=== PATIENT | male | born 1945 | race Caucasian/White ===

== ENCOUNTER 2018-12-17 15:18 | Emergency (ER) | payer MEDICARE ==
[2018-12-17 15:25] VITALS: BP 147/79; PULSE 62; RESP 18; TEMP 98.2
[2018-12-17] MEDS ORDERED: Acetaminophen-Codeine 300-30mg TAB PO STA (15:57)
[2018-12-17] MEDS ORDERED: DEXAMETHASONE 4 MG TAB PO STA (15:57)
[2018-12-17] MEDS ORDERED: KETOROLAC 60 MG/2 ML VIAL IM STA (15:57)
[2018-12-17] MEDS ORDERED: ACET/COD 300 MG/30 MG STARTER PACK 6 TAB BTL PO STA (15:57)
[2018-12-17] MEDS ORDERED: ACETAMINOPHEN TAB 500 MG TAB PO STA (15:58)
--- NOTE | 2018-12-17 17:04 | CT ---
EXAMINATION TYPE: CT lumbar spine wo con DATE OF EXAM: 12/17/2018 4:50 PM COMPARISON: None HISTORY: Right left pain/burning sensation CT DLP: 1464.1 mGycm Automated exposure control for dose reduction was used. Unenhanced CT of the lumbar spine was performed. Bone and soft tissue window settings are submitted as well as coronal and sagittal reconstructions. Lumbar vertebra have normal alignment. Disc spaces are fairly normal for age. There is hypertrophic s purring of the endplates. There is no compression fracture. There is no lumbar paraspinal mass. Poste rior elements are intact. There is no focal bone destruction. There is some mild lateral recess steno sis at L3-4 L4-5 due to facet arthropathy and ligamentum flavum thickening. The sacroiliac joints salomón ear intact. IMPRESSION: Hypertrophic degenerative changes. Lateral recess stenosis. No significant spinal stenosis.
--- NOTE | 2018-12-17 17:06 | CT ---
EXAMINATION TYPE: CT sacrum wo con DATE OF EXAM: 12/17/2018 COMPARISON: None HISTORY: Right left pain/burning sensation CT DLP: 1464.1 mGycm Automated exposure control for dose reduction was used. FINDINGS: Sacral segments have normal alignment. There is no evidence of a fracture. Posterior elements are int act. Presacral soft tissues appear normal. There is no pathologic fluid collection. Sacroiliac joints appear intact. Prostate is enlarged and measures 6 cm. IMPRESSION: ENLARGED PROSTATE. NORMAL SACRUM. NO FRACTURE. NO FOCAL BONE DESTRUCTION.
--- NOTE | 2018-12-17 17:21 | ED ---
Back Pain HPI - General Chief Complaint: Extremity Problem,Nontraumatic Stated Complaint: Rt leg pain Time Seen by Provider: 12/17/18 15:30 Source: patient, RN notes reviewed, old records reviewed Limitations: no limitations - History of Present Illness Initial Comments: This is a 73-year-old male the ER for evaluation. Patient coming in with severe back pain long recent travel history long car ride. Patient is has history of back pain but usually resolves on its own. No loss of bowel or bladder no neurological complaints. No trauma. No fevers. MD Complaint: back pain -: days(s) Similar Symptoms Previously: Yes Place: home Radiation: right leg Severity: moderate Severity scale (1-10): 7 Quality: stabbing, aching Consistency: constant Improves With: none Worsens With: none Associated Symptoms: denies other symptoms - Related Data Home Medications Medication Instructions Recorded Confirmed Albuterol Sulfate [Proair Hfa] 1 puff INHALATION RT-Q4H PRN 03/29/18 12/17/18 Aspirin [Adult Low Dose Aspirin EC] 81 mg PO DAILY 03/29/18 12/17/18 Atenolol [Tenormin] 50 mg PO DAILY 03/29/18 12/17/18 Fluticasone/Salmeterol [Advair 1 puff INHALATION RT-DAILY 03/29/18 12/17/18 250-50 Diskus] Lisinopril [Zestril] 2.5 mg PO HS 03/29/18 12/17/18 Tamsulosin HCl [Flomax] 0.4 mg PO BID 03/29/18 12/17/18 Multivitamins, Thera [Multivitamin 1 tab PO DAILY 12/17/18 12/17/18 (formulary)] Allergies Allergy/AdvReac Type Severity Reaction Status Date / Time Penicillins Allergy Unknown Verified 12/17/18 15:53 Childhood atorvastatin AdvReac Unknown Verified 12/17/18 15:53 Review of Systems ROS Statement: Those systems with pertinent positive or pertinent negative responses have been documented in the HPI. ROS Other: All systems not noted in ROS Statement are negative. Past Medical History Past Medical History: Asthma, COPD, Diabetes Mellitus, Hyperlipidemia History of Any Multi-Drug Resistant Organisms: None Reported Past Surgical History: Cholecystectomy, Tonsillectomy Past Anesthesia/Blood Transfusion Reactions: No Reported Reaction Past Psychological History: No Psychological Hx Reported Smoking Status: Former smoker Past Alcohol Use History: Occasional Past Drug Use History: None Reported General Exam Limitations: no limitations General appearance: alert, in no apparent distress Head exam: Present: atraumatic, normocephalic, normal inspection Eye exam: Present: normal appearance, PERRL, EOMI. Absent: scleral icterus, conjunctival injection, periorbital swelling ENT exam: Present: normal exam, mucous membranes moist Neck exam: Present: normal inspection. Absent: tenderness, meningismus, lymphadenopathy Respiratory exam: Present: normal lung sounds bilaterally. Absent: respiratory distress, wheezes, rales, rhonchi, stridor Cardiovascular Exam: Present: regular rate, normal rhythm, normal heart sounds. Absent: systolic murmur, diastolic murmur, rubs, gallop, clicks GI/Abdominal exam: Present: soft, normal bowel sounds. Absent: distended, tenderness, guarding, rebound, rigid Extremities exam: Present: normal inspection, full ROM, normal capillary refill. Absent: tenderness, pedal edema, joint swelling, calf tenderness Back exam: Present: normal inspection Neurological exam: Present: alert, oriented X3, CN II-XII intact Psychiatric exam: Present: normal affect, normal mood Skin exam: Present: warm, dry, intact, normal color. Absent: rash Course Vital Signs 12/17/18 12/17/18 15:21 17:51 Temperature 98.2 F 98.2 F Pulse Rate 62 62 Respiratory 18 18 Rate Blood Pressure 147/79 147/79 O2 Sat by Pulse 99 99 Oximetry Medical Decision Making - Medical Decision Making 73 male the ER for evaluation of back pain. Severe back pain with history of back pain is had recent travel history, patient's concern for placed back pain is and persistent usually does not last this long. Patient does have CT of lumbosacral spine which is negative. Pain is controlled and patient can be discharged - Radiology Data Radiology results: report reviewed (CT lumbosacral spine. No significant acute dz found), image reviewed Disposition Clinical Impression: Back pain, Sciatica Disposition: HOME SELF-CARE Condition: Good Instructions (If sedation given, give patient instructions): Sciatica (ED), Lumbar Radiculopathy (ED) Is patient prescribed a controlled substance at d/c from ED?: No Referrals: Kenji Painter DO [Primary Care Provider] - 1-2 days
--- NOTE | 2018-12-19 04:33 | CDI ---
Documentation Clarification OP Dear Chapo MANUEL, DO Please do addendum to ED report for missing HPI and Physical examination. Thank you, Rufus Schultz [employer] Starter If you have any questions, please contact Lead Software Developer at [phone] [facility]
== END 2018-12-17 17:51 | disposition home or self-care (01) ==
LOC: EC 15:18
DX: M54.31 Sciatica, right side (principal); J44.9 Chronic obstructive pulmonary disease, unspecified; Z87.891 Personal history of nicotine dependence; Z79.82 Long term (current) use of aspirin; Z79.51 Long term (current) use of inhaled steroids; Z79.899 Other long term (current) drug therapy; Z88.0 Allergy status to penicillin; Z88.8 Allergy status to other drugs, medicaments and biological substances
CPT/HCPCS: 99284; 96372; 72131; 72192; J8540; J1885

== ENCOUNTER → 2018-12-28 | Outpatient (CLI) | payer MEDICARE ==
--- NOTE | 2018-12-28 14:21 | MR ---
EXAMINATION TYPE: MR lumbar spine wo con DATE OF EXAM: 12/28/2018 COMPARISON: CT lumbar spine December 17, 2018 HISTORY: Acute low back pain per order. Right leg pain for 2 weeks or sciatica per patient. TECHNIQUE: Multiplanar, multisequence imaging of the lumbar spine is performed without IV contrast. FINDINGS: There is dextroconvex scoliotic curvature centered at L1-L2 level redemonstrated. Sagittal images of the lumbar spine show vertebral body heights to remain satisfactory. Multilevel disc desicc ation is present. There is moderate disc space narrowing L1-L2 level redemonstrated. There is mild-t o-moderate disc space narrowing L2-L3 level redemonstrated. The conus medullaris is normal in positio n and signal ending mid L1 level. The bone marrow signal intensity is overall heterogeneous. There i s moderate multilevel anterior spurring in the lower thoracic and upper lumbar spine. Axial images show the T12-L1 level to appear within normal limits. Axial images at the L1-L2 level shows moderate broad disc bulge effacing the anterior thecal sac and causing mild left-sided anterior inferior neural foraminal narrowing. Axial images at L2-L3 level show moderate broad disc bulge minimally effacing anterior thecal sac wit h mild facet degenerative changes bilaterally and causing mild left greater than right bilateral ante rior inferior neural foraminal narrowing. Axial images at L3-L4 level show mild facet degenerative changes bilaterally with ligamentum flavum h ypertrophy. There is moderate broad disc bulge with left paracentral disc extrusion extending superio rly sagittal image 8 and axial image 15 effacing lateral recess. There is mild bilateral anterior inf erior neural foraminal narrowing. Axial images at the L4-L5 level show [id number] facet degenerative changes bilaterally. There i s increased signal posteriorly consistent with with annular tear. Broad-based disc protrusion minimal ly effacing anterior thecal sac. Bilateral neural foramina are patent. Axial images at L5-S1 level shows moderate facet degenerative changes bilaterally. There is right par acentral/foraminal disc protrusion axial image 3 causing asymmetric severe right-sided neural foramin al narrowing and encroachment on right L5 nerve with loss of the surrounding fat plane seen on sagitt al images 12 and 13 and axial image 3. Left-sided neural foramina is patent. No suspicious incidental retroperitoneal findings are present. IMPRESSION: Slight scoliotic curvature upper lumbar spine with multilevel degenerative changes as det litzy above. Attention to the L5-S1 level where a right paracentral/foraminal disc herniation encroac hes on right L5 nerve likely accounting for patient's radiculopathy type symptoms.
== END | disposition home or self-care (01) ==
LOC: RADMRIMAIN 10:56
PROVIDERS: ATTEND Family Medicine
DX: M51.27 Other intervertebral disc displacement, lumbosacral region (principal); M47.817 Spondylosis without myelopathy or radiculopathy, lumbosacral region; M41.86 Other forms of scoliosis, lumbar region
CPT/HCPCS: 72148

== ENCOUNTER 2020-02-20 08:59 | Inpatient (IN) | payer MEDICARE ==
[2020-02-20] MEDS ORDERED: ACETAMINOPHEN TAB 500 MG TAB PO STA (09:26)
[2020-02-20] MEDS ORDERED: ACETAMINOPHEN TAB 500 MG TAB PO PRN (09:26)
[2020-02-20] MEDS ORDERED: IPRATROPIUM-ALBUTEROL 3 ML NEB INHALATION STA (09:27)
--- NOTE | 2020-02-20 09:30 | ED ---
General Adult HPI - General Chief complaint: Shortness of Breath Stated complaint: fever, chills Time Seen by Provider: 02/20/20 09:04 Source: patient, RN notes reviewed Mode of arrival: ambulatory Limitations: no limitations - History of Present Illness Initial comments: Patient is a pleasant 74-year-old male presenting to the emergency Department with complaints of fever and chills. Onset of symptoms was around 2 days ago. Patient does have dry cough. Patient does feel a little bit short of breath. Dyspnea and cough feel similar to previous COPD. No leg pain or leg swelling. - Related Data Home Medications Medication Instructions Recorded Confirmed Albuterol Sulfate [Proair Hfa] 2 puff INHALATION RT-Q4H PRN 03/29/18 02/20/20 Aspirin [Adult Low Dose Aspirin EC] 81 mg PO DAILY 03/29/18 02/20/20 Atenolol [Tenormin] 50 mg PO DAILY 03/29/18 02/20/20 Fluticasone/Salmeterol [Advair 1 puff INHALATION RT-DAILY 03/29/18 02/20/20 250-50 Diskus] Lisinopril [Zestril] 2.5 mg PO HS 03/29/18 02/20/20 Tamsulosin HCl [Flomax] 0.8 mg PO HS 03/29/18 02/20/20 Multivitamins, Thera [Multivitamin 1 tab PO DAILY 12/17/18 02/20/20 (formulary)] Rosuvastatin Calcium [Crestor] 5 mg PO HS 02/20/20 02/20/20 Allergies Allergy/AdvReac Type Severity Reaction Status Date / Time atorvastatin Allergy Unknown Verified 02/20/20 10:29 Penicillins Allergy Unknown Verified 02/20/20 10:29 Childhood Review of Systems ROS Statement: Those systems with pertinent positive or pertinent negative responses have been documented in the HPI. ROS Other: All systems not noted in ROS Statement are negative. Constitutional: Reports: fever, chills Eyes: Denies: eye pain ENT: Denies: ear pain Respiratory: Reports: cough, dyspnea Cardiovascular: Denies: chest pain Endocrine: Reports: fatigue Gastrointestinal: Denies: abdominal pain Genitourinary: Denies: dysuria Musculoskeletal: Denies: back pain Skin: Denies: rash Neurological: Denies: weakness Past Medical History Past Medical History: Asthma, COPD, Diabetes Mellitus, Hyperlipidemia History of Any Multi-Drug Resistant Organisms: None Reported Past Surgical History: Cholecystectomy, Tonsillectomy Past Anesthesia/Blood Transfusion Reactions: No Reported Reaction Past Psychological History: No Psychological Hx Reported Smoking Status: Former smoker Past Alcohol Use History: Occasional Past Drug Use History: None Reported General Exam Limitations: no limitations General appearance: alert, in no apparent distress Head exam: Present: normocephalic Eye exam: Present: normal appearance Neck exam: Present: normal inspection Respiratory exam: Present: decreased breath sounds Cardiovascular Exam: Present: regular rate, normal rhythm GI/Abdominal exam: Present: soft. Absent: tenderness Extremities exam: Present: normal inspection. Absent: pedal edema, calf tenderness Back exam: Present: normal inspection Neurological exam: Present: alert Psychiatric exam: Present: normal affect, normal mood Skin exam: Present: normal color Course Vital Signs 02/20/20 02/20/20 02/20/20 09:01 09:57 10:09 Temperature 101.2 F H Pulse Rate 105 H 97 97 Respiratory 20 Rate Blood Pressure 152/73 O2 Sat by Pulse 92 L Oximetry - Reevaluation(s) Reevaluation #1: 02/20/20 11:03 Patient does meet sepsis criteria diagnosed at 11 AM. Blood culture and lactic acid and IV antibiotics will be ordered. EKG Findings - EKG Comments: EKG Findings:: Normal sinus rhythm 98. MS 134. QRS 96. QT 344. QTC 439. Normal axis. Normal QRS. Inferior lateral T wave inversion. Medical Decision Making - Medical Decision Making Patient reevaluated and updated. Dr. Porter has been paged for admission, omari mitchell for Dr. Painter. - Lab Data Result diagrams: 02/20/20 09:26 02/20/20 09:26 Lab Results 02/20/20 02/20/20 02/20/20 Range/Units 09:26 09:26 09:26 WBC 12.9 H (3.8-10.6) k/uL RBC 4.99 (4.30-5.90) m/uL Hgb 15.4 (13.0-17.5) gm/dL Hct 45.6 (39.0-53.0) % MCV 91.3 (80.0-100.0) fL MCH 30.9 (25.0-35.0) pg MCHC 33.8 (31.0-37.0) g/dL RDW 12.7 (11.5-15.5) % Plt Count 347 (150-450) k/uL Neutrophils % 81 % Lymphocytes % 8 % Monocytes % 8 % Eosinophils % 1 % Basophils % 0 % Neutrophils # 10.5 H (1.3-7.7) k/uL Lymphocytes # 1.1 (1.0-4.8) k/uL Monocytes # 1.0 (0-1.0) k/uL Eosinophils # 0.2 (0-0.7) k/uL Basophils # 0.1 (0-0.2) k/uL PT 10.4 (9.0-12.0) sec INR 1.0 (<1.2) APTT 28.2 (22.0-30.0) sec D-Dimer 0.67 H (<0.60) mg/L FEU Sodium 135 L (137-145) mmol/L Potassium 4.0 (3.5-5.1) mmol/L Chloride 102 (98-107) mmol/L Carbon Dioxide 23 (22-30) mmol/L Anion Gap 10 mmol/L BUN 27 H (9-20) mg/dL Creatinine 1.03 (0.66-1.25) mg/dL Est GFR (CKD-EPI)AfAm 84 (>60 ml/min/1.73 sqM) Est GFR (CKD-EPI)NonAf 73 (>60 ml/min/1.73 sqM) Glucose 197 H (74-99) mg/dL Plasma Lactic Acid Daniele (0.7-2.0) mmol/L Calcium 9.3 (8.4-10.2) mg/dL Magnesium 1.7 (1.6-2.3) mg/dL Total Bilirubin 1.0 (0.2-1.3) mg/dL AST 20 (17-59) U/L ALT 18 (4-49) U/L Alkaline Phosphatase 67 (38-126) U/L Lactate Dehydrogenase 457 (313-618) U/L Creatine Kinase 70 (55-170) U/L C-Reactive Protein 199.6 H (<10.0) mg/L Total Protein 6.4 (6.3-8.2) g/dL Albumin 3.5 (3.5-5.0) g/dL 07/01/20 Range/Units 09:26 WBC (3.8-10.6) k/uL RBC (4.30-5.90) m/uL Hgb (13.0-17.5) gm/dL Hct (39.0-53.0) % MCV (80.0-100.0) fL MCH (25.0-35.0) pg MCHC (31.0-37.0) g/dL RDW (11.5-15.5) % Plt Count (150-450) k/uL Neutrophils % % Lymphocytes % % Monocytes % % Eosinophils % % Basophils % % Neutrophils # (1.3-7.7) k/uL Lymphocytes # (1.0-4.8) k/uL Monocytes # (0-1.0) k/uL Eosinophils # (0-0.7) k/uL Basophils # (0-0.2) k/uL PT (9.0-12.0) sec INR (<1.2) APTT (22.0-30.0) sec D-Dimer (<0.60) mg/L FEU Sodium (137-145) mmol/L Potassium (3.5-5.1) mmol/L Chloride (98-107) mmol/L Carbon Dioxide (22-30) mmol/L Anion Gap mmol/L BUN (9-20) mg/dL Creatinine (0.66-1.25) mg/dL Est GFR (CKD-EPI)AfAm (>60 ml/min/1.73 sqM) Est GFR (CKD-EPI)NonAf (>60 ml/min/1.73 sqM) Glucose (74-99) mg/dL Plasma Lactic Acid Daniele 1.9 (0.7-2.0) mmol/L Calcium (8.4-10.2) mg/dL Magnesium (1.6-2.3) mg/dL Total Bilirubin (0.2-1.3) mg/dL AST (17-59) U/L ALT (4-49) U/L Alkaline Phosphatase (38-126) U/L Lactate Dehydrogenase (313-618) U/L Creatine Kinase (55-170) U/L C-Reactive Protein (<10.0) mg/L Total Protein (6.3-8.2) g/dL Albumin (3.5-5.0) g/dL - Radiology Data Radiology results: image reviewed (X-ray does show left lower lobe infiltrate.) Critical Care Time Critical Care Time: Yes Total Critical Care Time: 31 Disposition Clinical Impression: Pneumonia, Sepsis Disposition: ADMITTED IP TO THIS HOSP Is patient prescribed a controlled substance at d/c from ED?: No Referrals: Kenji Painter DO [Primary Care Provider] - 1-2 days Decision Time: 11:04
--- NOTE | 2020-02-20 09:58 | XR ---
EXAMINATION TYPE: XR chest 1V portable DATE OF EXAM: 02/20/2020 HISTORY: Shortness of breath. COMPARISON: None. TECHNIQUE: Single view of the chest is submitted. FINDINGS: Demonstrated are scattered senescent parenchymal change. Patchy density left lower lobe may reflect pneumonia. Correlate clinically. The heart is stable. Hilar and mediastinal structures are within normal limits. Degenerative changes are seen of the dorsal spine. IMPRESSION: 1. Patchy density left lower lobe may reflect pneumonia. Correlate clinically.
[2020-02-20 10:09] LABS: Basophils # (A) 0.1 k/uL (0-0.2); Basophils % (A) 0 %; Eosinophils # (A) 0.2 k/uL (0-0.7); Eosinophils % (A) 1 %; HCT 45.6 % (39.0-53.0); HGB 15.4 gm/dL (13.0-17.5); Lymphocytes # (A) 1.1 k/uL (1.0-4.8); Lymphocytes % (A) 8 %; MCH 30.9 pg (25.0-35.0); MCHC 33.8 g/dL (31.0-37.0); MCV 91.3 fL (80.0-100.0); Mean Platelet Volume 8.2; Monocytes % (A) 8 %; Neutrophils # (A) 10.5 k/uL (1.3-7.7); Neutrophils % (A) 81 %; Platelet Count 347 k/uL (150-450); RBC 4.99 m/uL (4.30-5.90); RDW 12.7 % (11.5-15.5); WBC 12.9 k/uL (3.8-10.6)
[2020-02-20 10:12] LABS: Albumin 3.5 g/dL (3.5-5.0); Calcium 9.3 mg/dL (8.4-10.2); Magnesium 1.7 mg/dL (1.6-2.3); Total Protein 6.4 g/dL (6.3-8.2)
[2020-02-20 10:19] LABS: Partial Thromboplastin Time 28.2 sec (22.0-30.0); Prothrombin Time 10.4 sec (9.0-12.0)
[2020-02-20 10:24] LABS: D-Dimer 0.67 mg/L FEU (<0.60)
[2020-02-20 10:30] LABS: C Reactive Protein 199.6 mg/L (<10.0)
[2020-02-20] MEDS ORDERED: AZITHROMYCIN 500 MG in SODIUM CHLORIDE 0.9% 250 ML IVPB STA (11:05)
[2020-02-20] MEDS ORDERED: IPRATROPIUM-ALBUTEROL 3 ML NEB INHALATION PRN (11:05)
[2020-02-20] MEDS ORDERED: PNEUMONIA PROTOCOL UTILIZED 1 EACH MISC PO PRN (11:05)
[2020-02-20] MEDS: SODIUM CHLORIDE 0.9% 1,000 ML IV SCH ×2 (11:48→21:32)
[2020-02-20] MEDS ORDERED: PNEUMOCOCCAL VACC-PNEUMOVAX 23 25 MCG/0.5 ML VIAL IM ONE (12:16)
[2020-02-20] MEDS: IPRATROPIUM-ALBUTEROL 3 ML NEB INHALATION SCH ×3 (16:31→19:39)
[2020-02-20 18:44] LABS: Ferritin 503.6 ng/mL (22.0-322.0)
[2020-02-20] MEDS ORDERED: ENOXAPARIN 40 MG/0.4 ML SYRINGE SQ SCH (21:00)
[2020-02-20] MEDS: TAMSULOSIN 0.4 MG CAP.ER.24H PO SCH (21:24)
[2020-02-20] MEDS: LISINOPRIL 2.5 MG TAB PO SCH (21:24)
[2020-02-20] MEDS: Rosuvastatin Calcium [Crestor] 5 MG PO SCH (21:25)
--- NOTE | 2020-02-20 22:48 | P.HPIM ---
History of Present Illness H&P Date: 02/20/20 Chief Complaint: Fever History of presenting complaint: This is a pleasant 74-year-old patient of Dr. munroe. Chronic stable medical conditions include COPD, diabetes, GERD, osteoarthritis, hyperlipidemia, BPH, chronic low back pain. Patient to 3 days presents with fever or chills dry cough. Decreased appetite is tired rundown. Having body aches. Patient had a 101.2 in the ER. Patient was started on ceftriaxone and Zithromax for the same. Not bringing up any sputum. Rather tired and rundown. Review of systems: GEN.: Fever or chills EYES: None HEENT: Decreased hearing NECK: None RESPIRATORY: Dry cough CARDIOVASCULAR: None GASTROINTESTINAL: None GENITOURINARY: None MUSCULOSKELETAL: None LYMPHATICS: None HEMATOLOGICAL: None PSYCHIATRY: None NEUROLOGICAL: None Past medical history to include: COPD, GERD, hyperlipidemia, osteoarthritis, BPH, primary low back pain Social history: Patient smoked for 34 years stopped in 1999. Alcohol occasionally. . Retired Physical examination: VITAL SIGNS: 101.2, 105, 20, 152/73, 92% room air GENERAL: [BMI 29.5, laying in bed, tired appearing. EYES: Pupils equal. Conjunctiva normal. HEENT: External appearance of nose and ears normal, oral cavity grossly normal. NECK: JVD not raised; masses not palpable. HEART: First and second heart sounds are normal; no edema. LUNGS: Respiratory rate normal; decreased breath sounds. ABDOMEN: Soft, nontender, liver spleen not palpable, no masses palpable. PSYCH: [Alert and oriented x3; mood and affect tired l. NEUROLOGICAL: Cranial nerves grossly intact; no facial asymmetry, power and sensation grossly intact. LYMPHATICS: No lymph nodes palpable in the axilla and neck INVESTIGATIONS, reviewed in the clinical context: White count 12.9 hemoglobin 15.4 platelets 347 neutrophils 10.5. D-dimer 0.67 potassium 4 bun 27 creatinine 1.03 ferritin 503 CRP 199 pro calcitonin 1.61 Troponin I 0.20 EKG tracing personally reviewed by me-flipped T waves in lateral leads Chest x-ray film personally reviewed by me-showing infiltrate Assessment: -This is a patient presented with 3 days of fever or chills. Dry cough. No sputum production. Bodyaches. Pulse ox 92% on room air. Suspect gram-negative pneumonia. Need to consider COVID 19 -COPD in an ex-smoker -Diabetes mellitus type 2 -GERD -Hyperlipidemia -Primary osteoarthritis -BPH Plan: Patient started and IV ceftriaxone Zithromax and ear. Home medications resumed. IV fluids. COVID 19 PCR has been sent out. Care was discussed with the patient. We'll start the patient on Lovenox therapeutic dose and steroids. Consult infectious disease. Past Medical History Past Medical History: Asthma, COPD, Diabetes Mellitus, GERD/Reflux, Hyperlipi demia, Osteoarthritis (OA), Prostate Disorder Additional Past Medical History / Comment(s): BPH, chronic low back pain History of Any Multi-Drug Resistant Organisms: None Reported Past Surgical History: Cholecystectomy, Orthopedic Surgery, Tonsillectomy Additional Past Surgical History / Comment(s): R rotator cuff surgery, lumbar epidural injections, colonoscopy Past Anesthesia/Blood Transfusion Reactions: No Reported Reaction Smoking Status: Former smoker - Past Family History Father Family Medical History: Cancer Additional Family Medical History / Comment(s): Pt cannot recall type of cancer. Mother Family Medical History: Coronary Artery Disease (CAD) Medications and Allergies Home Medications Medication Instructions Recorded Confirmed Type Albuterol Sulfate [Proair Hfa] 2 puff INHALATION RT-Q4H PRN 03/29/18 02/20/20 History Aspirin [Adult Low Dose Aspirin EC] 81 mg PO DAILY 03/29/18 02/20/20 History Atenolol [Tenormin] 50 mg PO DAILY 03/29/18 02/20/20 History Fluticasone/Salmeterol [Advair 1 puff INHALATION RT-DAILY 03/29/18 02/20/20 History 250-50 Diskus] Lisinopril [Zestril] 2.5 mg PO HS 03/29/18 02/20/20 History Tamsulosin HCl [Flomax] 0.8 mg PO HS 03/29/18 02/20/20 History Multivitamins, Thera [Multivitamin 1 tab PO DAILY 12/17/18 02/20/20 History (formulary)] Rosuvastatin Calcium [Crestor] 5 mg PO HS 02/20/20 02/20/20 History Allergies Allergy/AdvReac Type Severity Reaction Status Date / Time atorvastatin Allergy Unknown Verified 02/20/20 10:29 Penicillins Allergy Unknown Verified 07/01/20 10:29 Childhood Physical Exam Vitals: Vital Signs Temp Pulse Pulse Resp BP BP BP 02/20/20 19:49 95 18 02/20/20 19:39 94 18 02/20/20 19:30 98.2 F 91 20 156/73 02/20/20 16:41 96 02/20/20 16:31 96 02/20/20 15:29 19 02/20/20 15:22 98.1 F 02/20/20 14:55 99.5 F 98 19 172/81 02/20/20 13:20 98.5 F 88 18 118/66 02/20/20 10:58 100.1 F H 88 18 104/69 02/20/20 10:09 97 02/20/20 09:57 97 02/20/20 09:01 101.2 F H 105 H 20 152/73 Pulse Ox 02/20/20 19:49 02/20/20 19:39 02/20/20 19:30 93 L 02/20/20 16:41 02/20/20 16:31 02/20/20 15:29 02/20/20 15:22 02/20/20 14:55 90 L 02/20/20 13:20 95 02/20/20 10:58 93 L 02/20/20 10:09 02/20/20 09:57 02/20/20 09:01 92 L Intake and Output 02/20/20 02/20/20 02/20/20 06:59 14:59 22:59 Other: # Voids 1 Weight 104.326 kg Results CBC & Chem 7: 02/20/20 09:26 02/20/20 09:26 Labs: Abnormal Lab Results - Last 24 Hours (Table) 02/20/20 02/20/20 02/20/20 Range/Units 09:26 09:26 09:26 WBC 12.9 H (3.8-10.6) k/uL Neutrophils # 10.5 H (1.3-7.7) k/uL D-Dimer 0.67 H (<0.60) mg/L FEU Sodium 135 L (137-145) mmol/L BUN 27 H (9-20) mg/dL Glucose 197 H (74-99) mg/dL Ferritin 503.6 H (22.0-322.0) ng/mL C-Reactive Protein 199.6 H (<10.0) mg/L Procalcitonin (0.02-0.09) ng/mL 02/20/20 Range/Units 09:26 WBC (3.8-10.6) k/uL Neutrophils # (1.3-7.7) k/uL D-Dimer (<0.60) mg/L FEU Sodium (137-145) mmol/L BUN (9-20) mg/dL Glucose (74-99) mg/dL Ferritin (22.0-322.0) ng/mL C-Reactive Protein (<10.0) mg/L Procalcitonin 1.61 H (0.02-0.09) ng/mL Thrombosis Risk Factor Assmnt - Choose All That Apply Any of the Below Risk Factors Present?: Yes Each Factor Represents 1 point: Abnormal pulmonary function (COPD), Obesity (BMI >25), Sepsis (< 1month), Swollen legs (current) Other Risk Factors: Yes Each Risk Factor Represents 2 Points: Age 61-74 years Other congenital or acquired thrombophilia - If yes, enter type in comment: No Thrombosis Risk Factor Assessment Total Risk Factor Score: 6 Thrombosis Risk Factor Assessment Level: High Risk
[2020-02-20] MEDS ORDERED: NALOXONE 0.4 MG/ML 1 ML VIAL IV PRN (22:49)
[2020-02-20] MEDS ORDERED: ONDANSETRON 4 MG/2 ML VIAL IVP PRN (22:49)
[2020-02-20] MEDS ORDERED: MAGNESIUM HYDROXIDE 2,400 MG/10 ML CUP PO PRN (22:49)
[2020-02-20] MEDS ORDERED: MELATONIN 3 MG TABLET PO PRN (22:49)
[2020-02-20] MEDS ORDERED: LACTULOSE 20 GM/30 ML CUP PO PRN (22:49)
[2020-02-20] MEDS ORDERED: CALCIUM CARBONATE 500 MG CHEWABLE PO PRN (22:49)
[2020-02-20] MEDS ORDERED: MAG HYDROX/AL HYDROX/SIMETH 30 ML CUP PO PRN (22:49)
[2020-02-20] MEDS ORDERED: ACETAMINOPHEN TAB 325 MG TAB PO PRN (22:49)
[2020-02-20] MEDS ORDERED: ALPRAZolam 0.25 MG TAB PO PRN (22:49)
[2020-02-20] MEDS: methylPREDNISolone SOD SUCCI 40 MG/ML 1 ML VIAL IV SCH (23:50)
[2020-02-21 07:06] LABS: Glucose,Whole Blood 194 mg/dL (75-99)
--- NOTE | 2020-02-21 07:16 | XR ---
EXAMINATION TYPE: XR chest 2V DATE OF EXAM: 02/21/2020 COMPARISON: 02/20/2020 HISTORY: 74-year-old male pneumonia TECHNIQUE: PA and lateral views FINDINGS: Heart normal size. Aorta and pulmonary vasculature within normal limits. Mild interstitial prominence especially at the left mid and lower lung with patchy opacity in the retrocardiac region. This densi ty may be slightly increased from prior. IMPRESSION: Continued left lower lobe infiltrate/pneumonia.
[2020-02-21 07:52] LABS: Basophils % (A) 0 %; Eosinophils # (A) 0.1 k/uL (0-0.7); Eosinophils % (A) 1 %; HCT 44.3 % (39.0-53.0); HGB 14.2 gm/dL (13.0-17.5); Lymphocytes # (A) 0.9 k/uL (1.0-4.8); Lymphocytes % (A) 9 %; MCH 29.7 pg (25.0-35.0); MCV 92.9 fL (80.0-100.0); Mean Platelet Volume 7.7; Monocytes # (A) 0.4 k/uL (0-1.0); Monocytes % (A) 4 %; Neutrophils # (A) 8.2 k/uL (1.3-7.7); Neutrophils % (A) 85 %; Platelet Count 375 k/uL (150-450); RBC 4.77 m/uL (4.30-5.90); RDW 12.8 % (11.5-15.5); WBC 9.6 k/uL (3.8-10.6)
[2020-02-21] MEDS: methylPREDNISolone SOD SUCCI 40 MG/ML 1 ML VIAL IV SCH ×2 (07:58→16:37)
[2020-02-21] MEDS: INSULIN ASPART (NovoLOG) 100 UNIT/ML VIAL SQ SCH ×4 (07:58→20:59)
[2020-02-21] MEDS: SODIUM CHLORIDE 0.9% 1,000 ML IV SCH ×2 (07:58→16:38)
[2020-02-21] MEDS: ATENOLOL 50 MG TAB PO SCH (07:59)
[2020-02-21] MEDS: MULTIVITAMINS, THERA 1 EACH TAB PO SCH (07:59)
[2020-02-21] MEDS: ENOXAPARIN 100 MG/ML SYRINGE SQ SCH ×2 (07:59→20:58)
[2020-02-21] MEDS: AZITHROMYCIN 500 MG TAB PO SCH (07:59)
[2020-02-21] MEDS: ASPIRIN 81 MG PO SCH (07:59)
[2020-02-21 08:11] LABS: Albumin 3.1 g/dL (3.5-5.0); Calcium 8.5 mg/dL (8.4-10.2); Potassium 3.8 mmol/L (3.5-5.1); Total Bilirubin 0.5 mg/dL (0.2-1.3); Total Protein 5.8 g/dL (6.3-8.2)
[2020-02-21] MEDS: IPRATROPIUM-ALBUTEROL 3 ML NEB INHALATION SCH ×4 (08:51→20:27)
[2020-02-21 11:26] LABS: Glucose,Whole Blood 220 mg/dL (75-99)
[2020-02-21] MEDS: SYMBICORT 80-4.5 MCG INHALER INHALATION SCH ×2 (12:24→20:27)
--- NOTE | 2020-02-21 14:47 | CDI ---
Documentation Clarification Form Date: 02/21/2020 02:26:04 PM From: Bailey Peña RN, CCDS Admit Date: 02/20/2020 11:05:00 AM Patient Name: Allan Cruz Visit Number: [id number] Discharge Date: ATTENTION: The Clinical Documentation Specialists (CDI) and [facility] Coding Staff appreciate your assistance in clarifying documentation. Please respond to the clarification below the line at the bottom and electronically sign. The CDI & [facility] Coding staff will review the response and follow-up if needed. Please note: Queries are made part of the Legal Health Record. If you have any questions, please contact the author of this message via ITS. Dr. Carter Porter The patient presented with fever and chills. ED assessment has indicated sepsis. Request your clinical opinion to clarify if sepsis is ruled in or out. History/Risk Factors: Asthma, COPD, Diabetes Mellitus, Former smoker Clinical Indicators: 74-year-old male who present to ED on 02/19 with complaints of fever and chills ongoing for 2 days. He has a dry cough and some shortness of breath, per ED assessment. 02/19 @09:01 Vital signs: 152/73 105 20 101.2 92 % RA 02/19 WBC 12.9 C-Reactive protein 199.6, LDH 457, Ferritin 503.6, Procalcitonin 1.61, 02/19 Coronavirus (PCR) Not Detected 02/19 Lactic acid: 1.9 02/19 CXR: Left lower lobe infiltrate 02/19 Blood cultures: Pending Treatment: 02/20 ID Consult: Pending Zithromax 500 iv sta, then 50 mg po daily rocephing 1 gm iv q day Solu-Medrol 40 iv q8 hrs .9 NS @ 50 mls/hr IV Bolus: Monitor CBC, O2 sat's, Procalcitonin daily In your professional opinion, please clarify if these findings signify one of the following conditions, whether the condition is POA, and cause, if known: Condition Sepsis ruled out Sepsis ruled in (specify infection source) Other, please specify Unable to determine Present on Admission Yes No Identify the (suspected) organism Link or clarify if there is associated (due to/with): SIRS Criteria (2 or more of the following may indicate SIRS): -Temperature < 96.8F (36C) or > 101.0F (38.3C) -Heart Rate > 90 bpm -Respiratory Rate > 20 breaths/min or PaCO2 < 32 mmHg -White Blood Cell Count > 12,000 or < 4,000 cells/mm3 or > 10% bands -Lactate >2.0 mmol/L (>4.0 is equivalent to septic shock) (Last Revision: November 2017) MTDD
[2020-02-21 16:43] LABS: Glucose,Whole Blood 249 mg/dL (75-99)
[2020-02-21 20:34] LABS: Glucose,Whole Blood 183 mg/dL (75-99)
[2020-02-21] MEDS: TAMSULOSIN 0.4 MG CAP.ER.24H PO SCH (20:58)
[2020-02-21] MEDS: LISINOPRIL 2.5 MG TAB PO SCH (20:59)
[2020-02-21] MEDS: Rosuvastatin Calcium [Crestor] 5 MG PO SCH (21:20)
--- NOTE | 2020-02-21 21:50 | P.PN ---
Progress Note - Text Progress Note Date: 02/21/20 Chief Complaint: Fever History of presenting complaint: This is a pleasant 74-year-old patient of Dr. munroe. Chronic stable medical conditions include COPD, diabetes, GERD, osteoarthritis, hyperlipidemia, BPH, chronic low back pain. Patient to 3 days presents with fever or chills dry cough. Decreased appetite is tired rundown. Having body aches. Patient had a fever 101.2 in the ER. Patient was started on ceftriaxone and Zithromax for the same. Not bringing up any sputum. Rather tired and rundown. Admitted with pneumonia. Started and IV ceftriaxone and Zithromax. Today-feeling better. Appetite improved. Breathing is improved. COVID ruled out. Did get up to the bathroom. at the bedside. No further fever Review of systems: Was done for constitutional, cardiovascular, GI, pulmonary. relevant finding as above Active Medications Acetaminophen (Tylenol Tab) 1,000 mg PO Q6HR PRN PRN Reason: Fever>101 Last Admin: 02/20/20 15:15 Dose: 1,000 mg Documented by: Acetaminophen (Tylenol Tab) 650 mg PO Q6HR PRN PRN Reason: Mild Pain or Fever > 100.5 Al Hydroxide/Mg Hydroxide (Maalox) 15 ml PO Q6HR PRN PRN Reason: Indigestion Albuterol/Ipratropium (Duoneb 0.5 Mg-3 Mg/3 Ml Soln) 3 ml INHALATION RT-QID [facility] Last Admin: 02/21/20 20:27 Dose: 3 ml Documented by: Albuterol/Ipratropium (Duoneb 0.5 Mg-3 Mg/3 Ml Soln) 3 ml INHALATION RT-Q4H PRN PRN Reason: shortness of breath Alprazolam (Xanax) 0.25 mg PO Q6HR PRN PRN Reason: Anxiety Aspirin (Aspirin) 81 mg PO DAILY [facility] Last Admin: 02/21/20 07:59 Dose: 81 mg Documented by: Atenolol (Tenormin) 50 mg PO DAILY [facility] Last Admin: 02/21/20 07:59 Dose: 50 mg Documented by: Azithromycin (Zithromax) 500 mg PO DAILY [facility] Last Admin: 02/21/20 07:59 Dose: 500 mg Documented by: Budesonide/Formoterol Fumarate (Symbicort 80-4.5 Mcg Inhaler) 2 puff INHALATION RT-BID [facility] Last Admin: 02/21/20 20:27 Dose: 2 puff Documented by: Calcium Carbonate/Glycine (Tums) 1,000 mg PO Q4HR PRN PRN Reason: Dyspepsia Enoxaparin Sodium (Lovenox) 100 mg SQ Q12HR [facility] Last Admin: 02/21/20 20:58 Dose: 100 mg Documented by: Ceftriaxone Sodium 1 gm/ (Sodium Chloride) 50 mls @ 100 mls/hr IVPB Q24HR [facility] Stop: 02/24/20 09:01 Last Admin: 02/21/20 07:57 Dose: 100 mls/hr Documented by: Sodium Chloride (Saline 0.9%) 1,000 mls @ 50 mls/hr IV .Q20H [facility] Last Admin: 02/21/20 16:38 Dose: 50 mls/hr Documented by: Insulin Aspart (Novolog) 0 unit SQ [facility]; Protocol Last Admin: 02/21/20 20:59 Dose: 4 unit Documented by: Lactulose (Cephulac) 20 gm PO DAILY PRN PRN Reason: Constipation Lisinopril (Zestril) 2.5 mg PO HS [facility] Last Admin: 02/21/20 20:59 Dose: 2.5 mg Documented by: Magnesium Hydroxide (Milk Of Magnesia) 2,400 mg PO DAILY PRN PRN Reason: Constipation Melatonin (Melatonin) 3 mg PO HS PRN PRN Reason: Insomnia Methylprednisolone Sodium Succinate (Solu-Medrol) 40 mg IV Q8HR [facility] Last Admin: 02/21/20 16:37 Dose: 40 mg Documented by: Miscellaneous Information (Pneumonia Protocol Utilized) 1 each PO ONCE PRN PRN Reason: Per Protocol Multivitamins (Theragran) 1 each PO DAILY [facility] Last Admin: 02/21/20 07:59 Dose: 1 each Documented by: Naloxone HCl (Narcan) 0.2 mg IV Q2M PRN PRN Reason: Opioid Reversal Rosuvastatin Calcium ([Crestor] 5 Mg) 5 mg PO HS [facility] Last Admin: 02/21/20 21:20 Dose: Not Given Documented by: Ondansetron HCl (Zofran) 4 mg IVP Q8HR PRN PRN Reason: Nausea And Vomiting Tamsulosin HCl (Flomax) 0.8 mg PO HS [facility] Last Admin: 02/21/20 20:58 Dose: 0.8 mg Documented by: Physical examination: VITAL SIGNS: 98.3, 75, 20, 159/78, 90% on 3 L GENERAL: Sitting up in the bed, looking better EYES: Pupils equal. Conjunctiva normal. HEENT: External appearance of nose and ears normal, oral cavity grossly normal. NECK: JVD not raised; masses not palpable. HEART: First and second heart sounds are normal; no edema. LUNGS: Respiratory rate normal; decreased breath sounds. ABDOMEN: Soft, nontender, liver spleen not palpable, no masses palpable. PSYCH: [Alert and oriented x3; mood and affect tired l. INVESTIGATIONS, reviewed in the clinical context: White count 9.6 hemoglobin 14.2 increased neutrophils potassium 3.8 creatinine 0.99 COVID 19 PCR-not detected Previous testing White count 12.9 hemoglobin 15.4 platelets 347 neutrophils 10.5. D-dimer 0.67 potassium 4 bun 27 creatinine 1.03 ferritin 503 CRP 199 pro calcitonin 1.61 Troponin I 0.20 EKG tracing personally reviewed by me-flipped T waves in lateral leads Chest x-ray film personally reviewed by me-showing infiltrate Assessment: -Possible Gram-negative pneumonia, causing sepsis, POA COVID 19 ruled out -COPD in an ex-smoker -Diabetes mellitus type 2 -GERD -Hyperlipidemia -Primary osteoarthritis -BPH Plan: Continue current antibiotics. Discussed with the patient and . Patient clinically doing better. Encouraged to ambulate.
[2020-02-22] MEDS: methylPREDNISolone SOD SUCCI 40 MG/ML 1 ML VIAL IV SCH ×2 (00:26→08:25)
[2020-02-22 07:18] LABS: Glucose,Whole Blood 235 mg/dL (75-99)
--- NOTE | 2020-02-22 07:57 | P.CONS ---
History of Present Illness - Reason for Consult Consult date: 02/21/20 Fever and pneumonia Requesting physician: Carter Porter - Chief Complaint Fever 2 days - History of Present Illness Patient is a 74-year-old male with a past medical history significant for COPD presenting to the hospital with chief complaints of fever rigors and chills 2 days, the patient denies having any headache or significant URI symptoms patient did very minimal cough which has been drying nature and is unable to break up any sputum patient denies having any pleuritic chest pain has some shortness of breath denies having any nausea no vomiting no abdominal pain and no diarrhea and no urinary symptoms but the symptoms the patient was evaluated by the ER physician on arrival to the ER the patient did have fever of 101F patient was tachycardic with heart rate of 105 and elevated white count of 12,000 patient did have a chest x-ray that was suggestive of left lower lobe pneumonia patient did have elevated CRP and procalcitonin level ,[place] PCR came back negative patient has been started on Rocephin, Zithromax and steroids infection he was consulted for further management of antibiotic therapy Review of Systems Positive point has been mentioned in the HPI rest of the systems are negative Past Medical History Past Medical History: Asthma, COPD, Diabetes Mellitus, GERD/Reflux, Hyperlipidemia, Osteoarthritis (OA), Prostate Disorder Additional Past Medical History / Comment(s): BPH, chronic low back pain History of Any Multi-Drug Resistant Organisms: None Reported Past Surgical History: Cholecystectomy, Orthopedic Surgery, Tonsillectomy Additional Past Surgical History / Comment(s): R rotator cuff surgery, lumbar epidural injections, colonoscopy Past Anesthesia/Blood Transfusion Reactions: No Reported Reaction Smoking Status: Former smoker - Past Family History Father Family Medical History: Cancer Additional Family Medical History / Comment(s): Pt cannot recall type of cancer. Mother Family Medical History: Coronary Artery Disease (CAD) Medications and Allergies Home Medications Medication Instructions Recorded Confirmed Type Albuterol Sulfate [Proair Hfa] 2 puff INHALATION RT-Q4H PRN 03/29/18 02/20/20 History Aspirin [Adult Low Dose Aspirin EC] 81 mg PO DAILY 03/29/18 02/20/20 History Atenolol [Tenormin] 50 mg PO DAILY 03/29/18 02/20/20 History Fluticasone/Salmeterol [Advair 1 puff INHALATION RT-DAILY 03/29/18 02/20/20 History 250-50 Diskus] Lisinopril [Zestril] 2.5 mg PO HS 03/29/18 02/20/20 History Tamsulosin HCl [Flomax] 0.8 mg PO HS 03/29/18 02/20/20 History Multivitamins, Thera [Multivitamin 1 tab PO DAILY 12/17/18 02/20/20 History (formulary)] Rosuvastatin Calcium [Crestor] 5 mg PO HS 02/20/20 02/20/20 History Allergies Allergy/AdvReac Type Severity Reaction Status Date / Time atorvastatin Allergy Unknown Verified 02/20/20 10:29 Penicillins Allergy Unknown Verified 02/20/20 10:29 Childhood Physical Exam Vitals: Vital Signs Temp Pulse Pulse Resp BP BP Pulse Ox 02/21/20 15:00 98.8 F 82 18 125/68 90 L 02/21/20 12:43 96 02/21/20 12:25 92 02/21/20 09:07 96 02/21/20 08:55 96 02/21/20 07:00 98.3 F 75 20 159/78 90 L 02/21/20 01:35 100 F H 99 20 131/71 96 02/20/20 23:30 20 02/20/20 20:00 91 18 02/20/20 19:49 95 18 02/20/20 19:39 94 18 02/20/20 19:30 98.2 F 91 20 156/73 93 L 02/20/20 16:41 96 02/20/20 16:31 96 Intake and Output 02/21/20 02/21/20 02/21/20 06:59 14:59 22:59 Other: Voiding Method Toilet Toilet # Voids 1 GENERAL DESCRIPTION: An elderly male lying in bed, no distress. No tachypnea or accessory muscle of respiration use. HEENT: Shows Pallor , no scleral icterus. Oral mucous membrane is dry. No pharyngeal erythema or thrush NECK: Trachea central, no thyromegaly. LUNGS: Unlabored breathing. Few coarse crackles at the left base. No wheeze . HEART: S1, S2, regular rate and rhythm. No loud murmur ABDOMEN: Soft, no tenderness , guarding or rigidity, no organomegaly EXTREMITIES: No edema of feet. SKIN: No rash, no masses palpable. NEUROLOGICAL: The patient is awake, alert, oriented x3, mood and affect normal. Results CBC & Chem 7: 02/21/20 07:33 02/21/20 07:33 Labs: Abnormal Lab Results - Last 24 Hours (Table) 02/20/20 02/20/20 02/21/20 Range/Units 09:26 09:26 07:05 Neutrophils # (1.3-7.7) k/uL Lymphocytes # (1.0-4.8) k/uL BUN (9-20) mg/dL Glucose (74-99) mg/dL POC Glucose (mg/dL) 194 H (75-99) mg/dL Ferritin 503.6 H (22.0-322.0) ng/mL Total Protein (6.3-8.2) g/dL Albumin (3.5-5.0) g/dL Procalcitonin 1.61 H (0.02-0.09) ng/mL 02/21/20 02/21/20 02/21/20 Range/Units 07:33 07:33 11:24 Neutrophils # 8.2 H (1.3-7.7) k/uL Lymphocytes # 0.9 L (1.0-4.8) k/uL BUN 28 H (9-20) mg/dL Glucose 193 H (74-99) mg/dL POC Glucose (mg/dL) 220 H (75-99) mg/dL Ferritin (22.0-322.0) ng/mL Total Protein 5.8 L (6.3-8.2) g/dL Albumin 3.1 L (3.5-5.0) g/dL Procalcitonin (0.02-0.09) ng/mL Microbiology - Last 24 Hours (Table) 02/20/20 09:26 Blood Culture - Preliminary Blood No Growth after 24 hours Assessment and Plan Assessment: 1- patient presented to hospital with sepsis in this patient who did have a fever tachycardia and elevated white count source is left lower lobe pneumonia likely community acquired and the patient has been ruled out for covid 19 infection 2-patient with penicillin ALLERGY that would limit the number of the biotic safe to use however the patient has tolerated Rocephin without any problem (1) Pneumonia Current Visit: Yes Status: Acute Code(s): J18.9 - PNEUMONIA, UNSPECIFIED O RGANISM SNOMED Code(s): 972964135 (2) Sepsis Current Visit: Yes Status: Acute Code(s): A41.9 - SEPSIS, UNSPECIFIED ORGANISM SNOMED Code(s): 03440152 (3) Penicillin allergy Current Visit: Yes Status: Acute Code(s): Z88.0 - ALLERGY STATUS TO PENICILLIN SNOMED Code(s): 05330919 Plan: 1- we will try to obtain sputum for Gram stain and culture 2-Rocephin 1 g daily and Zithromax to continue We will follow on clinical condition and cultures to further adjust medication if needed Thank you for this consultation will follow this patient with you Time with Patient: Greater than 30
[2020-02-22 08:14] VITALS: BP 145/74; RESP 16; TEMP 98.6
[2020-02-22] MEDS: IPRATROPIUM-ALBUTEROL 3 ML NEB INHALATION SCH ×2 (08:25→11:38)
[2020-02-22] MEDS: INSULIN ASPART (NovoLOG) 100 UNIT/ML VIAL SQ SCH ×2 (08:25→11:52)
[2020-02-22] MEDS: SYMBICORT 80-4.5 MCG INHALER INHALATION SCH (08:25)
[2020-02-22] MEDS: ENOXAPARIN 100 MG/ML SYRINGE SQ SCH (08:26)
[2020-02-22] MEDS: ASPIRIN 81 MG PO SCH (08:26)
[2020-02-22] MEDS: ATENOLOL 50 MG TAB PO SCH (08:26)
[2020-02-22] MEDS: MULTIVITAMINS, THERA 1 EACH TAB PO SCH (08:26)
[2020-02-22] MEDS: SODIUM CHLORIDE 0.9% 1,000 ML IV SCH (08:26)
[2020-02-22] MEDS: AZITHROMYCIN 500 MG TAB PO SCH (08:26)
[2020-02-22 11:41] VITALS: PULSE 88
[2020-02-22 11:55] LABS: Glucose,Whole Blood 198 mg/dL (75-99)
--- NOTE | 2020-02-22 23:29 | P.DS ---
Providers Date of admission: 02/20/20 11:05 Expected date of discharge: 02/22/20 Attending physician: Carter Porter Consults: 02/20/20 22:50 Consult Physician Routine Consulting Provider: Zane Polanco Consult Reason/Comments: Fever Do you want consulting provider notified?: Yes Primary care physician: Kenji [facility] Course: Chief Complaint: Fever History of presenting complaint: This is a pleasant 74-year-old patient of Dr. munroe. Chronic stable medical conditions include COPD, diabetes, GERD, osteoarthritis, hyperlipidemia, BPH, chronic low back pain. Patient to 3 days presents with fever or chills dry cough. Decreased appetite is tired rundown. Having body aches. Patient had a fever 101.2 in the ER. Patient was started on ceftriaxone and Zithromax for the same. Not bringing up any sputum. Rather tired and rundown. Admitted with pneumonia. Started and IV ceftriaxone and Zithromax. COVID ruled out. Today- greatly improved. No respiratory symptoms. Up and about. Tolerating diet. Care was discussed in length with the patient. Question answered. Review of systems: Was done for constitutional, cardiovascular, GI, pulmonary. relevant finding as above Physical examination: VITAL SIGNS: 98.6, 81, 16, and 45/74, 91% room air GENERAL: Sitting up, comfortable EYES: Pupils equal. Conjunctiva normal. HEENT: External appearance of nose and ears normal, oral cavity grossly normal. NECK: JVD not raised; masses not palpable. HEART: First and second heart sounds are normal; no edema. LUNGS: Respiratory rate normal; improved air entry ABDOMEN: Soft, nontender, liver spleen not palpable, no masses palpable. PSYCH: [Alert and oriented x3; mood and affect tired l. INVESTIGATIONS, reviewed in the clinical context: Pro calcitonin 1.34 Previous testing White count 12.9 hemoglobin 15.4 platelets 347 neutrophils 10.5. D-dimer 0.67 potassium 4 bun 27 creatinine 1.03 ferritin 503 CRP 199 pro calcitonin 1.61 Troponin I 0.20 EKG tracing personally reviewed by me-flipped T waves in lateral leads Chest x-ray film personally reviewed by me-showing infiltrate COVID 19 PCR-not detected Assessment: -Possible Gram-negative pneumonia, causing sepsis, POA COVID 19 ruled out -COPD in an ex-smoker -Diabetes mellitus type 2 -GERD -Hyperlipidemia -Primary osteoarthritis -BPH Disposition: Home Plan - Discharge Summary Discharge Rx Participant: No New Discharge Prescriptions: New Cefuroxime Axetil [Ceftin] 500 mg PO BID 3 Days #6 tab Continue Lisinopril [Zestril] 2.5 mg PO HS Tamsulosin HCl [Flomax] 0.8 mg PO HS Atenolol [Tenormin] 50 mg PO DAILY Aspirin [Adult Low Dose Aspirin EC] 81 mg PO DAILY Fluticasone/Salmeterol [Advair 250-50 Diskus] 1 puff INHALATION RT-DAILY Albuterol Sulfate [Proair Hfa] 2 puff INHALATION RT-Q4H PRN PRN Reason: Shortness Of Breath Multivitamins, Thera [Multivitamin (formulary)] 1 tab PO DAILY Rosuvastatin Calcium [Crestor] 5 mg PO HS Discharge Medication List Albuterol Sulfate [Proair Hfa] 2 puff INHALATION RT-Q4H PRN 03/29/18 [History] Aspirin [Adult Low Dose Aspirin EC] 81 mg PO DAILY 03/29/18 [History] Atenolol [Tenormin] 50 mg PO DAILY 03/29/18 [History] Fluticasone/Salmeterol [Advair 250-50 Diskus] 1 puff INHALATION RT-DAILY 03/29/18 [History] Lisinopril [Zestril] 2.5 mg PO HS 03/29/18 [History] Tamsulosin HCl [Flomax] 0.8 mg PO HS 03/29/18 [History] Multivitamins, Thera [Multivitamin (formulary)] 1 tab PO DAILY 12/17/18 [History] Rosuvastatin Calcium [Crestor] 5 mg PO HS 02/20/20 [History] Cefuroxime Axetil [Ceftin] 500 mg PO BID 3 Days #6 tab 02/22/20 [Rx] Follow up Appointment(s)/Referral(s): Kenji Munroe DO [Primary Care Provider] - 1-2 days (Office Closed at time of discharge please call TuesdayFebruary 24 to set up a follow up appointment) Patient Instructions/Handouts: COPD (Chronic Obstructive Pulmonary Disease) (DC), Pneumonia (DC)
== END 2020-02-22 12:15 | disposition home or self-care (01) | DRG 871 ==
LOC: EC 08:59 → 4SSUR 11:05
PROVIDERS: ADMIT Hospitalist; ATTEND Hospitalist
DX: A41.50 Gram-negative sepsis, unspecified (principal); J15.6 Pneumonia due to other Gram-negative bacteria; J44.0 Chronic obstructive pulmonary disease with (acute) lower respiratory infection; Z20.828 Contact with and (suspected) exposure to other viral communicable diseases; E11.9 Type 2 diabetes mellitus without complications; E78.5 Hyperlipidemia, unspecified; G89.29 Other chronic pain; K21.9 Gastro-esophageal reflux disease without esophagitis; M19.91 Primary osteoarthritis, unspecified site; N40.0 Benign prostatic hyperplasia without lower urinary tract symptoms; M54.5 Low back pain; Z79.82 Long term (current) use of aspirin; Z79.899 Other long term (current) drug therapy; Z87.891 Personal history of nicotine dependence; Z88.0 Allergy status to penicillin; Z88.8 Allergy status to other drugs, medicaments and biological substances; Z90.49 Acquired absence of other specified parts of digestive tract
CPT/HCPCS: 36415; 71045; 71046; 80053; 82550; 82728; 83605; 83615; 83735; 84145; 84484; 85025; 85379; 85610; 85730; 86140; 87040; 93005; 94640; 96365; 96367; 99291

== ENCOUNTER → 2020-02-25 | Outpatient (CLI) | payer MEDICARE ==
[2020-02-25 12:35] LABS: Basophils # (A) 0.1 k/uL (0-0.2); Basophils % (A) 1 %; Eosinophils # (A) 0.9 k/uL (0-0.7); Eosinophils % (A) 7 %; HGB 14.2 gm/dL (13.0-17.5); Lymphocytes # (A) 1.7 k/uL (1.0-4.8); Lymphocytes % (A) 13 %; MCH 29.5 pg (25.0-35.0); MCHC 32.2 g/dL (31.0-37.0); MCV 91.8 fL (80.0-100.0); Mean Platelet Volume 7.7; Monocytes # (A) 0.8 k/uL (0-1.0); Monocytes % (A) 6 %; Neutrophils # (A) 9.9 k/uL (1.3-7.7); Neutrophils % (A) 73 %; Platelet Count 501 k/uL (150-450); RBC 4.79 m/uL (4.30-5.90); RDW 12.9 % (11.5-15.5); WBC 13.5 k/uL (3.8-10.6)
[2020-02-25 12:47] LABS: African American GFR (CKD) >90 (>60 ml/min/1.73 sqM); Anion Gap 4 mmol/L; Blood Urea Nitrogen 17 mg/dL (9-20); Carbon Dioxide 31 mmol/L (22-30); Chloride 102 mmol/L (98-107); Glucose 120 mg/dL (74-99); Non-African American GFR(CKD) >90 (>60 ml/min/1.73 sqM); Potassium 4.3 mmol/L (3.5-5.1); Sodium 137 mmol/L (137-145)
--- NOTE | 2020-02-25 13:38 | CT ---
EXAMINATION TYPE: CT angio chest DATE OF EXAM: 02/25/2020 COMPARISON: Chest x-ray 02/21/2020 HISTORY: Shortness of breath and cough. CT DLP: 527.6 mGycm Automated exposure control for dose reduction was used. CONTRAST: CTA scan of the thorax is performed with IV Contrast, patient injected with 100 mL of Isovue 300, pul monary embolism protocol. MIP images are created and reviewed. 3D reconstructed images are created on an independent workstation and reviewed. FINDINGS: LUNGS: The lungs are remarkable for continued airspace disease in the left lower lobe. There is a min imal left pleural effusion. There is a left hilar mass measuring approximately 4.7 cm in greatest tra nsverse dimension, associated prominence of interstitium noted. Emphysematous changes are present wit hin the lungs. AORTA: No additional significant abnormality is seen. For super aortic branch vessels are present. MEDIASTINUM: There is satisfactory enhancement of the pulmonary artery and its branches, there is no CT evidence for pulmonary embolism. There are no greater than 1 cm hilar or mediastinal lymph nodes. Interval pericardial effusion is seen. OTHER: Patient is post cholecystectomy. No evident adrenal mass. IMPRESSION: LEFT HILAR MASS, CONSIDER PULMONARY CONSULT. THERE MAY BE POSTOBSTRUCTIVE CHANGES TO THE LEFT LOWER L OBE, CORRELATE TO EXCLUDE PNEUMONIA. EMPHYSEMA.
== END | disposition home or self-care (01) ==
LOC: RADCTMAIN 11:46
PROVIDERS: ATTEND Family Medicine
DX: R91.8 Other nonspecific abnormal finding of lung field (principal); J18.1 Lobar pneumonia, unspecified organism; Z11.59 Encounter for screening for other viral diseases
CPT/HCPCS: 80048; 85025; 71275; 36415; U0003; Q9967

== ENCOUNTER 2020-03-05 10:39 | Day surgery (SDC) | payer MEDICARE ==
[2020-03-03 11:12] VITALS: BMI 28.8
[~2020-03-05 10:39] MED LIST: ALBUTEROL NEB (CONC) 2.5 MG/0.5 ML INHALATION ONE; LACTATED RINGERS 1,000 ML IV SCH; LIDOCAINE 1% (10MG/ML) FOR IV START INTRADERMA PRN; LIDOCAINE 2% (PF) 20 MG/ML 5 ML VIAL INHALATION ONE; LIDOCAINE VISCOUS 300 MG/15 ML CUP MUCOUS MEM ONE; SODIUM CHLORIDE 0.9% 1,000 ML IV SCH
[2020-03-05 10:58] VITALS: TEMP 97.9
[2020-03-05] MEDS ORDERED: HYDROCORTISONE SUCCINATE 100 MG/2 ML VIAL IVP ONE (11:06)
[2020-03-05] MEDS ORDERED: KETAMINE 10 MG/ML 20 ML VIAL ONE (12:13)
[2020-03-05] MEDS ORDERED: GLYCOPYRROLATE 0.2 MG/ML 2 ML VIAL ONE (12:13)
[2020-03-05] MEDS ORDERED: MIDAZOLAM 2 MG/2 ML VIAL ONE (12:13)
[2020-03-05] MEDS ORDERED: fentaNYL (PF) 50 MCG/ML 2 ML AMP ONE (12:13)
[2020-03-05] MEDS ORDERED: PROPOFOL 10 MG/ML 20 ML VIAL IV ONE (12:13)
[2020-03-05] MEDS ORDERED: LIDOCAINE 2% INJ 20 MG/ML INTRATRACH ONE (12:26)
--- NOTE | 2020-03-05 19:33 | OP ---
OPERATIVE REPORT OPERATIVE REPORT: Bronchoscopy, endobronchial biopsy of the left lower lobe endobronchial tumor, brushings of endobronchial tumor from left lower lobe, and washings of endobronchial tumor involving the anteromedial segment of the left lower lobe. PREOPERATIVE DIAGNOSIS: Left lower lobe mass with postobstructive pneumonitis. POSTOPERATIVE DIAGNOSIS: Left lower lobe mass with postobstructive pneumonitis. ANESTHESIA USED: IV conscious sedation. PROCEDURE DESCRIPTION: The patient was prepared according to the bronchoscopy protocol. Oxygen was applied via nasal cannula. The patient was monitored via pulse oximetry. Cardiac rhythm was continuously monitored. Blood pressure was intermittently monitored. After adequate IV conscious sedation, lidocaine was instilled into the left naris. Then the bronchoscope was advanced through the left naris down to the area of the vocal cords, which were noted to be patent. Lidocaine was applied over the vocal cords. The bronchoscope was advanced further down. A thorough examination was done of the trachea, rick, right upper lobe, right middle lobe, right lower lobe, left upper lobe lingula and left lower lobe. There was no evidence of any endobronchial tumors except when we entered the left lower lobe. I could visualize an endobronchial tumor involving the anteromedial segment of the left lower lobe. It was completely occluding the segment and compressing on the other segments. Multiple endobronchial biopsies were done from the tumor, and brushings and washings were done. Procedure was well tolerated. Blood loss was minimal/negligible. The procedure was well tolerated. No evidence of any immediate complications. MMODL / IJN: [id number] /
[2020-03-06 09:05] VITALS: BP 136/78; PULSE 74; RESP 18
== END 2020-03-05 14:00 | disposition home or self-care (01) ==
LOC: ORWHC2ENDO 10:39
PROVIDERS: ATTEND Internal Medicine
DX: C34.32 Malignant neoplasm of lower lobe, left bronchus or lung (principal); J18.8 Other pneumonia, unspecified organism; J44.9 Chronic obstructive pulmonary disease, unspecified; I10 Essential (primary) hypertension; E11.9 Type 2 diabetes mellitus without complications; E78.5 Hyperlipidemia, unspecified; N40.0 Benign prostatic hyperplasia without lower urinary tract symptoms; Z88.8 Allergy status to other drugs, medicaments and biological substances; Z88.1 Allergy status to other antibiotic agents; Z79.899 Other long term (current) drug therapy; Z79.51 Long term (current) use of inhaled steroids; Z87.01 Personal history of pneumonia (recurrent); Z87.19 Personal history of other diseases of the digestive system; Z87.891 Personal history of nicotine dependence; Z98.890 Other specified postprocedural states; Z90.49 Acquired absence of other specified parts of digestive tract; Z90.89 Acquired absence of other organs; Z80.1 Family history of malignant neoplasm of trachea, bronchus and lung; Z82.49 Family history of ischemic heart disease and other diseases of the circulatory system
CPT/HCPCS: 31625; 31623; 88108; 88104; 88305; 88342; 88341; 87070; 87205; J2001; J2250; J1720; J3010; J2704; 31624

== ENCOUNTER → 2020-03-08 | Outpatient (CLI) | payer MEDICARE ==
--- NOTE | 2020-03-10 06:37 | PE ---
EXAMINATION TYPE: PET CT fusion skull to thigh DATE OF EXAM: 03/08/2020 COMPARISON: CTA chest February 25, 2020. HISTORY: Lung cancer recently diagnosed on biopsy March 05, 2020 left upper lobe TECHNIQUE: Following the intravenous administration of 13.79 mCi of F-18 FDG, whole body images are performed from the skull base to the midthigh. Images are reviewed on the computer in the coronal, a xial, and sagittal planes. Reconstructed rotating images are created on independent workstation and reviewed on the computer. A noncontrast CT is performed in conjunction with the PET scan. SCAN: Initial Scan FINDINGS: SKULL BASE AND NECK: No areas of suspicious abnormal hypermetabolic uptake. CHEST, MEDIASTINUM, AND HILAR REGION: Background moderate to advanced underlying emphysematous change is redemonstrated. Redemonstration of lobulated left infrahilar mass measuring 4.0 x 4.0 cm axial image 118 that is hype rmetabolic, max SUV 5.7. Areas of groundglass opacity consolidation extend from this mass to the kaushal pheral lung base, some hypermetabolic uptake is present. Max SUV 4.48 axial image 125. Some left-side d volume loss redemonstrated. Trace left pleural effusion fluid collection redemonstrated and is amet abolic. No areas of abnormal hypermetabolic uptake in the right lung. No suspicious thoracic hypermetabolic a denopathy. ABDOMEN AND PELVIS: No areas of abnormal hypermetabolic uptake. No suspicious adrenal masses. OSSEOUS STRUCTURES: No areas of suspicious hypermetabolic uptake. OTHER CT: Cholecystectomy clips. Enlarged prostate gland consistent with BPH. Scoliotic curvature in the spine. Multilevel spurring in the spine is seen. Facet arthropathy lower l umbar levels. Mild calcified plaque of the aorta extends into branch vessels. IMPRESSION: Confirmation of known left infrahilar mass or neoplasm with postobstructive atelectasis a nd volume loss. Additional areas of neoplasm in the periphery of the left lung base suspected with ar eas of hypermetabolic uptake noted. No suspicious thoracic adenopathy or metastatic malignancy.
== END | disposition home or self-care (01) ==
LOC: RADPETMAIN 07:18
PROVIDERS: ATTEND Internal Medicine
DX: J98.11 Atelectasis (principal); D49.1 Neoplasm of unspecified behavior of respiratory system
CPT/HCPCS: 78815; A9552

== ENCOUNTER → 2020-03-10 | Outpatient (CLI) | payer MEDICARE | END | disposition home or self-care (01) | CPT/HCPCS: 94060; 94726; 94729 ==

== ENCOUNTER → 2020-03-17 | Outpatient (CLI) | payer MEDICARE | END | disposition home or self-care (01) | LOC: LABPAT 09:59 | PROVIDERS: ATTEND Internal Medicine | DX: Z01.818 Encounter for other preprocedural examination (principal); C34.90 Malignant neoplasm of unspecified part of unspecified bronchus or lung; U07.1 COVID-19 | CPT/HCPCS: U0003; C9803 ==

== ENCOUNTER 2020-03-20 05:44 | Inpatient (IN) | payer MEDICARE ==
[~2020-03-20 05:44] MED LIST changes: -ALBUTEROL NEB (CONC) 2.5 MG/0.5 ML INHALATION ONE; +DEXAMETHASONE SOD PHOSPHATE 10 MG/ML 1 ML VIAL IV ONE; +HYDROmorphone 0.5 MG/0.5 ML SYRINGE IVP PRN; -LIDOCAINE 2% (PF) 20 MG/ML 5 ML VIAL INHALATION ONE; -LIDOCAINE VISCOUS 300 MG/15 ML CUP MUCOUS MEM ONE; +MIDAZOLAM 2 MG/2 ML VIAL IV PRN; +ONDANSETRON 4 MG/2 ML VIAL IVP ONE; -SODIUM CHLORIDE 0.9% 1,000 ML IV SCH; +fentaNYL (PF) 50 MCG/ML 2 ML AMP IVP PRN
[2020-03-20] MEDS ORDERED: ONDANSETRON 4 MG/2 ML VIAL ONE (06:41)
[2020-03-20] MEDS ORDERED: BUPIVACAINE (PF) 0.5% 30 ML VIAL SQ ONE ×4 (08:22→10:30)
[2020-03-20] MEDS ORDERED: LACTATED RINGERS 1,000 ML IV ONE (10:16)
--- NOTE | 2020-03-20 11:02 | P.OP ---
Date of Procedure: 03/20/20 Preoperative Diagnosis: Adenocarcinoma left lower lobe lung Postoperative Diagnosis: Same Procedure(s) Performed: Robotic-assisted thoracoscopic left lower lobectomy with mediastinal lymph node dissection Anesthesia: JOSHUA Surgeon: Robin Hernández Cardiac Technician #1: Demian Whiting Estimated Blood Loss (ml): 20 IV fluids (ml): 1,000 Urine output (ml): 150 Pathology: other (Left lower lobe for frozen section of the bronchial margin and permanent section; lymph node stations L6, level 7, L8, L9, L 10, L 11 all for permanent section, left pleural fluid for cytology) Indications for Procedure: 74-year-old male presents with obstructing tumor in the left lower lobe bronchus. Bronchoscopy demonstrated adenocarcinoma consistent with lung primary. PET scan showed uptake in the lower lobe of the lung but no uptake in the mediastinum or pleura and no evidence of distant metastasis. Pulmonary function testing was adequate for lung surgery and the lobectomy. Elective lobectomy was planned for early stage lung carcinoma. Operative Findings: Pleural space was free of adhesions. There was a small amount of serous fluid present. There was a diffuse inflammatory process involving the left lower lobe likely related to the obstructing pneumonia. There was marketed mediastinal and hilar adenopathy consistent with the inflammatory process. Was a central lower lobe tumor about 4 cm in diameter with associated obstructing pulmonary consolidation distally. Frozen section of the bronchial margin was negative. Description of Procedure: The patient was brought to the operating room, placed supine on the operating table, anesthetized and intubated with a double-lumen endotracheal tube. Tube was positioned with fiberoptic bronchoscopy and secured. Patient was turned in the right lateral decubitus position and the left chest sterilely prepped and draped. Patient was appropriately positioned for robotic lobectomy. Single lung ventilation was initiated. Initial incision was made in the eighth inte rspace in the anterior axillary line and an 8 mm robotic port was placed here. 12 mm ports were placed 10 cm anterior and posterior to this port. A second 8 mm port was placed posteriorly at the level of the superior segment of the left lower lobe. The robot was now docked. Working port was placed in the posterior axillary line at the level of the diaphragm. On exploring the chest the pleural effusion was noted. This was suctioned free and collected and sent for cytology. The inferior pulmonary ligament was taken down. Enlarged level IX and level VIII lymph nodes were noted and were resected. Dissection was carried up the inferior pulmonary ligament to the inferior pulmonary vein. We continued dissection posteriorly to the level of the bronchus. L 10 lymph nodes were resected encircling the left mainstem bronchus in the hilum. Dissection was carried into the mediastinum and the level VII lymph nodes were resected. Dissection was then carried superiorly in the mediastinum and the level nodes were resected. Dissection was carried onto the pulmonary artery and the superior segmental branch of the pulmonary artery leading to the superior segment of the left lower lobe was encircled. Level XI lymph nodes in this area were resected. Once we encircled the superior segmental branch of the pulmonary artery it was ligated and divided with a robotic stapler. We now continued our dissection along the mainstem bronchus and identified the bifurcation the mainstem bronchus to the upper and lower lobes. The lower lobe bronchus was dissected free of L 11 lymph nodes posteriorly. We now transitioned our dissection anteriorly. The pleura was further mobilized to this. Her pulmonary vein. We encircled the inferior pulmonary vein and ligated and divided it with a robotic stapler. Dissection was now carried onto the bronchus and the bifurcation of the mainstem bronchus to the upper and lower lobes was identified anteriorly. This allowed us to encircle the lower lobe bronchus at the level of its takeoff from the mainstem bronchus. Further L 11 lymph nodes were resected in this region. Once we had encircled the bronchus safely it was ligated and divided with a robotic green stapler. We now carried the dissection onto the inferior portion of the pulmonary artery. Further L 11 lymph nodes were resected. We identified the branches leading to the lingula and encircled the pulmonary artery just distal to this. The distal pulmonary artery was ligated and divided with a robotic vascular stapler. We now completed the fissure between the upper and lower lobes with multiple firings of the robotic green stapler. Lobectomy specimen was placed in an Endo Catch bag. The hilum was now noted to be free of lymph jacqueline tissue. Staple lines all appeared intact and hemostasis was good. The robot was undocked and the working port incision was enlarged. Lobectomy specimen was brought out from the chest through the enlarged working port incision in the Endo Catch bag. It was examined on the back table and sent for frozen section of the bronchial margin which returned negative. The chest was irrigated with warm water and no significant air leaks were noted. 28-Serbian chest tube was placed through the anteriormost incision and positioned posterior apically. The lung was inflated under robotic visualization. Incisions were closed with layers of Vicryl suture. Rib blocks were performed at the level of the incisions with half percent Marcaine. Skin glue and dry sterile dressings were applied to the incisions chest tube was secured with an 0 Ethibond suture and connected to a Pleur-evac. Patient was turned supine and extubated and transferred to recovery in stable condition.
[2020-03-20 11:16] LABS: Glucose,Whole Blood 179 mg/dL (75-99)
--- NOTE | 2020-03-20 11:35 | XR ---
EXAMINATION TYPE: XR chest 1V portable DATE OF EXAM: 03/20/2020 COMPARISON: Prior chest x-ray 02/21/2020 HISTORY: Status post lobectomy TECHNIQUE: Single frontal view of the chest is obtained. FINDINGS: Interval placement of left-sided chest tube, volume loss present in left hemithorax. There is a small left apical pneumothorax, some subsegmental atelectatic changes are present at the left l vadim base. No evident effusion. No other significant interval change. IMPRESSION: Post lobectomy changes on the left.
[2020-03-20 12:27] LABS: Glucose,Whole Blood 162 mg/dL (75-99)
[2020-03-20] MEDS ORDERED: ONDANSETRON 4 MG/2 ML VIAL IVP PRN (12:57)
[2020-03-20] MEDS ORDERED: DEXTROSE 5%-0.45% NACL 1,000 ML IV SCH (12:57)
[2020-03-20] MEDS ORDERED: ACETAMINOPHEN TAB 500 MG TAB PO PRN (12:57)
[2020-03-20] MEDS ORDERED: IPRATROPIUM-ALBUTEROL 3 ML NEB IH PRN (12:57)
[2020-03-20] MEDS: traMADol 50 MG TAB PO SCH ×2 (13:11→18:04)
[2020-03-20] MEDS: KETOROLAC 30 MG/ML 1 ML VIAL IVP SCH ×2 (13:12→18:09)
[2020-03-20] MEDS ORDERED: LACTATED RINGERS 1,000 ML IV SCH (13:15)
[2020-03-20] MEDS: HEPARIN SODIUM,PORCINE 5,000 UNIT/ML 1 ML VIAL SQ SCH (15:53)
[2020-03-20] MEDS: IPRATROPIUM-ALBUTEROL 3 ML NEB IH SCH ×3 (16:18→19:59)
[2020-03-20 16:27] LABS: Glucose,Whole Blood 144 mg/dL (75-99)
[2020-03-20] MEDS: INSULIN ASPART (NovoLOG) 100 UNIT/ML VIAL SQ SCH ×2 (17:47→21:30)
--- NOTE | 2020-03-20 18:06 | CONS ---
CONSULTATION PULMONARY/CRITICAL CARE CONSULTATION: DATE OF SERVICE: 03/20/2020 This is a 74-year-old gentleman who underwent a robotically assisted thoracoscopic left lower lobectomy with mediastinal lymph node dissection. The surgery was done by Dr. Hernández. Today is postoperative day number zero. The patient is currently resting comfortably in the ICU. He has a basic IV of saline at 20 mL/hour and 2 L nasal cannula. He does have a persistent leak from that left-sided chest tube. The patient was initially seen by Dr. Torres. The actual bronchoscopy was also done by Dr. Torres. He did a bronchoscopy and biopsy of the left lower lobe which came back positive for [id number] lung cancer, consistent with adenocarcinoma. The patient was initially seen in early February. Dr. Torres evaluated the patient and was impressed with the patient's CT scan which showed a lesion in the left lower lobe. A PET scan was ordered and a bronchoscopy was performed. Subsequent to that, the patient went for surgery today as mentioned above. The patient does have a history of pneumonia, COPD, asthma, type 2 diabetes mellitus, hyperlipidemia, essential hypertension and cholecystitis. FAMILY HISTORY: Positive for father with tumor of the lung and mother with heart failure. SOCIAL HISTORY: Positive for previous tobacco use. No illicit drug use. No significant alcohol use. SURGICAL HISTORY: Surgical history includes laparoscopy, sigmoidoscopy, colonoscopy, cholecystectomy and tonsillectomy. ALLERGIES: ALLERGIES include LIPITOR and PENICILLIN. MEDICATIONS: Medications included atenolol, finasteride, Flomax, lisinopril, ProAir and Crestor. Vaccinations are up to date. OCCUPATIONAL HISTORY: Noncontributory. Primary care physician was Dr. Painter. CT scan of the chest revealed a 4.7 cm lesion in the left hilum with some postobstructive pneumonitis. PAST MEDICAL HISTORY: Past medical history includes pneumonia, COPD, asthma, type 2 diabetes, hyperlipidemia, essential hypertension and cholecystitis. Family history as mentioned above. Surgical history includes laparoscopy, sigmoidoscopy, colonoscopy, cholecystectomy and tonsillectomy. Allergies as mentioned. REVIEW OF SYSTEMS: CONSTITUTIONAL: Negative. NEUROLOGIC: Negative. HEENT: Negative. CARDIOVASCULAR: Negative. PULMONARY: Mild shortness of breath. Chest pain at the surgical site. GI: Negative. : Negative. RHEUMATOLOGIC: Negative. IMMUNOLOGIC: Negative. ENDOCRINOLOGIC: Negative. DERMATOLOGIC: Negative. PHYSICAL EXAMINATION: VITAL SIGNS: Current vital signs are reviewed. Temperature is 97.7, heart rate 64, respiratory rate 16, blood pressure 131/61, 2-liter saturation 97%. GENERAL APPEARANCE: Appears in no acute distress HEENT: Examination is grossly unremarkable. NECK: Supple. Full range of motion. No adenopathy. Neck veins are flat. CARDIOVASCULAR: Examination reveals regular rhythm and rate. S1, S2 normal. Heart rate is about 65 beats per minute. LUNGS: Lungs reveal diminished breath sounds on the left side. Right chest sounds are relatively clear, although there are a few scattered rhonchi. More rhonchi on the left. Chest tube is noted on the left. ABDOMEN: Soft. Bowel sounds are not noted. EXTREMITIES: Intact. No cyanosis, clubbing or edema. SKIN: Without rash. NEUROLOGIC: Neurologic examination is brief but nonfocal. LABS: Reviewed. Nothing of note. Chest x-ray done postsurgically reveals post-lobectomy changes on the left. There is a left-sided chest tube. There is a small left apical pneumothorax. ASSESSMENT: 1. Postoperative day number zero, status post left lower lobectomy with lymph node dissection which was done robotically. 2. History of chronic obstructive pulmonary disease. 3. Postobstructive pneumonia. 4. History of type 2 diabetes mellitus. 5. Hyperlipidemia. 6. Essential hypertension. 7. Cholecystitis. PLAN: The patient's bronchoscopy and transbronchial biopsy done by Dr. Torres revealed evidence of [id number] lung cancer, consistent with adenocarcinoma. Results of the PET scan done on March 10 showed confirmation of the known left infrahilar mass with postobstructive atelectasis and volume loss. Additional areas of neoplasm in the periphery of the left lung suspected with areas of hypermetabolic uptake noted. There was no suspicious thoracic adenopathy or metastatic malignancy. Will watch the patient carefully in the ICU. He does have an air leak at the current time. No additional recommendations are made. Hemodynamically and respiratory-dawson, the patient is very stable. I did have a chance to speak to the patient, examine the patient and speak to the patient's . He also wanted to see where the chest tube was on the x-ray. We did show him that. No additional recommendations are made. Will follow. Prognosis guarded. MMODL / IJN: [id number] /
[2020-03-20] MEDS: SYMBICORT 80-4.5 MCG INHALER INHALATION SCH (19:59)
[2020-03-20 20:21] LABS: Glucose,Whole Blood 203 mg/dL (75-99)
[2020-03-20] MEDS: TAMSULOSIN 0.4 MG CAP.ER.24H PO SCH (20:38)
[2020-03-21 00:24] LABS: Glucose,Whole Blood 158 mg/dL (75-99)
[2020-03-21] MEDS: traMADol 50 MG TAB PO SCH ×5 (00:24→23:04)
[2020-03-21] MEDS: HEPARIN SODIUM,PORCINE 5,000 UNIT/ML 1 ML VIAL SQ SCH ×4 (00:24→23:13)
[2020-03-21] MEDS: KETOROLAC 30 MG/ML 1 ML VIAL IVP SCH ×5 (00:25→23:04)
[2020-03-21 06:23] LABS: Glucose,Whole Blood 117 mg/dL (75-99)
[2020-03-21] MEDS: INSULIN ASPART (NovoLOG) 100 UNIT/ML VIAL SQ SCH ×4 (06:23→20:24)
[2020-03-21 07:20] LABS: Basophils # (A) 0.1 k/uL (0-0.2); Basophils % (A) 1 %; Eosinophils # (A) 0.4 k/uL (0-0.7); Eosinophils % (A) 5 %; HCT 42.1 % (39.0-53.0); HGB 13.2 gm/dL (13.0-17.5); Lymphocytes # (A) 1.6 k/uL (1.0-4.8); Lymphocytes % (A) 18 %; MCH 28.9 pg (25.0-35.0); MCHC 31.5 g/dL (31.0-37.0); MCV 91.8 fL (80.0-100.0); Mean Platelet Volume 7.1; Monocytes # (A) 0.8 k/uL (0-1.0); Monocytes % (A) 9 %; Neutrophils # (A) 5.8 k/uL (1.3-7.7); Neutrophils % (A) 67 %; Platelet Count 313 k/uL (150-450); RBC 4.58 m/uL (4.30-5.90); RDW 13.1 % (11.5-15.5); WBC 8.8 k/uL (3.8-10.6)
[2020-03-21 07:37] LABS: Calcium 8.6 mg/dL (8.4-10.2); Potassium 4.2 mmol/L (3.5-5.1)
--- NOTE | 2020-03-21 07:38 | XR ---
EXAMINATION TYPE: XR chest 1V DATE OF EXAM: 03/21/2020 HISTORY: Status post lobectomy. COMPARISON: 03/20/2020 TECHNIQUE: Single view of the chest is submitted. FINDINGS: Left-sided chest tube remains in place. Less than 10% left apical pneumothorax is unchanged. Small am ount of subcutaneous air noted. There is no evidence for focal infiltrate. The heart is stable. Hilar and mediastinal structures are within normal limits. Degenerative changes are seen of the dorsal spine. IMPRESSION: 1. Left-sided chest tube remains in place. Less than 10% left apical pneumothorax is unchanged.
[2020-03-21] MEDS: IPRATROPIUM-ALBUTEROL 3 ML NEB IH SCH ×4 (07:46→19:24)
[2020-03-21] MEDS: SYMBICORT 80-4.5 MCG INHALER INHALATION SCH ×2 (07:46→19:25)
--- NOTE | 2020-03-21 09:24 | P.PN ---
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 Previous medical history of COPD, diet controlled type 2 diabetes, GERD, osteoarthritis, hyperlipidemia, BPH, choleysystitis with choleycystectomy, and chronic low back pain. POD #1 Robotic-assisted thoracoscopic left lower lobectomy with mediastinal lymph node dissection Patient seen and examined up on cardiac stepdown sitting up in chair following breakfast in no acute distress. He denies any pain, shortness of breath or difficulty breathing. Left chest tube present. Objective - Vital Signs Vital signs: Vital Signs Temp 98.2 F 03/21/20 08:00 Pulse 72 03/21/20 08:01 Resp 18 03/21/20 08:00 BP 117/68 03/21/20 08:00 Pulse Ox 92 L 03/21/20 08:00 Intake & Output 03/20/20 03/21/20 03/21/20 18:59 06:59 18:59 Intake Total 1650 650 Output Total 530 640 100 Balance 1120 10 -100 Weight 99.2 kg Intake: IV 1650 650 Lactated Ringers 1,000 ml 200 600 @ 50 mls/hr IV .Q20H [facility] Rx#:[id number] ceFAZolin 2 gm In Sodium 100 50 Chloride 0.9% 50 ml @ 100 mls/hr IVPB ONCE ONE Rx# :[id number] Output: Chest Tube Drainage 120 100 Chest Tube Left 120 100 Drainage 120 20 Left Chest 120 20 Urine 390 500 Estimated Blood Loss 20 Other: Voiding Method Indwelling Catheter Indwelling Catheter Indwelling Catheter - Constitutional General appearance: Present: cooperative, no acute distress - Respiratory Details: Lungs clear to auscultation on the right, course crackles on the left side. Patient is in no acute distress. Respirations equal and regular. Left sided chest tube in place with steady air leak attached to wall suction, 600 mL serosanguinous output since surgery. 1500 mL on incentive spirometry. - Cardiovascular Details: S1 and S2 auscultated. No clicks, murmurs, rubs. Normal sinus rhythm on the monitor rate 70. SCDs and ATIF hose intact. - Gastrointestinal Gastrointestinal Comment(s): Bowel sounds present, soft, non-distended. No tenderness, guarding. - Genitourinary Genitourinary Comment(s): Duenas catheter in place draining clear, yellow urine. 500 mL out in last 12 hours. - Integumentary Integumentary Comment(s): Dressing over chest tube site is clean, dry and intact. - Neurologic Neurologic: Present: CNII-XII intact - Musculoskeletal Musculoskeletal: Present: gait normal, strength equal bilaterally - Psychiatric Psychiatric: Present: A&O x's 3 - Labs CBC & Chem 7: 03/21/20 06:36 03/21/20 06:36 Labs: Abnormal Lab Results - Last 24 Hours (Table) 03/20/20 03/20/20 03/20/20 Range/Units 11:14 12:26 16:24 Sodium (137-145) mmol/L Glucose (74-99) mg/dL POC Glucose (mg/dL) 179 H 162 H 144 H (75-99) mg/dL 03/20/20 03/21/20 03/21/20 Range/Units 20:20 00:23 06:23 Sodium (137-145) mmol/L Glucose (74-99) mg/dL POC Glucose (mg/dL) 203 H 158 H 117 H (75-99) mg/dL 03/21/20 Range/Units 06:36 Sodium 135 L (137-145) mmol/L Glucose 115 H (74-99) mg/dL POC Glucose (mg/dL) (75-99) mg/dL - Imaging and Cardiology Chest x-ray: report reviewed, image reviewed Assessment and Plan Assessment: 1. 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 History of COPD, FEV1 of 1.9, 50% of predicted 3. History of diet controlled type 2 diabetes 4. History of GERD 5. History of hyperlipidemia 6. History of osteoarthritis 7. History of BPH 8. History of chronic low back pain. 9. History of smoking, quit 20 years ago but had a 30-pack/year history prior to that. Plan: 1. Continue chest tube to wall suction, will reassess changing it to water seal in next 12-24 hours if leak subsides. Will review daily CXR 2. Wean oxygen as tolerated. Continue use of incentive spirometry 10x hour while awake. 3. Bronchodilators per pulmonary management team. 4. Discontinue duenas catheter. Continue to monitor I&Os. 5. Discontinue IV fluids. 6. Continue sliding-scale insulin for blood glucose coverage. 7. Continue Tramadol and Toradol for pain management. 8. Continue ASA, Atenolol, Lisinopril and Crestor. 9. Continue Finasteride and Flomax. 10. Continue GI/DVT prophylaxis. 11. Further recommendations to follow based on patient's clinical course. Time with Patient: Greater than 30 <Peter Givens - Last Filed: 03/21/20 14:26> Objective - Vital Signs Vital signs: Vital Signs Temp 98.0 F 03/21/20 12:00 Pulse 81 03/21/20 12:00 Resp 18 03/21/20 12:00 BP 94/53 03/21/20 12:00 Pulse Ox 93 L 03/21/20 12:00 Intake & Output 03/20/20 03/21/20 03/21/20 18:59 06:59 18:59 Intake Total 1650 650 120 Output Total 530 640 100 Balance 1120 10 20 Weight 99.2 kg Intake: IV 1650 650 Lactated Ringers 1,000 ml 200 600 @ 50 mls/hr IV .Q20H [facility] Rx#:[id number] ceFAZolin 2 gm In Sodium 100 50 Chloride 0.9% 50 ml @ 100 mls/hr IVPB ONCE ONE Rx# :[id number] Oral 120 Output: Chest Tube Drainage 120 100 Chest Tube Left 120 100 Drainage 120 20 Left Chest 120 20 Urine 390 500 Estimated Blood Loss 20 Other: Voiding Method Indwelling Catheter Indwelling Catheter Indwelling Catheter - Labs CBC & Chem 7: 03/21/20 06:36 03/21/20 06:36 Labs: Abnormal Lab Results - Last 24 Hours (Table) 03/20/20 03/20/20 03/21/20 Range/Units 16:24 20:20 00:23 Sodium (137-145) mmol/L Glucose (74-99) mg/dL POC Glucose (mg/dL) 144 H 203 H 158 H (75-99) mg/dL 03/21/20 03/21/20 03/21/20 Range/Units 06:23 06:36 11:47 Sodium 135 L (137-145) mmol/L Glucose 115 H (74-99) mg/dL POC Glucose (mg/dL) 117 H 126 H (75-99) mg/dL
[2020-03-21] MEDS: TAMSULOSIN 0.4 MG CAP.ER.24H PO SCH ×2 (10:01→20:23)
[2020-03-21] MEDS: atenoloL 50 MG TAB PO SCH (10:02)
[2020-03-21] MEDS: FINASTERIDE 5 MG TAB PO SCH (10:02)
[2020-03-21] MEDS: ASPIRIN 81 MG PO SCH (10:02)
[2020-03-21 11:48] LABS: Glucose,Whole Blood 126 mg/dL (75-99)
--- NOTE | 2020-03-21 14:54 | PN ---
PROGRESS NOTE PULMONARY/CRITICAL CARE PROGRESS NOTE: DATE OF SERVICE: 03/21/2020 This is a very pleasant 74-year-old male who I met yesterday and did a consultation on. He is status post robotically assisted thoracoscopic left lower lobectomy with mediastinal lymph node dissection for non-small cell lung cancer. The cancer was actually diagnosed by my partner, Dr. Torres. Currently, he is doing well. He is on a couple L of O2. He still has an intermittent leak of his left-sided chest tube. Other than that, the patient is doing reasonably well. The patient is with his today. He denies particular complaints other than pain at the surgical site. MEDICAL HISTORY: Positive for pneumonia, COPD, asthma, diabetes, hyperlipidemia, hypertension, and cholecystitis. Current vital signs are reviewed, temperature 98, heart rate 81, respiratory rate 18, blood pressure 94/53 mean 66, 2 L saturation 93%. Appears in no acute distress. HEENT: Examination is grossly unremarkable. Mucous membranes are moist. No oral lesions. NECK: Supple. Full range of motion. No adenopathy or thyromegaly. Neck veins are flat. CARDIOVASCULAR: Examination reveals regular rhythm and rate. Heart rate mid 70s. S1, S2 normal. No S3, S4, or murmur. LUNGS: Reveal diminished breath sounds on the left side. There is no subcutaneous emphysema. Right lung is clear of adventitious lung sounds. A few scattered rhonchi on the left. Chest tube seems to be in good position. ABDOMEN: Soft, bowel sounds are heard. There is no masses or tenderness. EXTREMITIES: Intact. No cyanosis, clubbing, or edema. SKIN: Without rash. NEUROLOGIC: Examination is brief but nonfocal. LABS: Reviewed. CBC is normal. White count 8.8, hemoglobin 13.2, hematocrit 42.1, platelet count 313,000 sodium 135, potassium 4.2, chloride 100, CO2 is 29, anion gap is 6. BUN and creatinine were 19 and 1.01. A chest x-ray today shows a left-sided chest tube that remains in place and a very small left apical pneumothorax. ASSESSMENT: 1. Postoperative day #1, status post robotically assisted thoracoscopic left lower lobectomy for non-small cell lung cancer, consistent with adenocarcinoma. 2. History of chronic obstructive pulmonary disease. 3. Postobstructive pneumonia. 4. History of type 2 diabetes mellitus. 5. Hyperlipidemia. 6. Essential hypertension. 7. History of cholecystitis. PLAN: Currently, the patient seems to be doing relatively well. We will continue to follow. He still has an air leak from the left chest tube. Additional recommendations and suggestions are forthcoming. We recommend deep breathing, coughing, clearing of secretions as well as hourly use of incentive spirometer. No additional recommendations are made. Prognosis is guarded. Pathology is pending. MMODL / IJN: [id number] /
[2020-03-21 16:43] LABS: Glucose,Whole Blood 128 mg/dL (75-99)
[2020-03-21 19:54] LABS: Glucose,Whole Blood 180 mg/dL (75-99)
[2020-03-22 05:55] LABS: HCT 37.5 % (39.0-53.0); HGB 12.3 gm/dL (13.0-17.5); MCHC 32.9 g/dL (31.0-37.0); MCV 91.1 fL (80.0-100.0); Mean Platelet Volume 7.1; Platelet Count 296 k/uL (150-450); RBC 4.11 m/uL (4.30-5.90); RDW 13.1 % (11.5-15.5); WBC 9.7 k/uL (3.8-10.6)
[2020-03-22] MEDS: traMADol 50 MG TAB PO SCH (05:57)
[2020-03-22] MEDS: KETOROLAC 30 MG/ML 1 ML VIAL IVP SCH (05:58)
[2020-03-22 06:09] LABS: Calcium 8.4 mg/dL (8.4-10.2); Potassium 4.7 mmol/L (3.5-5.1)
[2020-03-22 06:38] LABS: Glucose,Whole Blood 138 mg/dL (75-99)
[2020-03-22] MEDS: INSULIN ASPART (NovoLOG) 100 UNIT/ML VIAL SQ SCH ×4 (06:41→21:25)
--- NOTE | 2020-03-22 07:01 | XR ---
EXAMINATION TYPE: XR chest 1V portable DATE OF EXAM: 03/22/2020 HISTORY: post lobectomy. REFERENCE: Study dated 03/21/2020. FINDINGS: A left pleural drain remains in place. There is a small, less than 10% pneumothorax on the left. There is bibasilar atelectasis. There is blunting of both CP angles. I could not exclude small effusi ons. The heart is minimally prominent. IMPRESSION: TINY, RESIDUAL LEFT APICAL PNEUMOTHORAX.
[2020-03-22] MEDS: SYMBICORT 80-4.5 MCG INHALER INHALATION SCH ×2 (08:03→20:49)
[2020-03-22] MEDS: IPRATROPIUM-ALBUTEROL 3 ML NEB IH SCH ×4 (08:03→20:49)
--- NOTE | 2020-03-22 08:28 | P.PN ---
Subjective Progress Note Date: 03/22/20 Principal diagnosis: Adenocarcinoma left lower lobe lung. Previous medical history of COPD, postobstructive pneumonia, diet controlled type 2 diabetes, GERD, osteoarthritis, hyperlipidemia, hypertension, BPH, choleysystitis S/P choleycystectomy, and chronic low back pain. POD #2 Robotic-assisted thoracoscopic left lower lobectomy with mediastinal lymph node dissection Postoperative persistent air leak, expected The patient is currently sitting up in the recliner on the cardiac stepdown unit in no acute distress. States pain is controlled on current medication regimen, denies shortness of breath. Left pleural chest tube remains to continuous wall suction with air leak present, less than yesterday. Patient did ambulate in the hallway 3 times yesterday off suction without any difficulty. Chest x-ray reviewed this morning, remains unchanged. Objective - Vital Signs Vital signs: Vital Signs Temp 98.8 F 03/22/20 04:00 Pulse 66 03/22/20 04:00 Resp 18 03/22/20 04:00 BP 118/70 03/22/20 04:00 Pulse Ox 97 03/22/20 04:00 Intake & Output 03/21/20 03/22/20 03/22/20 18:59 06:59 18:59 Intake Total 360 240 Output Total 300 200 Balance 60 40 Weight 99.9 kg Intake: Oral 360 240 Output: Chest Tube Drainage 300 200 Chest Tube Left 300 200 Other: Voiding Method Indwelling Catheter # Voids 3 1 - Constitutional General appearance: Present: cooperative, no acute distress - Respiratory Details: Lungs sounds diminished bilaterally. Respirations even and nonlabored. Currently on 2 L nasal cannula with oxygen saturation 97%. Able to achieve 1500 mL on his incentive spirometry. Left pleural chest tube present continuous wall suction, 150 mL serosanguineous drainage overnight, 450 mL the last 24 hours, air leak present. - Cardiovascular Details: S1, S2 present. Regular rate and rhythm, sinus rhythm on telemetry. Palpable peripheral pulses bilaterally. No edema present. No calf pain or tenderness noted. - Gastrointestinal Gastrointestinal Comment(s): Abdomen soft, nontender, nondistended. Active bowel sounds present 4 quadrants. Tolerating diet. - Genitourinary Genitourinary Comment(s): Shaikh discontinued yesterday morning, continues to void clear, yellow urine - Integumentary Integumentary Comment(s): Skin is warm and dry with evidence of good perfusion. - Neurologic Neurologic: Present: CNII-XII intact - Musculoskeletal Musculoskeletal: Present: gait normal, strength equal bilaterally - Psychiatric Psychiatric: Present: A&O x's 3, appropriate affect, intact judgment & insight - Allied health notes Allied health notes reviewed: nursing - Labs CBC & Chem 7: 03/22/20 05:25 03/22/20 05:25 Labs: Abnormal Lab Results - Last 24 Hours (Table) 03/21/20 03/21/20 03/21/20 Range/Units 11:47 16:42 19:49 RBC (4.30-5.90) m/uL Hgb (13.0-17.5) gm/dL Hct (39.0-53.0) % Sodium (137-145) mmol/L BUN (9-20) mg/dL Glucose (74-99) mg/dL POC Glucose (mg/dL) 126 H 128 H 180 H (75-99) mg/dL 03/22/20 03/22/20 03/22/20 Range/Units 05:25 05:25 06:36 RBC 4.11 L (4.30-5.90) m/uL Hgb 12.3 L (13.0-17.5) gm/dL Hct 37.5 L (39.0-53.0) % Sodium 133 L (137-145) mmol/L BUN 29 H (9-20) mg/dL Glucose 112 H (74-99) mg/dL POC Glucose (mg/dL) 138 H (75-99) mg/dL - Imaging and Cardiology Chest x-ray: report reviewed, image reviewed Assessment and Plan Assessment: 1. Adenocarcinoma left lower lobe of the lung, S/P robatic assisted left lower l obectomy with mediastinal lymph node dissection 2. Previous tobacco dependence 3. History of COPD, FEV1 of 1.9, 50% of predicted 4. History of postobstructive pneumonia 5. History of diet controlled type 2 diabetes 6. History of GERD 7. History of hyperlipidemia 8. History of hypertension 9. History of osteoarthritis 10. History of BPH 11. History of chronic low back pain. 12. Postoperative persistent air leak Plan: 1. Chest tube placed to waterseal, repeat chest x-ray at 11 AM. If stable will leave chest tube to waterseal 2. Wean oxygen as tolerated. Continue use of incentive spirometry 10x hour while awake. 3. Bronchodilators per pulmonary 4. Increase activity, ambulate in hallway 5. Pain management per current medication regimen 6. Continue home meds 7. GI/DVT prophylaxis 8. Will monitor daily labs and x-rays 9. More recommendations to follow Time with Patient: Greater than 30
[2020-03-22] MEDS: FINASTERIDE 5 MG TAB PO SCH (08:42)
[2020-03-22] MEDS: HEPARIN SODIUM,PORCINE 5,000 UNIT/ML 1 ML VIAL SQ SCH ×2 (08:42→17:56)
[2020-03-22] MEDS: TAMSULOSIN 0.4 MG CAP.ER.24H PO SCH ×2 (08:42→19:45)
[2020-03-22] MEDS: atenoloL 50 MG TAB PO SCH (08:42)
[2020-03-22] MEDS: ASPIRIN 81 MG PO SCH (08:42)
--- NOTE | 2020-03-22 10:26 | P.PN ---
Subjective Progress Note Date: 03/22/20 Principal diagnosis: Adenocarcinoma of the left lower lobe This is a very pleasant 74-year-old gentleman who follows with Dr. Painter as his primary care provider. He also follows with Dr. Torres in our office and was found to have adenocarcinoma of the left lower lobe. He was admitted on 03/20/2020 for an elective robotic-assisted thoracoscopic left lower lobectomy with mediastinal lymph node dissection. He is seen today in follow-up on the selective care unit. He is currently sitting up in a chair at the bedside. He is awake and alert in no acute distress. No worsening shortness of breath, cough or congestion. Left-sided chest tube remains in place. There is still a positive air leak. [facility] to [facility]. Today's chest x-ray reveals a tiny residual left apical pneumothorax. He is maintaining good O2 saturations in the 90s on 2 L/m per nasal cannula. He is working well with the incentive spirometer. He is afebrile. Hemodynamically stable. White count 9.7. Hemoglobin 12.3. Serum 133. Potassium 4.7. Creatinine 1.20. He is continued on DuoNeb inhalations, Symbicort. Heparin for DVT prophylaxis. Objective - Vital Signs Vital signs: Vital Signs Temp 98.2 F 03/22/20 08:00 Pulse 76 03/22/20 08:19 Resp 18 03/22/20 08:00 BP 112/59 03/22/20 08:00 Pulse Ox 93 L 03/22/20 08:00 Intake & Output 03/21/20 03/22/20 03/22/20 18:59 06:59 18:59 Intake Total 360 240 240 Output Total 300 200 Balance 60 40 240 Weight 99.9 kg Intake: Oral 360 240 240 Output: Chest Tube Drainage 300 200 Chest Tube Left 300 200 Other: Voiding Method Indwelling Catheter # Voids 3 1 - Exam GENERAL EXAM: Alert, very pleasant 74-year-old gentleman, up in a chair at the bedside, O2 saturation 90s on 2 L/m per nasal cannula, comfortable in no apparent distress. HEAD: Normocephalic. EYES: Normal reaction of pupils, equal size. NOSE: Clear with pink turbinates. THROAT: No erythema or exudates. NECK: No masses, no JVD. CHEST: No chest wall deformity. Left sided chest tube remains in place. Positive air leak. To waterseal. LUNGS: Equal air entry with diminished breath sounds at the left base. CVS: S1 and S2 normal with no audible murmur, regular rhythm. ABDOMEN: No hepatosplenomegaly, normal bowel sounds, no guarding or rigidity. SPINE: No scoliosis or deformity SKIN: No rashes CENTRAL NERVOUS SYSTEM: No focal deficits, tone is normal in all 4 extremities. EXTREMITIES: There is no peripheral edema. No clubbing, no cyanosis. Peripheral pulses are intact. - Labs CBC & Chem 7: 03/22/20 05:25 03/22/20 05:25 Labs: Abnormal Lab Results - Last 24 Hours (Table) 03/21/20 03/21/20 03/21/20 Range/Units 11:47 16:42 19:49 RBC (4.30-5.90) m/uL Hgb (13.0-17.5) gm/dL Hct (39.0-53.0) % Sodium (137-145) mmol/L BUN (9-20) mg/dL Glucose (74-99) mg/dL POC Glucose (mg/dL) 126 H 128 H 180 H (75-99) mg/dL 03/22/20 03/22/20 03/22/20 Range/Units 05:25 05:25 06:36 RBC 4.11 L (4.30-5.90) m/uL Hgb 12.3 L (13.0-17.5) gm/dL Hct 37.5 L (39.0-53.0) % Sodium 133 L (137-145) mmol/L BUN 29 H (9-20) mg/dL Glucose 112 H (74-99) mg/dL POC Glucose (mg/dL) 138 H (75-99) mg/dL Assessment and Plan Assessment: 1 Adenocarcinoma of the left lower lobe, status post robotic-assisted thoracoscopic left lower lobectomy with mediastinal lymph node biopsies. Pathology pending. Postoperative day #2. 2 History of chronic obstructive pulmonary disease, currently inactive and stable 3 Diabetes mellitus, type II 4 Hyperlipidemia 5 Recent hypertension. 6 History of cholecystitis. Plan: The patient was seen and evaluated by Dr. Vizcaino X-ray and labs reviewed Chest tube to water seal, still with a leak present Working well with the incentive spirometer Increase his activity as tolerated We'll continue to follow I, the cosigning physician, performed a history & physical examination of the patient. Lungs sounds diminished left lung base. Maintaining good O2 saturations in the 90s on 2 L/m per nasal cannula. I discussed the assessment and plan of care with my nurse practitioner, Meera Tracey. I attest to the above note as dictated by her.
[2020-03-22 11:33] LABS: Glucose,Whole Blood 151 mg/dL (75-99)
--- NOTE | 2020-03-22 11:33 | XR ---
EXAMINATION TYPE: XR chest 1V portable DATE OF EXAM: 03/22/2020 HISTORY: pneumothorax. REFERENCE: Previous study of earlier today the patient's left-sided pneumothorax has increased slight ly and now is approximately 20-25% by volume. Pleural drain remains in place on the left. The heart i s mildly prominent. There is residual left basilar atelectasis.. FINDINGS: Slight worsening in the patient's left apical pneumothorax. IMPRESSION:
[2020-03-22] MEDS: KETOROLAC 30 MG/ML 1 ML VIAL IVP PRN ×2 (14:14→19:45)
[2020-03-22 16:40] LABS: Glucose,Whole Blood 137 mg/dL (75-99)
[2020-03-22] MEDS: traMADol 50 MG TAB PO PRN (19:45)
[2020-03-22 21:14] LABS: Glucose,Whole Blood 112 mg/dL (75-99)
[2020-03-23] MEDS: HEPARIN SODIUM,PORCINE 5,000 UNIT/ML 1 ML VIAL SQ SCH ×4 (00:20→23:51)
[2020-03-23] MEDS: traMADol 50 MG TAB PO PRN ×2 (05:51→18:35)
[2020-03-23] MEDS: KETOROLAC 30 MG/ML 1 ML VIAL IVP PRN ×3 (05:51→18:35)
--- NOTE | 2020-03-23 06:02 | XR ---
EXAMINATION TYPE: XR chest 1V DATE OF EXAM: 03/23/2020 HISTORY: post lobectomy. REFERENCE: Previous study dated 03/22/2020. FINDINGS: Left pleural drain remains in place. No sizable pneumothorax is visualized. The heart is enlarged. There are diffuse increased markings throughout just. Pleural spaces appear cl ear. IMPRESSION: APPARENT RESOLUTION OF THE PATIENT'S LEFT PNEUMOTHORAX.
[2020-03-23 06:29] LABS: Glucose,Whole Blood 125 mg/dL (75-99)
[2020-03-23] MEDS ORDERED: SENNOSIDES 8.6 MG TAB PO PRN (06:43)
[2020-03-23] MEDS ORDERED: MAGNESIUM HYDROXIDE 2,400 MG/10 ML CUP PO PRN (06:43)
[2020-03-23] MEDS: INSULIN ASPART (NovoLOG) 100 UNIT/ML VIAL SQ SCH ×4 (06:50→21:10)
--- NOTE | 2020-03-23 07:49 | P.PN ---
Subjective Progress Note Date: 03/23/20 Principal diagnosis: Adenocarcinoma left lower lobe lung. Previous medical history of COPD, postobstructive pneumonia, diet controlled type 2 diabetes, GERD, osteoarthritis, hyperlipidemia, hypertension, BPH, choleysystitis S/P choleycystectomy, and chronic low back pain. POD #3 Robotic-assisted thoracoscopic left lower lobectomy with mediastinal lymph node dissection Postoperative persistent air leak, expected The patient is currently sitting up in the recliner on the cardiac stepdown unit in no acute distress. His only complaint of pain is from the chest tube, does state he thinks he feels clicking of his bone, denies shortness of breath. Left pleural chest tube remains to continuous wall suction with air leak present, less than yesterday. Did attempt to place chest tube to waterseal yesterday, repeat chest x-ray demonstrated increase pneumothorax, chest tube placed back to continuous wall suction, chest x-ray this morning demonstrates no pneumothorax, however air leak is still present. Patient has ambulated in the hallway off suction without any difficulty. Objective - Vital Signs Vital signs: Vital Signs Temp 97.7 F 03/23/20 03:17 Pulse 90 03/23/20 03:17 Resp 18 03/23/20 03:17 BP 120/67 03/23/20 03:17 Pulse Ox 97 03/23/20 03:17 Intake & Output 03/22/20 03/23/20 03/23/20 18:59 06:59 18:59 Intake Total 460 Output Total 550 100 Balance -90 -100 Weight 98.2 kg Intake: Oral 460 Output: Chest Tube Drainage 300 100 Chest Tube Left 300 100 Drainage 250 Left Chest 250 Other: Voiding Method Indwelling Catheter Indwelling Catheter # Voids 2 - Constitutional General appearance: Present: cooperative, no acute distress - Respiratory Details: Lungs sounds diminished bilaterally, coarse on the left side. Respirations even and nonlabored. Currently on 2 L nasal cannula with oxygen saturation 97%. Able to achieve 1000 mL on his incentive spirometry. Left pleural chest tube present continuous wall suction, 80 mL serosanguineous drainage overnight, 500 mL the last 24 hours, air leak present. - Cardiovascular Details: S1, S2 present. Regular rate and rhythm, sinus rhythm on telemetry. Palpable peripheral pulses bilaterally. No edema present. No calf pain or tenderness noted. - Gastrointestinal Gastrointestinal Comment(s): Abdomen soft, nontender, nondistended. Active bowel sounds present 4 quad rants. Tolerating diet. - Genitourinary Genitourinary Comment(s): Continues to void clear, yellow urine - Integumentary Integumentary Comment(s): Skin is warm and dry with evidence of good perfusion. - Neurologic Neurologic: Present: CNII-XII intact - Musculoskeletal Musculoskeletal: Present: gait normal, strength equal bilaterally - Psychiatric Psychiatric: Present: A&O x's 3, appropriate affect, intact judgment & insight - Allied health notes Allied health notes reviewed: nursing - Labs CBC & Chem 7: 03/23/20 08:01 03/23/20 08:01 Labs: Abnormal Lab Results - Last 24 Hours (Table) 03/22/20 03/22/20 03/22/20 Range/Units 11:29 16:33 21:14 POC Glucose (mg/dL) 151 H 137 H 112 H (75-99) mg/dL 03/23/20 Range/Units 06:26 POC Glucose (mg/dL) 125 H (75-99) mg/dL - Imaging and Cardiology Chest x-ray: report reviewed, image reviewed Assessment and Plan Assessment: 1. Adenocarcinoma left lower lobe of the lung, S/P robatic assisted left lower lobectomy with mediastinal lymph node dissection 2. Previous tobacco dependence 3. History of COPD, FEV1 of 1.9, 50% of predicted 4. History of postobstructive pneumonia 5. History of diet controlled type 2 diabetes 6. History of GERD 7. History of hyperlipidemia 8. History of hypertension 9. History of osteoarthritis 10. History of BPH 11. History of chronic low back pain. 12. Postoperative persistent air leak Plan: 1. Chest tube continues to wall suction. Will monitor for resolution of air leak 2. Wean oxygen as tolerated. Continue use of incentive spirometry 10x hour while awake. 3. Bronchodilators per pulmonary 4. Increase activity, ambulate in hallway 5. Pain management per current medication regimen 6. Continue home meds 7. GI/DVT prophylaxis 8. Will monitor daily labs and x-rays 9. More recommendations to follow Time with Patient: Greater than 30
[2020-03-23] MEDS: atenoloL 50 MG TAB PO SCH (07:54)
[2020-03-23] MEDS: FINASTERIDE 5 MG TAB PO SCH (07:54)
[2020-03-23] MEDS: TAMSULOSIN 0.4 MG CAP.ER.24H PO SCH ×2 (07:54→21:09)
[2020-03-23] MEDS: ASPIRIN 81 MG PO SCH (07:54)
[2020-03-23] MEDS: SYMBICORT 80-4.5 MCG INHALER INHALATION SCH ×2 (08:15→19:46)
[2020-03-23] MEDS: IPRATROPIUM-ALBUTEROL 3 ML NEB IH SCH ×4 (08:15→19:34)
[2020-03-23 08:42] LABS: HCT 39.8 % (39.0-53.0); HGB 12.8 gm/dL (13.0-17.5); MCH 29.2 pg (25.0-35.0); MCHC 32.2 g/dL (31.0-37.0); MCV 90.9 fL (80.0-100.0); Mean Platelet Volume 7.5; Platelet Count 374 k/uL (150-450); RBC 4.38 m/uL (4.30-5.90)
[2020-03-23 08:48] LABS: African American GFR (CKD) >90 (>60 ml/min/1.73 sqM); Anion Gap 6 mmol/L; Blood Urea Nitrogen 26 mg/dL (9-20); Calcium 8.8 mg/dL (8.4-10.2); Carbon Dioxide 26 mmol/L (22-30); Chloride 101 mmol/L (98-107); Glucose 138 mg/dL (74-99); Non-African American GFR(CKD) 78 (>60 ml/min/1.73 sqM); Potassium 4.6 mmol/L (3.5-5.1); Sodium 133 mmol/L (137-145)
[2020-03-23 11:41] LABS: Glucose,Whole Blood 172 mg/dL (75-99)
--- NOTE | 2020-03-23 12:37 | P.PN ---
Subjective Progress Note Date: 03/23/20 Principal diagnosis: Adenocarcinoma of the left lower lobe This is a very pleasant 74-year-old gentleman who follows with Dr. Painter as his primary care provider. He also follows with Dr. Torres in our office and was found to have adenocarcinoma of the left lower lobe. He was admitted on 03/20/2020 for an elective robotic-assisted thoracoscopic left lower lobectomy with mediastinal lymph node dissection. He is seen today in follow-up on the selective care unit. He is currently sitting up in a chair at the bedside. He is awake and alert in no acute distress. No worsening shortness of breath, cough or congestion. Left-sided chest tube remains in place. There is still a positive air leak. Currently to waterseal. Today's chest x-ray reveals a tiny residual left apical pneumothorax. He is maintaining good O2 saturations in the 90s on 2 L/m per nasal cannula. He is working well with the incentive spirometer. He is afebrile. Hemodynamically stable. White count 9.7. Hemoglobin 12.3. Serum 133. Potassium 4.7. Creatinine 1.20. He is continued on DuoNeb inhalations, Symbicort. Heparin for DVT prophylaxis. Patient is seen today 03/23/2020 in follow-up on the selective care unit. He is currently sitting up in a chair at the bedside. Awake and alert in no acute distress. No worsening shortness of breath, cough or congestion. No fever, chills or night sweats. Maintaining good O2 saturations in the 90s on room. Working well with the incentive spirometer. Left-sided chest tube remains in place. There is still a positive leak. To waterseal. Minimal serous output. Chest x-ray reveals resolution the patient's left-sided pneumothorax. White count 10.0. Hemoglobin 12.8. Sodium 133. Potassium 4.6. Creatinine 0.87. Objective - Vital Signs Vital signs: Vital Signs Temp 97.8 F 03/23/20 11:49 Pulse 85 03/23/20 11:49 Resp 18 03/23/20 11:49 BP 110/65 03/23/20 11:49 Pulse Ox 90 L 03/23/20 11:49 Intake & Output 03/22/20 03/23/20 03/23/20 18:59 06:59 18:59 Intake Total 460 120 Output Total 550 100 20 Balance -90 -100 100 Weight 98.2 kg Intake: Oral 460 120 Output: Chest Tube Drainage 300 100 20 Chest Tube Left 300 100 20 Drainage 250 Left Chest 250 Other: Voiding Method Indwelling Catheter Indwelling Catheter Toilet # Voids 2 - Exam GENERAL EXAM: Alert, very pleasant 74-year-old gentleman, up in a chair at the bedside, O2 saturation 90s on room air, comfortable in no apparent distress. HEAD: Normocephalic. EYES: Normal reaction of pupils, equal size. NOSE: Clear with pink turbinates. THROAT: No erythema or exudates. NECK: No masses, no JVD. CHEST: No chest wall deformity. Left sided chest tube remains in place. Positive air leak. To waterseal. LUNGS: Equal air entry with diminished breath sounds at the left base. CVS: S1 and S2 normal with no audible murmur, regular rhythm. ABDOMEN: No hepatosplenomegaly, normal bowel sounds, no guarding or rigidity. SPINE: No scoliosis or deformity SKIN: No rashes CENTRAL NERVOUS SYSTEM: No focal deficits, tone is normal in all 4 extremities. EXTREMITIES: There is no peripheral edema. No clubbing, no cyanosis. Peripheral pulses are intact. - Labs CBC & Chem 7: 03/23/20 08:01 03/23/20 08:01 Labs: Abnormal Lab Results - Last 24 Hours (Table) 03/22/20 03/22/20 03/23/20 Range/Units 16:33 21:14 06:26 Hgb (13.0-17.5) gm/dL Sodium (137-145) mmol/L BUN (9-20) mg/dL Glucose (74-99) mg/dL POC Glucose (mg/dL) 137 H 112 H 125 H (75-99) mg/dL 03/23/20 03/23/20 03/23/20 Range/Units 08:01 08:01 11:37 Hgb 12.8 L (13.0-17.5) gm/dL Sodium 133 L (137-145) mmol/L BUN 26 H (9-20) mg/dL Glucose 138 H (74-99) mg/dL POC Glucose (mg/dL) 172 H (75-99) mg/dL Assessment and Plan Assessment: 1 Adenocarcinoma of the left lower lobe, status post robotic-assisted thoracoscopic left lower lobectomy with mediastinal lymph node biopsies. Pathology pending. Postoperative day #3. 2 History of chronic obstructive pulmonary disease, currently inactive and stable 3 Diabetes mellitus, type II 4 Hyperlipidemia 5 Recent hypertension. 6 History of cholecystitis. Plan: The patient was seen and evaluated by Dr. Vizcaino X-ray and labs reviewed, no sizable pneumothorax Chest tube to water seal, still with a leak present Working well with the incentive spirometer Increase his activity as tolerated We'll continue to follow I, the cosigning physician, performed a history & physical examination of the patient. Lungs sounds diminished left lung base. Maintaining good O2 satura tions in the 90s on 2 L/m per nasal cannula. I discussed the assessment and plan of care with my nurse practitioner, Meera Tracey. I attest to the above note as dictated by her.
[2020-03-23 16:43] LABS: Glucose,Whole Blood 154 mg/dL (75-99)
[2020-03-23 20:36] LABS: Glucose,Whole Blood 151 mg/dL (75-99)
[2020-03-24 06:04] LABS: Glucose,Whole Blood 124 mg/dL (75-99)
[2020-03-24] MEDS: INSULIN ASPART (NovoLOG) 100 UNIT/ML VIAL SQ SCH ×4 (06:10→21:06)
--- NOTE | 2020-03-24 07:06 | XR ---
EXAMINATION TYPE: XR chest 2V DATE OF EXAM: 03/24/2020 COMPARISON: Chest x-ray from yesterday. HISTORY: Pneumothorax with chest tube. TECHNIQUE: Frontal and lateral views of the chest are obtained. FINDINGS: Recurrent moderate-sized left pneumothorax despite persistent left-sided chest tube. Pneum othorax estimated near 30%. Patient slightly more rotated to the right on current study. No definitiv e new mediastinal shift. Chronic parenchymal changes with left basilar opacity. Cardiac silhouette size stable and within norm al limits. Cholecystectomy clips redemonstrated. Overlying EKG leads. Spine is straightened on latera l view. IMPRESSION: Recurrent moderate-sized left-sided pneumothorax estimated at 30% current study despite persistent left-sided chest tube placement. A Yellow level critical message alert has been initiated for Cathy Machuca via the [employer] tical Results System on 03/24/2020 7:03 AM. This message alert has been sent to Cathy Machuca via the pre ferences provided by the clinician for the receipt of Radiology Critical Findings. Message ID [id number] .
[2020-03-24] MEDS: SYMBICORT 80-4.5 MCG INHALER INHALATION SCH ×2 (08:03→20:26)
[2020-03-24] MEDS: IPRATROPIUM-ALBUTEROL 3 ML NEB IH SCH ×4 (08:03→20:25)
--- NOTE | 2020-03-24 08:13 | P.PN ---
Subjective Progress Note Date: 03/24/20 Principal diagnosis: Adenocarcinoma left lower lobe lung. Previous medical history of COPD, postobstructive pneumonia, diet controlled type 2 diabetes, GERD, osteoarthritis, hyperlipidemia, hypertension, BPH, choleysystitis S/P choleycystectomy, and chronic low back pain. POD #4 Robotic-assisted thoracoscopic left lower lobectomy with mediastinal lymph node dissection Postoperative persistent air leak, expected The patient is currently sitting up in the recliner on the cardiac stepdown unit in no acute distress. His only complaint of pain is from the chest tube, does state he thinks he feels clicking of his bone, denies shortness of breath. Left pleural chest tube remains to continuous wall suction with air leak present. Did attempt to place chest tube to waterseal Tuesday, repeat chest x-ray demonstrated increase pneumothorax, chest tube placed back to continuous wall suction, chest x-ray yesterday morning demonstrates no pneumothorax, however air leak was still present. Sent patient for 2V CXR this morning, increased pneumothorax while off suction for CXR. Patient has had no respiratory distress and has been ambulating without difficulty Objective - Vital Signs Vital signs: Vital Signs Temp 97.7 F 03/24/20 04:00 Pulse 80 03/24/20 04:00 Resp 18 03/24/20 04:00 BP 127/61 03/24/20 04:00 Pulse Ox 93 L 03/24/20 04:00 Intake & Output 03/23/20 03/24/20 03/24/20 18:59 06:59 18:59 Intake Total 360 150 Output Total 20 150 40 Balance 340 0 -40 Weight 99.8 kg Intake: Oral 360 150 Output: Chest Tube Drainage 20 Chest Tube Left 20 Drainage 150 40 Left Chest 150 40 Other: Voiding Method Toilet Toilet # Voids 1 - Constitutional General appearance: Present: cooperative, no acute distress - Respiratory Details: Lungs sounds diminished bilaterally, coarse on the left side. Respirations even and nonlabored. Currently on 2 L nasal cannula with oxygen saturation 93%. Able to achieve 1250 mL on his incentive spirometry. Left pleural chest tube present continuous wall suction, 150 mL serosanguineous drainage overnight, 350 mL the last 24 hours, air leak present. - Cardiovascular Details: S1, S2 present. Regular rate and rhythm, sinus rhythm on telemetry. Palpable peripheral pulses bilaterally. No edema present. No calf pain or tenderness noted. - Gastrointestinal Gastrointestinal Comment(s): Abdomen soft, nontender, nondistended. Active bowel sounds present 4 quadrants. Tolerating diet. - Genitourinary Genitourinary Comment(s): Continues to void clear, yellow urine - Integumentary Integumentary Comment(s): Skin is warm and dry with evidence of good perfusion. - Neurologic Neurologic: Present: CNII-XII intact - Musculoskeletal Musculoskeletal: Present: gait normal, strength equal bilaterally - Psychiatric Psychiatric: Present: A&O x's 3, appropriate affect, intact judgment & insight - Allied health notes Allied health notes reviewed: nursing - Labs CBC & Chem 7: 03/23/20 08:01 03/23/20 08:01 Labs: Abnormal Lab Results - Last 24 Hours (Table) 03/23/20 03/23/20 03/23/20 Range/Units 08:01 08:01 11:37 Hgb 12.8 L (13.0-17.5) gm/dL Sodium 133 L (137-145) mmol/L BUN 26 H (9-20) mg/dL Glucose 138 H (74-99) mg/dL POC Glucose (mg/dL) 172 H (75-99) mg/dL 03/23/20 03/23/20 03/24/20 Range/Units 16:34 20:34 05:54 Hgb (13.0-17.5) gm/dL Sodium (137-145) mmol/L BUN (9-20) mg/dL Glucose (74-99) mg/dL POC Glucose (mg/dL) 154 H 151 H 124 H (75-99) mg/dL - Imaging and Cardiology Chest x-ray: report reviewed, image reviewed Assessment and Plan Assessment: 1. Adenocarcinoma left lower lobe of the lung, S/P robatic assisted left lower lobectomy with mediastinal lymph node dissection 2. Previous tobacco dependence 3. History of COPD, FEV1 of 1.9, 50% of predicted 4. History of postobstructive pneumonia 5. History of diet controlled type 2 diabetes 6. History of GERD 7. History of hyperlipidemia 8. History of hypertension 9. History of osteoarthritis 10. History of BPH 11. History of chronic low back pain. 12. Postoperative persistent air leak Plan: 1. Chest tube continues to wall suction. Will monitor for resolution of air leak. Chest tube atrium changed 2. Wean oxygen as tolerated. Continue use of incentive spirometry 10x hour while awake. 3. Bronchodilators per pulmonary 4. Increase activity, ambulate in hallway 5. Pain management per current medication regimen 6. Continue home meds 7. GI/DVT prophylaxis 8. Will monitor daily labs and x-rays 9. More recommendations to follow Time with Patient: Greater than 30
[2020-03-24] MEDS: traMADol 50 MG TAB PO PRN ×2 (08:34→18:29)
[2020-03-24] MEDS: ASPIRIN 81 MG PO SCH (08:34)
[2020-03-24] MEDS: TAMSULOSIN 0.4 MG CAP.ER.24H PO SCH ×2 (08:35→21:09)
[2020-03-24] MEDS: FINASTERIDE 5 MG TAB PO SCH (08:35)
[2020-03-24] MEDS: KETOROLAC 30 MG/ML 1 ML VIAL IVP PRN ×2 (08:35→18:28)
[2020-03-24] MEDS: HEPARIN SODIUM,PORCINE 5,000 UNIT/ML 1 ML VIAL SQ SCH ×3 (08:35→23:54)
[2020-03-24] MEDS: atenoloL 50 MG TAB PO SCH (08:35)
[2020-03-24 11:44] LABS: Glucose,Whole Blood 130 mg/dL (75-99)
--- NOTE | 2020-03-24 15:40 | P.PN ---
Subjective Progress Note Date: 03/24/20 72-year-old male patient being seen in follow-up today. The patient is postop day #4 following his robotic-assisted left lower lobe resection for large left lower lobe mass. The patient's underlying emphysema with bullous changes as noted on his preop CAT scan of the chest. Postop he developed a left-sided pneumothorax and persistent air leak. The patient has another 10-15% pneumothorax on today's chest x-ray was noted on the morning chest film. No respiratory distress. He is on room air oxygen. His surgical wound site is dry clean and intact. He is hemodynamic is stable. Is able to speak of. This is an is using his incentive spirometer aggressively. Pain is under good control for now. He has no specific complaints. Objective - Vital Signs Vital signs: Vital Signs Temp 98.4 F 03/24/20 12:00 Pulse 80 03/24/20 15:22 Resp 20 03/24/20 12:00 BP 108/62 03/24/20 12:00 Pulse Ox 97 03/24/20 12:00 Intake & Output 03/23/20 03/24/20 03/24/20 18:59 06:59 18:59 Intake Total 360 150 480 Output Total 20 150 408 Balance 340 0 72 Weight 99.8 kg Intake: Oral 360 150 480 Output: Chest Tube Drainage 20 68 Chest Tube Left 20 68 Drainage 150 40 Left Chest 150 40 Urine 300 Other: Voiding Method Toilet Toilet Toilet # Voids 1 2 # Bowel Movements 0 - Exam - Constitutional General appearance: Present: cooperative, no acute distress - Respiratory Details: Lungs sounds diminished bilaterally, coarse on the left side. Respirations even and nonlabored. Currently on 2 L nasal cannula with oxygen saturation 93%. Able to achieve 1250 mL on his incentive spirometry. Left pleural chest tube present continuous wall suction, 150 mL serosanguineous drainage overnight, 350 mL the last 24 hours, air leak present. - Cardiovascular Details: S1, S2 present. Regular rate and rhythm, sinus rhythm on telemetry. Palpable peripheral pulses bilaterally. No edema present. No calf pain or tenderness noted. - Gastrointestinal Gastrointestinal Comment(s): Abdomen soft, nontender, nondistended. Active bowel sounds present 4 quadrants . Tolerating diet. - Genitourinary Genitourinary Comment(s): Continues to void clear, yellow urine - Integumentary Integumentary Comment(s): Skin is warm and dry with evidence of good perfusion. - Neurologic Neurologic: Present: CNII-XII intact - Musculoskeletal Musculoskeletal: Present: gait normal, strength equal bilaterally - Psychiatric Psychiatric: Present: A&O x's 3, appropriate affect, intact judgment & insight - Labs CBC & Chem 7: 03/23/20 08:01 03/23/20 08:01 Labs: Abnormal Lab Results - Last 24 Hours (Table) 03/23/20 03/23/20 03/24/20 Range/Units 16:34 20:34 05:54 POC Glucose (mg/dL) 154 H 151 H 124 H (75-99) mg/dL 03/24/20 Range/Units 11:38 POC Glucose (mg/dL) 130 H (75-99) mg/dL Assessment and Plan Plan: 1 Adenocarcinoma of the left lower lobe, status post robotic-assisted thoracoscopic left lower lobectomy with mediastinal lymph node biopsies. Pathology pending. Postoperative day #4. Persistent air leak and left-sided pneumothorax is noted on today's chest x-ray 2 History of chronic obstructive pulmonary disease, currently inactive and stable 3 Diabetes mellitus, type II 4 Hyperlipidemia 5 Recent hypertension. 6 History of cholecystitis. Plan The persistent air leak and the pneumothorax and expected outcome of the surgery as the patient has significant bullous changes on his preop CAT scan of the chest. This should resolve spontaneously. Patient is as needed. I asked the patient to continue using incentive spirometer. We'll keep the chest tube to wall suction. Repeat chest x-ray in the morning. Pain control. We'll continue to follow.
[2020-03-24 17:05] LABS: Glucose,Whole Blood 136 mg/dL (75-99)
[2020-03-24 20:57] LABS: Glucose,Whole Blood 143 mg/dL (75-99)
[2020-03-25 06:12] LABS: Glucose,Whole Blood 125 mg/dL (75-99)
[2020-03-25 06:12] LABS: HCT 38.5 % (39.0-53.0); HGB 12.3 gm/dL (13.0-17.5); MCH 29.3 pg (25.0-35.0); MCV 91.6 fL (80.0-100.0); Mean Platelet Volume 7.3; Platelet Count 404 k/uL (150-450); WBC 9.3 k/uL (3.8-10.6)
[2020-03-25] MEDS: INSULIN ASPART (NovoLOG) 100 UNIT/ML VIAL SQ SCH ×4 (06:12→21:25)
[2020-03-25 06:26] LABS: African American GFR (CKD) >90 (>60 ml/min/1.73 sqM); Anion Gap 5 mmol/L; Blood Urea Nitrogen 28 mg/dL (9-20); Calcium 8.8 mg/dL (8.4-10.2); Carbon Dioxide 27 mmol/L (22-30); Chloride 103 mmol/L (98-107); Glucose 111 mg/dL (74-99); Non-African American GFR(CKD) 80 (>60 ml/min/1.73 sqM); Potassium 4.6 mmol/L (3.5-5.1); Sodium 135 mmol/L (137-145)
--- NOTE | 2020-03-25 07:59 | XR ---
EXAMINATION TYPE: XR chest 1V portable DATE OF EXAM: 03/25/2020 HISTORY: Status post lobectomy COMPARISON: March 24, 2020 TECHNIQUE: Single view of the chest is submitted. FINDINGS: Left-sided chest tube is in place. Left-sided pneumothorax persists although is improved with the dis tance of 1.9 cm versus 4.1 cm previously. Left lower lobe infiltrate noted. Right lung is clear. There is no evidence for focal infiltrate. The heart is stable. Hilar and mediastinal structures are within normal limits. Degenerative changes are seen of the dorsal spine. IMPRESSION: 1. Left-sided chest tube is in place. Left-sided pneumothorax persists although is improved with the distance of 1.9 cm versus 4.1 cm previously. Left lower lobe infiltrate noted.
--- NOTE | 2020-03-25 08:17 | P.PN ---
Subjective Progress Note Date: 03/25/20 Principal diagnosis: Adenocarcinoma left lower lobe lung. Previous medical history of COPD, postobstructive pneumonia, diet controlled type 2 diabetes, GERD, osteoarthritis, hyperlipidemia, hypertension, BPH, choleysystitis S/P choleycystectomy, and chronic low back pain. POD #5 Robotic-assisted thoracoscopic left lower lobectomy with mediastinal lymph node dissection Postoperative persistent air leak with pneumothorax, expected The patient is currently sitting up in the recliner on the cardiac stepdown unit in no acute distress. His only complaint of pain is from the chest tube site, denies shortness of breath. Left pleural chest tube remains to continuous wall suction with air leak present. Pneumothorax again present on CXR this AM, but less than yesterday. Suction was turned down to -10 cm wall suction yesterday. Objective - Vital Signs Vital signs: Vital Signs Temp 98.1 F 03/25/20 04:00 Pulse 73 03/25/20 04:00 Resp 20 03/25/20 04:00 BP 130/64 03/25/20 04:00 Pulse Ox 93 L 03/25/20 04:00 Intake & Output 03/24/20 03/25/20 03/25/20 18:59 06:59 18:59 Intake Total 720 240 Output Total 584 100 Balance 136 140 Weight 100.9 kg Intake: Oral 720 240 Output: Chest Tube Drainage 122 100 Chest Tube Left 122 100 Drainage 162 Left Chest 162 Urine 300 Other: Voiding Method Toilet # Voids 1 2 0 # Bowel Movements 0 - Constitutional General appearance: Present: cooperative, no acute distress - Respiratory Details: Lungs sounds diminished bilaterally, coarse on the left side. Respirations even and nonlabored. Currently on 2 L nasal cannula with oxygen saturation 93%. Able to achieve 1500 mL on his incentive spirometry. Left pleural chest tube present continuous wall suction, 60 mL serosanguineous drainage overnight, 350 mL the last 24 hours, air leak present. - Cardiovascular Details: S1, S2 present. Regular rate and rhythm, sinus rhythm on telemetry. Palpable peripheral pulses bilaterally. No edema present. No calf pain or tenderness noted. - Gastrointestinal Gastrointestinal Comment(s): Abdomen soft, nontender, nondistended. Active bowel sounds present 4 quadrants. Tolerating diet. - Genitourinary Genitourinary Comment(s): Continues to void clear, yellow urine - Integumentary Integumentary Comment(s): Skin is warm and dry with evidence of good perfusion. - Neurologic Neurologic: Present: CNII-XII intact - Musculoskeletal Musculoskeletal: Present: gait normal, strength equal bilaterally - Psychiatric Psychiatric: Present: A&O x's 3, appropriate affect, intact judgment & insight - Allied health notes Allied health notes reviewed: nursing - Labs CBC & Chem 7: 03/25/20 05:32 03/25/20 05:32 Labs: Abnormal Lab Results - Last 24 Hours (Table) 03/24/20 03/24/20 03/24/20 Range/Units 11:38 16:38 20:56 RBC (4.30-5.90) m/uL Hgb (13.0-17.5) gm/dL Hct (39.0-53.0) % Sodium (137-145) mmol/L BUN (9-20) mg/dL Glucose (74-99) mg/dL POC Glucose (mg/dL) 130 H 136 H 143 H (75-99) mg/dL 03/25/20 03/25/20 03/25/20 Range/Units 05:32 05:32 06:10 RBC 4.20 L (4.30-5.90) m/uL Hgb 12.3 L (13.0-17.5) gm/dL Hct 38.5 L (39.0-53.0) % Sodium 135 L (137-145) mmol/L BUN 28 H (9-20) mg/dL Glucose 111 H (74-99) mg/dL POC Glucose (mg/dL) 125 H (75-99) mg/dL - Imaging and Cardiology Chest x-ray: report reviewed, image reviewed Assessment and Plan Assessment: 1. Adenocarcinoma left lower lobe of the lung, S/P robatic assisted left lower lobectomy with mediastinal lymph node dissection 2. Previous tobacco dependence 3. History of COPD, FEV1 of 1.9, 50% of predicted 4. History of postobstructive pneumonia 5. History of diet controlled type 2 diabetes 6. History of GERD 7. History of hyperlipidemia 8. History of hypertension 9. History of osteoarthritis 10. History of BPH 11. History of chronic low back pain. 12. Postoperative persistent air leak with pneumothorax Plan: 1. Chest tube continues to wall suction. Will monitor for resolution of air le ak. 2. Wean oxygen as tolerated. Continue use of incentive spirometry 10x hour while awake. 3. Bronchodilators per pulmonary 4. Increase activity, ambulate in hallway 5. Pain management per current medication regimen 6. Continue home meds. Stool softner added 7. GI/DVT prophylaxis 8. Will monitor daily x-rays 9. More recommendations to follow Time with Patient: Greater than 30
[2020-03-25] MEDS: HEPARIN SODIUM,PORCINE 5,000 UNIT/ML 1 ML VIAL SQ SCH ×3 (08:20→23:59)
[2020-03-25] MEDS: KETOROLAC 30 MG/ML 1 ML VIAL IVP PRN (08:20)
[2020-03-25] MEDS: atenoloL 50 MG TAB PO SCH (08:21)
[2020-03-25] MEDS: TAMSULOSIN 0.4 MG CAP.ER.24H PO SCH ×2 (08:21→21:28)
[2020-03-25] MEDS: ASPIRIN 81 MG PO SCH (08:21)
[2020-03-25] MEDS: FINASTERIDE 5 MG TAB PO SCH (08:21)
[2020-03-25] MEDS: traMADol 50 MG TAB PO PRN ×2 (08:21→16:17)
[2020-03-25] MEDS: SENNOSIDES 8.6 MG TAB PO SCH (08:29)
[2020-03-25] MEDS: SYMBICORT 80-4.5 MCG INHALER INHALATION SCH ×2 (09:55→19:47)
[2020-03-25] MEDS: IPRATROPIUM-ALBUTEROL 3 ML NEB IH SCH ×4 (09:55→19:47)
[2020-03-25 11:30] LABS: Glucose,Whole Blood 125 mg/dL (75-99)
--- NOTE | 2020-03-25 14:07 | P.PN ---
Subjective Progress Note Date: 03/25/20 Principal diagnosis: Adenocarcinoma of the left lower lobe, status post robotic-assisted thoracoscopic left lower lobectomy 72-year-old male patient being seen in follow-up today. The patient is postop day #4 following his robotic-assisted left lower lobe resection for large left lower lobe mass. The patient's underlying emphysema with bullous changes as noted on his preop CAT scan of the chest. Postop he developed a left-sided pneumothorax and persistent air leak. The patient has another 10-15% pneumothorax on today's chest x-ray was noted on the morning chest film. No respiratory distress. He is on room air oxygen. His surgical wound site is dry clean and intact. He is hemodynamic is stable. Is able to speak of. This is an is using his incentive spirometer aggressively. Pain is under good control for now. He has no specific complaints. On 03/25/2020 patient seen in follow-up on selective care unit, he status post robotic-assisted left lower lobe resection for large left lower lobe mass, and today's postoperative day #5, he is on on 2 L of oxygen had pulse ox is 95%. Left-sided chest tube remains in place still with assistant accounting manager air leak. Today's c hest x-ray shows improving left sided pneumothorax. Pain is reasonably controlled. It is not been reviewed, white blood cell count of 9.3, hemoglobin is 12.3, electrolytes and renal profile is unremarkable. Objective - Vital Signs Vital signs: Vital Signs Temp 97.5 F L 03/25/20 12:00 Pulse 80 03/25/20 13:49 Resp 18 03/25/20 12:00 BP 110/56 03/25/20 12:00 Pulse Ox 95 03/25/20 12:00 Intake & Output 03/24/20 03/25/20 03/25/20 18:59 06:59 18:59 Intake Total 720 240 480 Output Total 584 100 61 Balance 136 140 419 Weight 100.9 kg Intake: Oral 720 240 480 Output: Chest Tube Drainage 122 100 61 Chest Tube Left 122 100 61 Drainage 162 Left Chest 162 Urine 300 Other: Voiding Method Toilet Toilet # Voids 1 2 0 # Bowel Movements 0 - Exam GENERAL EXAM: Alert, very pleasant, 74-year-old white male on 2 L of oxygen with pulse ox of 95%, and a left-sided chest tube in place with persistent air leak comfortable in no apparent distress. HEAD: Normocephalic/atraumatic. EYES: Normal reaction of pupils, equal size. Conjunctiva pink, sclera white. NOSE: Clear with pink turbinates. THROAT: No erythema or exudates. NECK: No masses, no JVD, no thyroid enlargement, no adenopathy. CHEST: No chest wall deformity. Symmetrical expansion. Left-sided chest tube in place, with persistent air leak evident LUNGS: no crackles, wheeze, rhonchi or dullness. Diminished breath sounds on the left side CVS: Regular rate and rhythm, normal S1 and S2, no gallops, no murmurs, no rubs ABDOMEN: Soft, nontender. No hepatosplenomegaly, normal bowel sounds, no guarding or rigidity. EXTREMITIES: No clubbing, no edema, no cyanosis, 2+ pulses and upper and lower extremities. MUSCULOSKELETAL: Muscle strength and tone normal. SPINE: No scoliosis or deformity SKIN: No rashes CENTRAL NERVOUS SYSTEM: Alert and oriented -3. No focal deficits, tone is normal in all 4 extremities. PSYCHIATRIC: Alert and oriented -3. Appropriate affect. Intact judgment and insight. - Labs CBC & Chem 7: 03/25/20 05:32 03/25/20 05:32 Labs: Abnormal Lab Results - Last 24 Hours (Table) 03/24/20 03/24/20 03/25/20 Range/Units 16:38 20:56 05:32 RBC 4.20 L (4.30-5.90) m/uL Hgb 12.3 L (13.0-17.5) gm/dL Hct 38.5 L (39.0-53.0) % Sodium (137-145) mmol/L BUN (9-20) mg/dL Glucose (74-99) mg/dL POC Glucose (mg/dL) 136 H 143 H (75-99) mg/dL 03/25/20 03/25/20 03/25/20 Range/Units 05:32 06:10 11:19 RBC (4.30-5.90) m/uL Hgb (13.0-17.5) gm/dL Hct (39.0-53.0) % Sodium 135 L (137-145) mmol/L BUN 28 H (9-20) mg/dL Glucose 111 H (74-99) mg/dL POC Glucose (mg/dL) 125 H 125 H (75-99) mg/dL Assessment and Plan Plan: Assessment: 1 Adenocarcinoma of the left lower lobe, status post robotic-assisted thorac oscopic left lower lobectomy with mediastinal lymph node biopsies. Pathology pending. Postoperative day #5. Persistent air leak and left-sided pneumothorax is noted on today's chest x-ray 2 History of chronic obstructive pulmonary disease, currently inactive and stable 3 Diabetes mellitus, type II 4 Hyperlipidemia 5 Recent hypertension. 6 History of cholecystitis. Plan: Today's chest x-ray has been reviewed showing improving left-sided pneumothorax, left chest tube remains in place with persistent air leak, is maintaining to wall suction, hemodynamically patient is stable, afebrile, no worsening dyspnea, surgical biopsy pathology results are still pending. Encourage deep breathing and coughing. We'll continue to follow along with CT surgery I performed a history & physical examination of the patient and discussed their management with my nurse practitioner, Rima Huber. I reviewed the nurse practitioner's note and agree with the documented findings and plan of care. L vadim sounds are positive for diminished breath sounds on the left side. The findings and the impression was discussed with the patient. I attest to the documentation by the nurse practitioner. Time with Patient: Less than 30
[2020-03-25 17:15] LABS: Glucose,Whole Blood 166 mg/dL (75-99)
[2020-03-25 20:37] LABS: Glucose,Whole Blood 126 mg/dL (75-99)
[2020-03-26 06:18] LABS: Glucose,Whole Blood 115 mg/dL (75-99)
[2020-03-26] MEDS: INSULIN ASPART (NovoLOG) 100 UNIT/ML VIAL SQ SCH ×4 (06:19→21:17)
--- NOTE | 2020-03-26 07:27 | XR ---
EXAMINATION TYPE: XR chest 1V portable DATE OF EXAM: 03/26/2020 COMPARISON: 03/25/2020 INDICATION: Pneumothorax TECHNIQUE: Single frontal view of the chest is obtained. FINDINGS: The heart size is normal. The pulmonary vasculature is normal. There is elevation left diaphragm. Mild left lower lobe infiltrate is present. A left-sided chest tub e is present with the tip directed towards the apex. There is a left apical pneumothorax which is ess entially stable from comparison. IMPRESSION: 1. Stable left apical pneumothorax. 2 left lower lobe infiltrate elevation left diaphragm.
[2020-03-26] MEDS: IPRATROPIUM-ALBUTEROL 3 ML NEB IH SCH ×4 (08:50→19:39)
[2020-03-26] MEDS: SYMBICORT 80-4.5 MCG INHALER INHALATION SCH ×2 (08:51→19:39)
[2020-03-26] MEDS: ASPIRIN 81 MG PO SCH (09:29)
[2020-03-26] MEDS: FINASTERIDE 5 MG TAB PO SCH (09:29)
[2020-03-26] MEDS: atenoloL 50 MG TAB PO SCH (09:29)
[2020-03-26] MEDS: TAMSULOSIN 0.4 MG CAP.ER.24H PO SCH ×2 (09:30→21:17)
[2020-03-26] MEDS: traMADol 50 MG TAB PO PRN ×2 (09:30→21:17)
[2020-03-26] MEDS: SENNOSIDES 8.6 MG TAB PO SCH ×2 (09:30→09:34)
[2020-03-26] MEDS: HEPARIN SODIUM,PORCINE 5,000 UNIT/ML 1 ML VIAL SQ SCH ×3 (09:30→23:33)
--- NOTE | 2020-03-26 11:07 | P.PN ---
Subjective Progress Note Date: 03/26/20 Principal diagnosis: Adenocarcinoma left lower lobe lung. Previous medical history of COPD, postobstructive pneumonia, diet controlled type 2 diabetes, GERD, osteoarthritis, hyperlipidemia, hypertension, BPH, choleysystitis S/P choleycystectomy, and chronic low back pain. POD #6 Robotic-assisted thoracoscopic left lower lobectomy with mediastinal lymph node dissection Postoperative persistent air leak with pneumothorax, expected The patient is currently sitting up in the recliner on the cardiac stepdown unit in no acute distress. His only complaint of pain is from the chest tube site, denies shortness of breath. Left pleural chest tube remains to continuous wall suction with air leak present. Pneumothorax again present on CXR this AM, same as yesterday. Suction remains at -10 cm wall suction. 95 ml serosanginous drainage last 8 hours, 265 for 24 hours. Pathology resulted L11 lymph node positive for metastatic pulmonary adenocarcinoma stage 2b N1. Lung, left lower lobectomy resulted for invasive moderately to poorly differentiated for pulmonary carcinoma; bronchial, vascular and hilar soft tissue margins negative for malignancy; at least three hilar lymph nodes negative for metastasis. Objective - Vital Signs Vital signs: Vital Signs Temp 98 F 03/26/20 04:00 Pulse 82 03/26/20 08:50 Resp 20 03/26/20 04:00 BP 124/63 03/26/20 04:00 Pulse Ox 93 L 03/26/20 04:00 Intake & Output 03/25/20 03/26/20 03/26/20 18:59 06:59 18:59 Intake Total 1200 240 Output Total 160 145 Balance 1040 95 Weight 99.6 kg Intake: Oral 1200 240 Output: Chest Tube Drainage 120 145 Chest Tube Left 120 145 Drainage 40 Left Chest 40 Other: Voiding Method Toilet # Voids 2 2 - Constitutional General appearance: Present: cooperative, no acute distress - EENT Eyes: Present: PERRLA ENT: Present: hearing grossly normal - Respiratory Details: Lungs sounds diminished bilaterally, coarse on the left side. Respirations even and nonlabored. Currently on 2 L nasal cannula with oxygen saturation 93%. Able to achieve 1500 mL on his incentive spirometry. Left pleural chest tube present continuous wall suction, 85 mL serosanguineous drainage overnight, 222 mL the last 24 hours, air leak present. - Cardiovascular Details: S1, S2 present. Regular rate and rhythm. 2/6 systolic murmur auscultated 3rd intercostal space, left sternal border. Palpable peripheral pulses bilaterally. No edema present. No calf pain or tenderness noted. - Gastrointestinal Gastrointestinal Comment(s): Abdomen soft, nontender, nondistended. Active bowel sounds present 4 quadrants. Tolerating diet. - Genitourinary Genitourinary Comment(s): Continues to void clear, yellow urine. - Integumentary Integumentary Comment(s): Skin is warm and dry with evidence of good perfusion - Neurologic Neurologic: Present: CNII-XII intact - Musculoskeletal Musculoskeletal: Present: gait normal, strength equal bilaterally - Psychiatric Psychiatric: Present: A&O x's 3, appropriate affect, intact judgment & insight - Allied health notes Allied health notes reviewed: nursing - Labs CBC & Chem 7: 03/25/20 05:32 03/25/20 05:32 Labs: Abnormal Lab Results - Last 24 Hours (Table) 03/25/20 03/25/20 03/25/20 Range/Units 11:19 17:13 20:36 POC Glucose (mg/dL) 125 H 166 H 126 H (75-99) mg/dL 03/26/20 Range/Units 06:17 POC Glucose (mg/dL) 115 H (75-99) mg/dL - Imaging and Cardiology Chest x-ray: report reviewed Assessment and Plan Assessment: 1. Adenocarcinoma left lower lobe of the lung stage 2b N1, S/P robatic assisted left lower lobectomy with mediastinal lymph node dissection 2. Previous tobacco dependence 3. History of COPD, FEV1 of 1.9, 50% of predicted 4. History of postobstructive pneumonia 5. History of diet controlled type 2 diabetes 6. History of GERD 7. History of hyperlipidemia 8. History of hypertension 9. History of osteoarthritis 10. History of BPH 11. History of chronic low back pain. 12. Postoperative persistent air leak with pneumothorax Plan: 1. Chest tube continues to wall suction. Will monitor for resolution of air leak. 2. Wean oxygen as tolerated. Continue use of incentive spirometry 10x hour while awake. 3. Bronchodilators per pulmonary. 4. Increase activity, ambulate in hallway. 5. Pain management per current medication regimen. 6. Continue home meds. Stool softener added. 7. GI/DVT prophylaxis. 8. Will monitor daily x-rays 9. Dr Hernández discussed results with patient. Patient will need chemotherapy 4-6 weeks from now after he has recovered from his surgery. Will be further discussed on an outpatient basis. 9. More recommendations to follow Time with Patient: Greater than 30
[2020-03-26 12:33] LABS: Glucose,Whole Blood 105 mg/dL (75-99)
--- NOTE | 2020-03-26 12:57 | P.PN ---
Subjective Progress Note Date: 03/26/20 Principal diagnosis: Adenocarcinoma of the left lower lobe This is a very pleasant 74-year-old gentleman who follows with Dr. Painter as his primary care provider. He also follows with Dr. Torres in our office and was found to have adenocarcinoma of the left lower lobe. He was admitted on 03/20/2020 for an elective robotic-assisted thoracoscopic left lower lobectomy with mediastinal lymph node dissection. He is seen today in follow-up on the selective care unit. He is currently sitting up in a chair at the bedside. He is awake and alert in no acute distress. No worsening shortness of breath, cough or congestion. Left-sided chest tube remains in place. There is still a positive air leak. Currently to waterseal. Today's chest x-ray reveals a tiny residual left apical pneumothorax. He is maintaining good O2 saturations in the 90s on 2 L/m per nasal cannula. He is working well with the incentive spirometer. He is afebrile. Hemodynamically stable. White count 9.7. Hemoglobin 12.3. Serum 133. Potassium 4.7. Creatinine 1.20. He is continued on DuoNeb inhalations, Symbicort. Heparin for DVT prophylaxis. The patient is seen today 03/26/2020 in follow-up on the selective care unit. This is postoperative day #6. He is currently sitting up in a chair at the bedside. Awake and alert in no acute distress. Left chest tube remains in place with a consistent air leak. Chest x-ray continues to show some left-sided pneumothorax. Stable. He is maintaining good O2 saturations in the 90s on room air. She's afebrile. Hemodynamically stable. He remains on DuoNeb inhalations and Symbicort. He is working well with the incentive spirometer. He's been up ambulating without any significant shortness of breath. Objective - Vital Signs Vital signs: Vital Signs Temp 97.8 F 03/26/20 09:20 Pulse 78 03/26/20 12:46 Resp 16 03/26/20 11:30 BP 115/65 03/26/20 11:30 Pulse Ox 92 L 03/26/20 11:30 Intake & Output 03/25/20 03/26/20 03/26/20 18:59 06:59 18:59 Intake Total 1200 240 240 Output Total 160 145 Balance 1040 95 240 Weight 99.6 kg Intake: Oral 1200 240 240 Output: Chest Tube Drainage 120 145 Chest Tube Left 120 145 Drainage 40 Left Chest 40 Other: Voiding Method Toilet Toilet # Voids 2 2 - Exam GENERAL EXAM: Alert, very pleasant 74-year-old gentleman, up in a chair at the bedside, O2 saturation 90s on room air, comfortable in no apparent distress. HEAD: Normocephalic. EYES: Normal reaction of pupils, equal size. NOSE: Clear with pink turbinates. THROAT: No erythema or exudates. NECK: No masses, no JVD. CHEST: No chest wall deformity. Left sided chest tube remains in place. Positive air leak. LUNGS: Equal air entry with diminished breath sounds at the left base. CVS: S1 and S2 normal with no audible murmur, regular rhythm. ABDOMEN: No hepatosplenomegaly, normal bowel sounds, no guarding or rigidity. SPINE: No scoliosis or deformity SKIN: No rashes CENTRAL NERVOUS SYSTEM: No focal deficits, tone is normal in all 4 extremities. EXTREMITIES: There is no peripheral edema. No clubbing, no cyanosis. Peripheral pulses are intact. - Labs CBC & Chem 7: 03/25/20 05:32 03/25/20 05:32 Labs: Abnormal Lab Results - Last 24 Hours (Table) 03/25/20 03/25/20 03/26/20 Range/Units 17:13 20:36 06:17 POC Glucose (mg/dL) 166 H 126 H 115 H (75-99) mg/dL 03/26/20 Range/Units 12:26 POC Glucose (mg/dL) 105 H (75-99) mg/dL Assessment and Plan Assessment: 1 Adenocarcinoma of the left lower lobe, status post robotic-assisted thoracoscopic left lower lobectomy with mediastinal lymph node biopsies. Pathology pending. Postoperative day #6. 2 History of chronic obstructive pulmonary disease, currently inactive and stable 3 Diabetes mellitus, type II 4 Hyperlipidemia 5 Recent hypertension. 6 History of cholecystitis. Plan: The patient was seen and evaluated by Dr. Randall X-ray reviewed, no sizable pneumothorax Chest tube still with a leak present Working well with the incentive spirometer Increase his activity as tolerated Repeat chest x-ray in a.m. We'll continue to follow I, the cosigning physician, performed a history & physical examination of the patient. Lungs sounds diminished left lung base. Maintaining good O2 saturations in the 90s on room air. I discussed the assessment and plan of care with my nurse practitioner, Meera Tracey. I attest to the above note as dictated by her.
[2020-03-26 14:36] VITALS: BMI 28.1
[2020-03-26 17:17] LABS: Glucose,Whole Blood 138 mg/dL (75-99)
[2020-03-26 20:14] LABS: Glucose,Whole Blood 138 mg/dL (75-99)
[2020-03-27 06:18] LABS: Glucose,Whole Blood 115 mg/dL (75-99)
[2020-03-27] MEDS: INSULIN ASPART (NovoLOG) 100 UNIT/ML VIAL SQ SCH ×4 (06:30→20:01)
--- NOTE | 2020-03-27 07:03 | XR ---
EXAMINATION TYPE: XR chest 1V portable DATE OF EXAM: 03/27/2020 CLINICAL HISTORY: Difficulty breathing progress study. History of left-sided partial pneumonectomy f or lung cancer. TECHNIQUE: Single AP portable upright view of the chest is obtained. COMPARISON: Chest x-ray from one day earlier and older studies. CTA chest February 25, 2020. FINDINGS: Stable small left apical pneumothorax estimated 10% despite left-sided chest tube. Left-sided volume loss from partial pneumonectomy changes with sutures left suprahilar level redemons trated. Background chronic emphysematous and parenchymal fibrotic changes with increasing left basila r opacity silhouetting left heart border. Right lung remains clear. Cardiac silhouette size remains w ithin normal limits. Osseous structures are intact. IMPRESSION: Stable small left pneumothorax despite chest tube placement. Background chronic emphysema tous and parenchymal fibrotic change along with left-sided partial pneumonectomy and volume loss with persistent worsening left basilar acute infiltrate and/or atelectasis noted.
--- NOTE | 2020-03-27 08:06 | P.PN ---
Subjective Progress Note Date: 03/27/20 Principal diagnosis: Adenocarcinoma left lower lobe lung. Previous medical history of COPD, postobstructive pneumonia, diet controlled type 2 diabetes, GERD, osteoarthritis, hyperlipidemia, hypertension, BPH, choleysystitis S/P choleycystectomy, and chronic low back pain. POD #7 Robotic-assisted thoracoscopic left lower lobectomy with mediastinal lymph node dissection Postoperative persistent air leak with pneumothorax, expected The patient is currently sitting up in the recliner on the cardiac stepdown unit in no acute distress eating breakfast. His only complaint of pain is from the chest tube site, denies shortness of breath. Left pleural chest tube remains to continuous wall suction with air leak present. Pneumothorax again present on CXR this AM, but less than yesterday. Patient has been ambulatory in the room. Objective - Vital Signs Vital signs: Vital Signs Temp 98.2 F 03/27/20 04:00 Pulse 74 03/27/20 04:00 Resp 16 03/27/20 04:00 BP 125/63 03/27/20 04:00 Pulse Ox 92 L 03/27/20 04:00 Intake & Output 03/26/20 03/27/20 03/27/20 18:59 06:59 18:59 Intake Total 240 Output Total 90 1405 150 Balance 150 -1405 -150 Weight 99.6 kg Intake: Oral 240 Output: Chest Tube Drainage 90 185 150 Chest Tube Left 90 185 150 Urine 1220 Other: Voiding Method Toilet Toilet # Voids 2 2 # Bowel Movements 0 - Constitutional General appearance: Present: cooperative, no acute distress - Respiratory Details: Lungs sounds diminished bilaterally, coarse on the left side. Respirations even and nonlabored. Currently on room air with oxygen saturation 92%. Able to achieve 1500 mL on his incentive spirometry. Left pleural chest tube present continuous wall suction, 185 mL serosanguineous drainage overnight, 250 mL the l ast 24 hours, air leak present. - Cardiovascular Details: S1, S2 present. Regular rate and rhythm, sinus rhythm on telemetry. Palpable peripheral pulses bilaterally. No edema present. No calf pain or tenderness noted. - Gastrointestinal Gastrointestinal Comment(s): Abdomen soft, nontender, nondistended. Active bowel sounds present 4 quadrants. Tolerating diet. - Genitourinary Genitourinary Comment(s): Continues to void clear, yellow urine - Integumentary Integumentary Comment(s): Skin is warm and dry with evidence of good perfusion. - Neurologic Neurologic: Present: CNII-XII intact - Musculoskeletal Musculoskeletal: Present: gait normal, strength equal bilaterally - Psychiatric Psychiatric: Present: A&O x's 3, appropriate affect, intact judgment & insight - Allied health notes Allied health notes reviewed: nursing - Labs CBC & Chem 7: 03/25/20 05:32 03/25/20 05:32 Labs: Abnormal Lab Results - Last 24 Hours (Table) 03/26/20 03/26/20 03/26/20 Range/Units 12:26 17:05 20:13 POC Glucose (mg/dL) 105 H 138 H 138 H (75-99) mg/dL 03/27/20 Range/Units 06:17 POC Glucose (mg/dL) 115 H (75-99) mg/dL - Imaging and Cardiology Chest x-ray: report reviewed, image reviewed Assessment and Plan Assessment: 1. 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 Previous tobacco dependence 3. History of COPD, FEV1 of 1.9, 50% of predicted 4. History of postobstructive pneumonia 5. History of diet controlled type 2 diabetes 6. History of GERD 7. History of hyperlipidemia 8. History of hypertension 9. History of osteoarthritis 10. History of BPH 11. History of chronic low back pain. 12. Postoperative persistent air leak with pneumothorax Plan: 1. Chest tube continues to wall suction. Will monitor for resolution of air leak. 2. Pathology report discussed with patient by Dr. Hernández. Patient will need chemo 4-6 weeks after recovery from surgery. 3. Continue use of incentive spirometry 10x hour while awake. 4. Bronchodilators per pulmonary 5. Increase activity, ambulate in room while on suction 6. Pain management per current medication regimen 7. Continue home meds. 8. GI/DVT prophylaxis 9. Will monitor daily x-rays 10. More recommendations to follow Time with Patient: Greater than 30
[2020-03-27] MEDS: IPRATROPIUM-ALBUTEROL 3 ML NEB IH SCH ×4 (08:35→20:46)
[2020-03-27] MEDS: SYMBICORT 80-4.5 MCG INHALER INHALATION SCH ×2 (08:35→20:46)
[2020-03-27] MEDS: FINASTERIDE 5 MG TAB PO SCH (09:30)
[2020-03-27] MEDS: atenoloL 50 MG TAB PO SCH (09:30)
[2020-03-27] MEDS: ASPIRIN 81 MG PO SCH (09:31)
[2020-03-27] MEDS: HEPARIN SODIUM,PORCINE 5,000 UNIT/ML 1 ML VIAL SQ SCH ×3 (09:31→23:29)
[2020-03-27] MEDS: TAMSULOSIN 0.4 MG CAP.ER.24H PO SCH ×2 (09:31→20:05)
[2020-03-27] MEDS: SENNOSIDES 8.6 MG TAB PO SCH (09:31)
[2020-03-27 11:39] LABS: Glucose,Whole Blood 114 mg/dL (75-99)
--- NOTE | 2020-03-27 12:01 | P.PN ---
Subjective Progress Note Date: 03/27/20 Principal diagnosis: Adenocarcinoma of the left lower lobe This is a very pleasant 74-year-old gentleman who follows with Dr. Painter as his primary care provider. He also follows with Dr. Torres in our office and was found to have adenocarcinoma of the left lower lobe. He was admitted on 03/20/2020 for an elective robotic-assisted thoracoscopic left lower lobectomy with mediastinal lymph node dissection. He is seen today in follow-up on the selective care unit. He is currently sitting up in a chair at the bedside. He is awake and alert in no acute distress. No worsening shortness of breath, cough or congestion. Left-sided chest tube remains in place. There is still a positive air leak. Currently to waterseal. Today's chest x-ray reveals a tiny residual left apical pneumothorax. He is maintaining good O2 saturations in the 90s on 2 L/m per nasal cannula. He is working well with the incentive spirometer. He is afebrile. Hemodynamically stable. White count 9.7. Hemoglobin 12.3. Serum 133. Potassium 4.7. Creatinine 1.20. He is continued on DuoNeb inhalations, Symbicort. Heparin for DVT prophylaxis. The patient is seen today 03/26/2020 in follow-up on the selective care unit. This is postoperative day #6. He is currently sitting up in a chair at the bedside. Awake and alert in no acute distress. Left chest tube remains in place with a consistent air leak. Chest x-ray continues to show some left-sided pneumothorax. Stable. He is maintaining good O2 saturations in the 90s on room air. She's afebrile. Hemodynamically stable. He remains on DuoNeb inhalations and Symbicort. He is working well with the incentive spirometer. He's been up ambulating without any significant shortness of breath. The patient is seen today 03/27/2020 in follow-up on the selective care unit. He is awake and alert in no acute distress. Currently sitting up in a chair at the bedside. Postoperative day #7. Left chest tube remains in place with the air leak still present. Chest x-ray shows small stable left pneumothorax. He continues to work well with the incentive spirometer. Up ambulating in room without any worsening shortness of breath. Objective - Vital Signs Vital signs: Vital Signs Temp 97.9 F 03/27/20 08:00 Pulse 73 03/27/20 11:58 Resp 19 03/27/20 08:00 BP 113/71 03/27/20 08:00 Pulse Ox 93 L 03/27/20 08:00 Intake & Output 03/26/20 03/27/20 03/27/20 18:59 06:59 18:59 Intake Total 240 240 Output Total 90 1405 150 Balance 150 -1405 90 Weight 99.6 kg Intake: Oral 240 240 Output: Chest Tube Drainage 90 185 150 Chest Tube Left 90 185 150 Urine 1220 Other: Voiding Method Toilet Toilet # Voids 2 2 # Bowel Movements 0 - Exam GENERAL EXAM: Alert, very pleasant 74-year-old gentleman, up in a chair at the bedside, O2 saturation 90s on room air, comfortable in no apparent distress. HEAD: Normocephalic. EYES: Normal reaction of pupils, equal size. NOSE: Clear with pink turbinates. THROAT: No erythema or exudates. NECK: No masses, no JVD. CHEST: No chest wall deformity. Left sided chest tube remains in place. Positive air leak. LUNGS: Equal air entry with diminished breath sounds at the left base. CVS: S1 and S2 normal with no audible murmur, regular rhythm. ABDOMEN: No hepatosplenomegaly, normal bowel sounds, no guarding or rigidity. SPINE: No scoliosis or deformity SKIN: No rashes CENTRAL NERVOUS SYSTEM: No focal deficits, tone is normal in all 4 extremities. EXTREMITIES: There is no peripheral edema. No clubbing, no cyanosis. Peripheral pulses are intact. - Labs CBC & Chem 7: 03/25/20 05:32 03/25/20 05:32 Labs: Abnormal Lab Results - Last 24 Hours (Table) 03/26/20 03/26/20 03/26/20 Range/Units 12:26 17:05 20:13 POC Glucose (mg/dL) 105 H 138 H 138 H (75-99) mg/dL 03/27/20 03/27/20 Range/Units 06:17 11:38 POC Glucose (mg/dL) 115 H 114 H (75-99) mg/dL Assessment and Plan Assessment: 1 Adenocarcinoma of the left lower lobe, status post robotic-assisted thoracoscopic left lower lobectomy with mediastinal lymph node biopsies. Pathology pending. Postoperative day #7. 2 History of chronic obstructive pulmonary disease, currently inactive and stable 3 Diabetes mellitus, type II 4 Hyperlipidemia 5 Recent hypertension. 6 History of cholecystitis. Plan: The patient was seen and evaluated by Dr. Randall X-ray reviewed, small stable pneumothorax Chest tube still with a leak present Working well with the incentive spirometer Increase his activity as tolerated Repeat chest x-ray in a.m. We'll continue to follow I, the cosigning physician, performed a history & physical examination of the patient. Lungs sounds diminished left lung base. Maintaining good O2 saturations in the 90s on room air. I discussed the assessment and plan of care with my nurse practitioner, Meera Tracey. I attest to the above note as dictated by her.
[2020-03-27] MEDS: traMADol 50 MG TAB PO PRN (20:07)
[2020-03-27 20:13] LABS: Glucose,Whole Blood 162 mg/dL (75-99)
[2020-03-28 05:58] LABS: HCT 38.4 % (39.0-53.0); HGB 12.3 gm/dL (13.0-17.5); MCH 29.2 pg (25.0-35.0); MCHC 31.9 g/dL (31.0-37.0); MCV 91.6 fL (80.0-100.0); Mean Platelet Volume 6.8; Platelet Count 542 k/uL (150-450); RDW 12.7 % (11.5-15.5)
[2020-03-28 06:11] LABS: African American GFR (CKD) >90 (>60 ml/min/1.73 sqM); Anion Gap 4 mmol/L; Blood Urea Nitrogen 20 mg/dL (9-20); Carbon Dioxide 27 mmol/L (22-30); Chloride 103 mmol/L (98-107); Glucose 108 mg/dL (74-99); Non-African American GFR(CKD) 87 (>60 ml/min/1.73 sqM); Potassium 4.2 mmol/L (3.5-5.1); Sodium 134 mmol/L (137-145)
[2020-03-28 06:15] LABS: Glucose,Whole Blood 104 mg/dL (75-99)
[2020-03-28] MEDS: INSULIN ASPART (NovoLOG) 100 UNIT/ML VIAL SQ SCH ×4 (06:42→21:08)
--- NOTE | 2020-03-28 07:10 | XR ---
EXAMINATION TYPE: XR chest 1V portable DATE OF EXAM: 03/28/2020 COMPARISON: 03/27/2020 HISTORY: Follow-up pneumothorax TECHNIQUE: Single frontal view of the chest is obtained. FINDINGS: Left-sided chest tube seen with interval reduction in size of the left pneumothorax now me asuring approximately 5%. Left-sided consolidation hemidiaphragm elevation with pleural thickening or effusions table. Heart size stable. No overt failure. IMPRESSION: 1. Interval reduction in the size of the pneumothorax now measuring approximately 5%.
[2020-03-28] MEDS: SENNOSIDES 8.6 MG TAB PO SCH ×2 (08:31→08:43)
[2020-03-28] MEDS: ASPIRIN 81 MG PO SCH (08:31)
[2020-03-28] MEDS: FINASTERIDE 5 MG TAB PO SCH (08:32)
[2020-03-28] MEDS: HEPARIN SODIUM,PORCINE 5,000 UNIT/ML 1 ML VIAL SQ SCH ×3 (08:32→22:32)
[2020-03-28] MEDS: atenoloL 50 MG TAB PO SCH (08:32)
[2020-03-28] MEDS: TAMSULOSIN 0.4 MG CAP.ER.24H PO SCH ×2 (08:32→19:45)
[2020-03-28] MEDS: IPRATROPIUM-ALBUTEROL 3 ML NEB IH SCH ×4 (08:44→20:14)
[2020-03-28] MEDS: SYMBICORT 80-4.5 MCG INHALER INHALATION SCH ×2 (08:44→20:14)
--- NOTE | 2020-03-28 10:51 | P.PN ---
Subjective Progress Note Date: 03/28/20 Principal diagnosis: Adenocarcinoma left lower lobe lung. Previous medical history of COPD, postobstructive pneumonia, diet controlled type 2 diabetes, GERD, osteoarthritis, hyperlipidemia, hypertension, BPH, choleysystitis S/P choleycystectomy, and chronic low back pain. POD #8 Robotic-assisted thoracoscopic left lower lobectomy with mediastinal lymph node dissection Postoperative persistent air leak with pneumothorax, expected The patient is currently sitting up in the recliner on the cardiac stepdown unit in no acute distress. He denies any pain. Left pleural chest tube is attached to wall suction with no air leak present. Pneumothorax on CXR this AM is improved f rom yesterday. Patient is ambulatory in the room and has a good appetite. Objective - Vital Signs Vital signs: Vital Signs Temp 98.4 F 03/27/20 20:00 Pulse 72 03/28/20 04:00 Resp 18 03/28/20 04:00 BP 122/63 03/28/20 04:00 Pulse Ox 90 L 03/28/20 04:00 Intake & Output 03/27/20 03/28/20 03/28/20 18:59 06:59 18:59 Intake Total 480 Output Total 225 240 100 Balance 255 -240 -100 Weight 99 kg Intake: Oral 480 Output: Chest Tube Drainage 225 100 Chest Tube Left 225 100 Urine 240 Other: Voiding Method Toilet # Voids 1 - Constitutional General appearance: Present: cooperative, no acute distress - Neck Neck: Present: normal ROM. Absent: lymphadenopathy - Respiratory Details: Lungs sounds diminished bilaterally, coarse on the left side. Respirations even and nonlabored. Currently on room air with oxygen saturation 90-92%. Able to achieve 1250 mL on his incentive spirometry. Left pleural chest tube present continuous wall suction, 150 mL the last 24 hours, no air leak present. - Cardiovascular Details: S1, S2 present. Regular rate and rhythm, sinus rhythm on telemetry. Palpable peripheral pulses bilaterally. No edema present. No calf pain or tenderness noted. - Gastrointestinal Gastrointestinal Comment(s): Abdomen soft, nontender, nondistended. Active bowel sounds present 4 quadrants. Tolerating diet. - Genitourinary Genitourinary Comment(s): Continues to void clear, yellow urine - Integumentary Integumentary Comment(s): Skin is warm and dry with evidence of good perfusion. - Neurologic Neurologic: Present: CNII-XII intact - Musculoskeletal Musculoskeletal: Present: gait normal, strength equal bilaterally - Psychiatric Psychiatric: Present: A&O x's 3 - Allied health notes Allied health notes reviewed: nursing - Labs CBC & Chem 7: 03/28/20 05:40 03/28/20 05:40 Labs: Abnormal Lab Results - Last 24 Hours (Table) 03/27/20 03/27/20 03/28/20 Range/Units 11:38 20:12 05:40 RBC 4.20 L (4.30-5.90) m/uL Hgb 12.3 L (13.0-17.5) gm/dL Hct 38.4 L (39.0-53.0) % Plt Count 542 H (150-450) k/uL Sodium (137-145) mmol/L Glucose (74-99) mg/dL POC Glucose (mg/dL) 114 H 162 H (75-99) mg/dL 03/28/20 03/28/20 Range/Units 05:40 06:13 RBC (4.30-5.90) m/uL Hgb (13.0-17.5) gm/dL Hct (39.0-53.0) % Plt Count (150-450) k/uL Sodium 134 L (137-145) mmol/L Glucose 108 H (74-99) mg/dL POC Glucose (mg/dL) 104 H (75-99) mg/dL - Imaging and Cardiology Chest x-ray: report reviewed, image reviewed Assessment and Plan Assessment: 1. 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 Previous tobacco dependence 3. History of COPD, FEV1 of 1.9, 50% of predicted 4. History of postobstructive pneumonia 5. History of diet controlled type 2 diabetes 6. History of GERD 7. History of hyperlipidemia 8. History of hypertension 9. History of osteoarthritis 10. History of BPH 11. History of chronic low back pain. 12. Postoperative persistent air leak with pneumothorax Plan: 1. Chest tube changed to water seal. Monitor for air leak. If no air leak tomorrow morning and there is no worsening pneumothorax on CXR, we will discontinue the chest tube. 2. Pathology report discussed with patient by Dr. Hernández. Patient will need chemo 4-6 weeks after recovery from surgery. 3. Continue use of incentive spirometry 10x hour while awake. 4. Bronchodilators per pulmonary 5. Increase activity, ambulate in room while on suction 6. Pain management per current medication regimen 7. Continue home meds. 8. GI/DVT prophylaxis 9. Will monitor daily x-rays 10. More recommendations to follow Time with Patient: Greater than 30
[2020-03-28 11:51] LABS: Glucose,Whole Blood 158 mg/dL (75-99)
--- NOTE | 2020-03-28 13:12 | P.PN ---
Subjective Progress Note Date: 03/28/20 Principal diagnosis: Adenocarcinoma of the left lower lobe, status post robotic-assisted thoracoscopic left lower lobectomy 72-year-old male patient being seen in follow-up today. The patient is postop day #4 following his robotic-assisted left lower lobe resection for large left lower lobe mass. The patient's underlying emphysema with bullous changes as noted on his preop CAT scan of the chest. Postop he developed a left-sided pneumothorax and persistent air leak. The patient has another 10-15% pneumothorax on today's chest x-ray was noted on the morning chest film. No respiratory distress. He is on room air oxygen. His surgical wound site is dry clean and intact. He is hemodynamic is stable. Is able to speak of. This is an is using his incentive spirometer aggressively. Pain is under good control for now. He has no specific complaints. On 03/25/2020 patient seen in follow-up on selective care unit, he status post robotic-assisted left lower lobe resection for large left lower lobe mass, and today's postoperative day #5, he is on on 2 L of oxygen had pulse ox is 95%. 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 Today's c hest x-ray shows improving left sided pneumothorax. Pain is reasonably controlled. It is not been reviewed, white blood cell count of 9.3, hemoglobin is 12.3, electrolytes and renal profile is unremarkable. On 03/28/2020 patient seen in follow-up on selective care unit, less chest tube is in place, and today's chest x-ray shows improving left-sided pneumothorax, and better expansion of the left lung, patient is on room air, with a pulse ox of 95%, his left chest tube has been placed to waterseal by cardiothoracic surgery, no acute events overnight, hemodynamically stable, pain is well contr olled, patient is working on incentive spirometer. His surgical biopsy came back positive for adenocarcinoma of the left lower lobe invasive, moderately to poorly differentiated, with L 11 lymph nodes positive for metastatic pulmonary adenocarcinoma. No worsening dyspnea, no compressive chest pain, today's labs have been reviewed, with blood cell count is 9.0, hemoglobin is 12.3, sodium is 134, the rest of the left lites were within normal limits, renal profile was within normal limits Objective - Vital Signs Vital signs: Vital Signs Temp 97.8 F 03/28/20 08:00 Pulse 80 03/28/20 12:26 Resp 16 03/28/20 11:49 BP 135/72 03/28/20 11:49 Pulse Ox 95 03/28/20 11:49 Intake & Output 03/27/20 03/28/20 03/28/20 18:59 06:59 18:59 Intake Total 480 240 Output Total 225 240 100 Balance 255 -240 140 Weight 99 kg Intake: Oral 480 240 Output: Chest Tube Drainage 225 100 Chest Tube Left 225 100 Urine 240 Other: Voiding Method Toilet # Voids 1 - Exam GENERAL EXAM: Alert, very pleasant, 74-year-old white male on room air with pulse ox of 95%, and a left-sided chest tube in place to waterseal and no evidence of leak comfortable in no apparent distress. HEAD: Normocephalic/atraumatic. EYES: Normal reaction of pupils, equal size. Conjunctiva pink, sclera white. NOSE: Clear with pink turbinates. THROAT: No erythema or exudates. NECK: No masses, no JVD, no thyroid enlargement, no adenopathy. CHEST: No chest wall deformity. Symmetrical expansion. Left-sided chest tube in place, to waterseal without a leak LUNGS: no crackles, wheeze, rhonchi or dullness. Diminished breath sounds on the left side CVS: Regular rate and rhythm, normal S1 and S2, no gallops, no murmurs, no rubs ABDOMEN: Soft, nontender. No hepatosplenomegaly, normal bowel sounds, no guarding or rigidity. EXTREMITIES: No clubbing, no edema, no cyanosis, 2+ pulses and upper and lower extremities. MUSCULOSKELETAL: Muscle strength and tone normal. SPINE: No scoliosis or deformity SKIN: No rashes CENTRAL NERVOUS SYSTEM: Alert and oriented -3. No focal deficits, tone is normal in all 4 extremities. PSYCHIATRIC: Alert and oriented -3. Appropriate affect. Intact judgment and insight. - Labs CBC & Chem 7: 03/28/20 05:40 03/28/20 05:40 Labs: Abnormal Lab Results - Last 24 Hours (Table) 03/27/20 03/28/20 03/28/20 Range/Units 20:12 05:40 05:40 RBC 4.20 L (4.30-5.90) m/uL Hgb 12.3 L (13.0-17.5) gm/dL Hct 38.4 L (39.0-53.0) % Plt Count 542 H (150-450) k/uL Sodium 134 L (137-145) mmol/L Glucose 108 H (74-99) mg/dL POC Glucose (mg/dL) 162 H (75-99) mg/dL 03/28/20 03/28/20 Range/Units 06:13 11:50 RBC (4.30-5.90) m/uL Hgb (13.0-17.5) gm/dL Hct (39.0-53.0) % Plt Count (150-450) k/uL Sodium (137-145) mmol/L Glucose (74-99) mg/dL POC Glucose (mg/dL) 104 H 158 H (75-99) mg/dL Assessment and Plan Plan: Assessment: 1 Pulmonary adenocarcinoma of the left lower lobe invasive, moderately to poorly differentiated, with L 11 lymph nodes positive for metastatic pulmonary adenocarcinoma, status post robotic-assisted thoracoscopic left lower lobectomy with mediastinal lymph node biopsies. Postoperative day #6. There is interval reduction in the size of the left-sided pneumothorax now measuring at 5% on today's chest x-ray on 03/28/2020, and left sided chest tube has been placed to waterseal by CT surgery 2 History of chronic obstructive pulmonary disease, currently inactive and stable 3 Diabetes mellitus, type II 4 Hyperlipidemia 5 Recent hypertension. 6 History of cholecystitis. Plan: Today's chest x-ray has been reviewed showing improving left-sided pneumothorax now measuring at 5%, chest tube has been placed to waterseal, there is no evidence of air leak, repeat chest x-ray in the morning, we'll continue to closely follow with CT surgery, hemodynamically stable, no worsening dyspnea, pain is reasonably controlled, continue encouraging deep breathing and coughing. I performed a history & physical examination of the patient and discussed their management with my nurse practitioner, Rima Huber. I reviewed the nurse practitioner's note and agree with the documented findings and plan of care. Lung sounds are positive for diminished breath sounds on the left side. The fi ndings and the impression was discussed with the patient. I attest to the documentation by the nurse practitioner. Time with Patient: Less than 30
[2020-03-28 16:08] VITALS: RESP 18
[2020-03-28 17:39] LABS: Glucose,Whole Blood 127 mg/dL (75-99)
[2020-03-28] MEDS: traMADol 50 MG TAB PO PRN (19:45)
[2020-03-28 20:27] LABS: Glucose,Whole Blood 160 mg/dL (75-99)
[2020-03-29] MEDS: traMADol 50 MG TAB PO PRN (05:22)
[2020-03-29] MEDS: INSULIN ASPART (NovoLOG) 100 UNIT/ML VIAL SQ SCH ×2 (06:17→12:22)
[2020-03-29 06:19] LABS: Glucose,Whole Blood 125 mg/dL (75-99)
--- NOTE | 2020-03-29 07:47 | XR ---
EXAMINATION TYPE: XR chest 1V portable DATE OF EXAM: 03/29/2020 COMPARISON: 03/28/2020 HISTORY: Post cholectomy lung cancer TECHNIQUE: Single frontal view of the chest is obtained. FINDINGS: Left-sided chest tube seen with approximate 5-10% pneumothorax. Elevated left hemidiaphrag m with basilar consolidation stable. Underlying COPD. Heart size stable. IMPRESSION: 1. Approximately 5-10% left apical pneumothorax similar in appearance to the prior exam. 2. Stable elevation left hemidiaphragm, COPD and left basilar infiltrate.
[2020-03-29] MEDS: SYMBICORT 80-4.5 MCG INHALER INHALATION SCH (07:50)
[2020-03-29] MEDS: IPRATROPIUM-ALBUTEROL 3 ML NEB IH SCH ×2 (07:50→11:22)
[2020-03-29] MEDS: HEPARIN SODIUM,PORCINE 5,000 UNIT/ML 1 ML VIAL SQ SCH (08:49)
[2020-03-29] MEDS: atenoloL 50 MG TAB PO SCH (08:50)
[2020-03-29] MEDS: ASPIRIN 81 MG PO SCH (08:50)
[2020-03-29] MEDS: FINASTERIDE 5 MG TAB PO SCH (08:50)
[2020-03-29] MEDS: SENNOSIDES 8.6 MG TAB PO SCH (08:51)
[2020-03-29] MEDS: TAMSULOSIN 0.4 MG CAP.ER.24H PO SCH (08:51)
--- NOTE | 2020-03-29 10:35 | P.PN ---
Subjective Progress Note Date: 03/29/20 Principal diagnosis: Adenocarcinoma left lower lobe lung. Previous medical history of COPD, postobstructive pneumonia, diet controlled type 2 diabetes, GERD, osteoarthritis, hyperlipidemia, hypertension, BPH, choleysystitis S/P choleycystectomy, and chronic low back pain. POD #9 Robotic-assisted thoracoscopic left lower lobectomy with mediastinal lymph node dissection Postoperative persistent air leak with pneumothorax, expected The patient is currently sitting up in the recliner on the cardiac stepdown unit in no acute distress. He denies any pain. Left pleural chest tube to waterseal greater than 24 hours with no air leak present. Small residual pneumothorax on CXR this AM unchanged from yesterday per radiology read. Patient has been ambulatory in the hallway without difficulty. Objective - Vital Signs Vital signs: Vital Signs Temp 98.0 F 03/29/20 04:00 Pulse 80 03/29/20 08:03 Resp 18 03/29/20 04:00 BP 125/69 03/29/20 04:00 Pulse Ox 92 L 03/29/20 04:00 Intake & Output 03/28/20 03/29/20 03/29/20 18:59 06:59 18:59 Intake Total 720 300 Output Total 100 40 Balance 620 260 Weight 100.3 kg Intake: Oral 720 300 Output: Chest Tube Drainage 100 30 Chest Tube Left 100 30 Drainage 10 Left Chest 10 Other: Voiding Method Toilet # Voids 3 - Constitutional General appearance: Present: cooperative, no acute distress - Respiratory Details: Lungs sounds diminished bilaterally. Respirations even and nonlabored. Currently on room air with oxygen saturation 92%. Able to achieve 1250 mL on his incentive spirometry. Left pleural chest tube present to waterseal, 130 mL the last 24 hours, no air leak present. - Cardiovascular Details: S1, S2 present. Regular rate and rhythm, sinus rhythm on telemetry. Palpable peripheral pulses bilaterally. No edema present. No calf pain or tenderness noted. - Gastrointestinal Gastrointestinal Comment(s): Abdomen soft, nontender, nondistended. Active bowel sounds present 4 quadra nts. Tolerating diet. - Genitourinary Genitourinary Comment(s): Continues to void clear, yellow urine - Integumentary Integumentary Comment(s): Skin is warm and dry with evidence of good perfusion. Surgical incisions are well approximated without redness or drainage - Neurologic Neurologic: Present: CNII-XII intact - Musculoskeletal Musculoskeletal: Present: gait normal, strength equal bilaterally - Psychiatric Psychiatric: Present: A&O x's 3, appropriate affect, intact judgment & insight - Allied health notes Allied health notes reviewed: nursing - Labs CBC & Chem 7: 03/28/20 05:40 03/28/20 05:40 Labs: Abnormal Lab Results - Last 24 Hours (Table) 03/28/20 03/28/20 03/28/20 Range/Units 11:50 17:03 20:25 POC Glucose (mg/dL) 158 H 127 H 160 H (75-99) mg/dL 03/29/20 Range/Units 06:17 POC Glucose (mg/dL) 125 H (75-99) mg/dL - Imaging and Cardiology Chest x-ray: report reviewed, image reviewed Assessment and Plan Assessment: 1. 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 Previous tobacco dependence 3. History of COPD, FEV1 of 1.9, 50% of predicted 4. History of postobstructive pneumonia 5. History of diet controlled type 2 diabetes 6. History of GERD 7. History of hyperlipidemia 8. History of hypertension 9. History of osteoarthritis 10. History of BPH 11. History of chronic low back pain. 12. Postoperative persistent air leak with pneumothorax Plan: 1. Chest tube discontinued. Will repeat chest x-ray at noon. If stable will discharge to home. Follow-up appointments already made and discharge instructions placed on the discharge plan. 2. Pathology report discussed with patient by Dr. Hernández. Patient will need chemo 4-6 weeks after recovery from surgery. 3. Continue use of incentive spirometry 10x hour while awake. 4. Bronchodilators per pulmonary 5. Increase activity, ambulate as tolerated 6. Pain management per current medication regimen 7. Continue home meds. 8. GI/DVT prophylaxis 9. More recommendations to follow Time with Patient: Greater than 30
--- NOTE | 2020-03-29 12:03 | XR ---
EXAMINATION TYPE: XR chest 2V DATE OF EXAM: 03/29/2020 COMPARISON: 820 TECHNIQUE: PA and lateral views submitted. HISTORY: Chest tube removal FINDINGS: Chest tube is been removed and there is persistent consolidation at the left lung base with small eff usion and elevated hemidiaphragm. Stable 510% left apical pneumothorax. Right lung clear. Heart size normal. Underlying COPD suspected. IMPRESSION: 1. Stable approximate 5-10% left pneumothorax. 2. Left hemidiaphragm paresis with basilar infiltrate.
--- NOTE | 2020-03-29 13:14 | P.PN ---
Subjective Progress Note Date: 03/29/20 Principal diagnosis: Adenocarcinoma of the left lower lobe This is a very pleasant 74-year-old gentleman who follows with Dr. Painter as his primary care provider. He also follows with Dr. Torres in our office and was found to have adenocarcinoma of the left lower lobe. He was admitted on 03/20/2020 for an elective robotic-assisted thoracoscopic left lower lobectomy with mediastinal lymph node dissection. He is seen today in follow-up on the selective care unit. He is currently sitting up in a chair at the bedside. He is awake and alert in no acute distress. No worsening shortness of breath, cough or congestion. Left-sided chest tube remains in place. There is still a positive air leak. [facility] Today's chest x-ray reveals a tiny residual left apical pneumothorax. He is maintaining good O2 saturations in the 90s on 2 L/m per nasal cannula. He is working well with the incentive spirometer. He is afebrile. Hemodynamically stable. White count 9.7. Hemoglobin 12.3. Serum 133. Potassium 4.7. Creatinine 1.20. He is continued on DuoNeb inhalations, Symbicort. Heparin for DVT prophylaxis. The patient is seen today 03/26/2020 in follow-up on the selective care unit. This is postoperative day #6. He is currently sitting up in a chair at the bedside. Awake and alert in no acute distress. Left chest tube remains in place with a consistent air leak. Chest x-ray continues to show some left-sided pneumothorax. Stable. He is maintaining good O2 saturations in the 90s on room air. She's afebrile. Hemodynamically stable. He remains on DuoNeb inhalations and Symbicort. He is working well with the incentive spirometer. He's been up ambulating without any significant shortness of breath. The patient is seen today 03/27/2020 in follow-up on the selective care unit. He is awake and alert in no acute distress. Currently sitting up in a chair at the bedside. Postoperative day #7. Left chest tube remains in place with the air leak still present. Chest x-ray shows small stable left pneumothorax. He continues to work well with the incentive spirometer. Up ambulating in room without any worsening shortness of breath. The patient is seen today 03/29/2020 in follow-up on the selective care unit. No shortness of breath cough or congestion. He is maintaining good O2 saturation in the 90s on room air. Morning chest x-ray revealed stable 5-10% left apical pneumothorax. Chest tube was discontinued in follow-up chest x-ray continues to reveal a stable 5-10% left pneumothorax. He is anxious to go home. Objective - Vital Signs Vital signs: Vital Signs Temp 98.0 F 03/29/20 04:00 Pulse 80 03/29/20 08:03 Resp 18 03/29/20 04:00 BP 125/69 03/29/20 04:00 Pulse Ox 92 L 03/29/20 04:00 Intake & Output 03/28/20 03/29/20 03/29/20 18:59 06:59 18:59 Intake Total 720 300 Output Total 100 40 Balance 620 260 Weight 100.3 kg Intake: Oral 720 300 Output: Chest Tube Drainage 100 30 Chest Tube Left 100 30 Drainage 10 Left Chest 10 Other: Voiding Method Toilet # Voids 3 3 - Exam GENERAL EXAM: Alert, very pleasant 74-year-old gentleman, up in a chair at the bedside, O2 saturation 90s on room air, comfortable in no apparent distress. HEAD: Normocephalic. EYES: Normal reaction of pupils, equal size. NOSE: Clear with pink turbinates. THROAT: No erythema or exudates. NECK: No masses, no JVD. CHEST: No chest wall deformity. Left sided chest tube removed. LUNGS: Equal air entry with diminished breath sounds at the left base. CVS: S1 and S2 normal with no audible murmur, regular rhythm. ABDOMEN: No hepatosplenomegaly, normal bowel sounds, no guarding or rigidity. SPINE: No scoliosis or deformity SKIN: No rashes CENTRAL NERVOUS SYSTEM: No focal deficits, tone is normal in all 4 extremities. EXTREMITIES: There is no peripheral edema. No clubbing, no cyanosis. Peripheral pulses are intact. - Labs CBC & Chem 7: 03/28/20 05:40 03/28/20 05:40 Labs: Abnormal Lab Results - Last 24 Hours (Table) 03/28/20 03/28/20 03/29/20 Range/Units 17:03 20:25 06:17 POC Glucose (mg/dL) 127 H 160 H 125 H (75-99) mg/dL Assessment and Plan Assessment: 1 Adenocarcinoma of the left lower lobe, status post robotic-assisted thoracoscopic left lower lobectomy with mediastinal lymph node biopsies. Pa thology positive for metastatic pulmonary adenocarcinoma 2 History of chronic obstructive pulmonary disease, currently inactive and stable 3 Diabetes mellitus, type II 4 Hyperlipidemia 5 Recent hypertension. 6 History of cholecystitis. Plan: The patient was seen and evaluated by Dr. Randall Chest x-ray removed. Follow-up chest x-ray reveals a stable 5-10% left apical pneumothorax Home once cleared by cardiothoracic Follow-up in the office in 1-2 weeks' time I, the cosigning physician, performed a history & physical examination of the patient. Lungs sounds diminished left lung base. Maintaining good O2 saturations in the 90s on room air. I discussed the assessment and plan of care with my nurse practitioner, Meera Tracey. I attest to the above note as dictated by her.
[2020-03-29 17:09] VITALS: BP 139/72; PULSE 91; TEMP 97.7
== END 2020-03-29 12:54 | disposition home or self-care (01) | DRG 163 ==
LOC: 2ORMAIN 05:44 → 2SICU 11:55 → 3SCARD 03-21 00:39
PROVIDERS: ADMIT Thoracic Surgery (Cardiothoracic Vascular Surgery); ATTEND Thoracic Surgery (Cardiothoracic Vascular Surgery)
PROC: 07B74ZZ Excision of Thorax Lymphatic, Percutaneous Endoscopic Approach (ICD-10-PCS; principal; 2020-03-20 07:30)
PROC: 8E0W4CZ Robotic Assisted Procedure of Trunk Region, Percutaneous Endoscopic Approach (ICD-10-PCS; principal; 2020-03-20 07:30)
PROC: 0BTJ4ZZ Resection of Left Lower Lung Lobe, Percutaneous Endoscopic Approach (ICD-10-PCS; principal; 2020-03-20 07:30)
DX: C34.32 Malignant neoplasm of lower lobe, left bronchus or lung (principal); J18.9 Pneumonia, unspecified organism; J93.82 Other air leak; J93.83 Other pneumothorax; C77.1 Secondary and unspecified malignant neoplasm of intrathoracic lymph nodes; E11.9 Type 2 diabetes mellitus without complications; J43.9 Emphysema, unspecified; I10 Essential (primary) hypertension; E78.5 Hyperlipidemia, unspecified; M19.90 Unspecified osteoarthritis, unspecified site; N40.0 Benign prostatic hyperplasia without lower urinary tract symptoms; G89.29 Other chronic pain; M54.5 Low back pain; K21.9 Gastro-esophageal reflux disease without esophagitis; Z79.82 Long term (current) use of aspirin; Z79.899 Other long term (current) drug therapy; Z87.01 Personal history of pneumonia (recurrent); Z87.19 Personal history of other diseases of the digestive system; Z90.49 Acquired absence of other specified parts of digestive tract; Z98.890 Other specified postprocedural states; Z87.891 Personal history of nicotine dependence; Z88.0 Allergy status to penicillin; Z88.8 Allergy status to other drugs, medicaments and biological substances; Z82.49 Family history of ischemic heart disease and other diseases of the circulatory system
CPT/HCPCS: 71045; 71046; 80048; 85025; 85027; 86850; 86900; 86901; 88108; 88305; 88309; 88331; 88341; 88342; 94640; 94760

== ENCOUNTER → 2020-07-04 | Outpatient (CLI) | payer MEDICARE ==
--- NOTE | 2020-07-04 12:06 | CT ---
EXAMINATION TYPE: CT chest w con DATE OF EXAM: 07/04/2020 COMPARISON: CT chest 02/25/2020, PET/CT 03/08/2020, chest x-ray dated 04/11/2020 HISTORY: Lung cancer CT DLP: 638.1 mGycm Automated exposure control for dose reduction was used. CONTRAST: CT scan of the chest is performed with IV Contrast, patient injected with 100 mL of Isovue 300. FINDINGS: LUNGS: The fluid at the left lung base may be chronic, postop changes are noted. Emphysematous change s are present within the lungs. Small amount of fluid attenuation present deep to the upper ribs ante riorly may be post operative. Nodular density measuring 7 mm the right upper lobe is thought to be al max the fissure and not likely to be clinically significant, was noted on prior exam. The tracheobron chial tree is patent. MEDIASTINUM: There are no greater than 1 cm hilar or mediastinal lymph nodes. No pericardial effusi on is seen. AORTA: No additional significant abnormality is seen. OTHER: Patient is post cholecystectomy. No evident adrenal mass. Scattered calcifications present wi thin the head of the pancreas.. IMPRESSION: Postop changes. Emphysema. Metastatic disease not thought to be present, possible small pleural effusion or chronic pleural reaction left chest
== END | disposition home or self-care (01) ==
LOC: RADCTMAIN 08:29
PROVIDERS: ATTEND Internal Medicine Hematology & Oncology
DX: J43.9 Emphysema, unspecified (principal); C34.32 Malignant neoplasm of lower lobe, left bronchus or lung; Z98.890 Other specified postprocedural states; Z88.0 Allergy status to penicillin
CPT/HCPCS: 82565; 84520; 71260; 36415; Q9967

== ENCOUNTER 2021-01-13 06:58 | Day surgery (SDC) | payer MEDICARE ==
[2021-01-09 10:44] VITALS: BMI 28.8
[2021-01-13] MEDS ORDERED: LACTATED RINGERS 1,000 ML IV SCH (07:28)
[2021-01-13 07:42] VITALS: TEMP 97.8
[2021-01-13] MEDS ORDERED: methylPREDNISolone ACETATE 40 MG/ML 1 ML VIAL ONE (07:59)
[2021-01-13] MEDS ORDERED: MIDAZOLAM 2 MG/2 ML VIAL ONE (07:59)
[2021-01-13] MEDS ORDERED: fentaNYL (PF) 50 MCG/ML 2 ML AMP ONE (07:59)
[2021-01-13] MEDS ORDERED: ROPIVACAINE 5MG/ML 20ML VIAL ONE (07:59)
[2021-01-13] MEDS ORDERED: IV FLUID CONTINUATION 1,000 ML IV ONE (08:16)
--- NOTE | 2021-01-13 08:16 | P.PCN ---
Date of Procedure: 01/13/21 Procedure(s) Performed: Procedure= Left sacroiliac joints steroid injection under fluoroscopy guidance (fluoroscopy image stored on file in the radiology Department ) Preoperative diagnosis= 1-sacroiliitis 2-lumbar spinal stenosis 3-lumbar radiculopathy Postoperative diagnosis=Same as preop Diagnosis . Complication = none Condition= stable Anesthesia= moderate sedation with intravenous Versed 2 mg , and fentanyl 100 micrograms . Indication for the procedure= patient complaining of low back pain , examination was positive for severe tenderness over the sacroiliac joints bilaterally and patient diagnosed with sacroiliitis, for this reason he/ she was good candidate for sacroiliac joint steroid injection. Description of the procedure= procedure risk and benefits discussed with the patient, including but not limited, risk of infection and bleeding, and ALLERGIC reaction to the medication and not complete pain relief and patient agreed with the preceding patient taken to the operating room, placed in prone position or standard monitors applied to the patient then after induction of anesthesia back prepped with chlorhexidine 3 times , Then the left sacroiliac joint steroid injection done under strict sterile technique local infiltration of the skin and subcu interstitial at the location of the left sacroiliac joint then a 22-gauge Quincke Needle advanced slowly under fluoroscopy time placed in the left sacroiliac joint, needle placement confirmed with AP and oblique and lateral view then after appropriate needle placement confirmed and after negative aspiration 0.5% Ropivacaine 4 mL and 40 mg of Depo-Medrol injected in the left sacroiliac joint after negative aspirati on patient tolerated the procedure well that any complications and she will follow up in clinic 3 weeks
[2021-01-13 08:20] VITALS: RESP 18
--- NOTE | 2021-01-13 08:25 | FL ---
EXAMINATION TYPE: FL guided pain mgmt statistic DATE OF EXAM: 01/13/2021 CLINICAL HISTORY: Sacroiliac joint pain. TECHNIQUE: Fluoroscopy. COMPARISON: None. FINDINGS: Fluoroscopic guidance was provided during pain relief procedure performed by Dr. Fallon . A total of 3 seconds of fluoroscopic time was utilized during the procedure and 1 spot images are acquired. Single image acquired shows needle localization at the inferior sacroiliac joint level. IMPRESSION: As Above.
[2021-01-13 08:35] VITALS: BP 150/67; PULSE 78
== END 2021-01-13 08:49 | disposition home or self-care (01) ==
LOC: ORPAIN 06:58
PROVIDERS: ATTEND Specialist
DX: M48.061 Spinal stenosis, lumbar region without neurogenic claudication (principal); M46.1 Sacroiliitis, not elsewhere classified; M54.16 Radiculopathy, lumbar region
CPT/HCPCS: J2250; J1030; J3010; J2795; G0260; 27096

== ENCOUNTER 2021-01-27 07:47 | Day surgery (SDC) | payer MEDICARE ==
[2021-01-23 14:48] VITALS: BMI 28.8
[~2021-01-27 07:47] MED LIST changes: -DEXAMETHASONE SOD PHOSPHATE 10 MG/ML 1 ML VIAL IV ONE; -HYDROmorphone 0.5 MG/0.5 ML SYRINGE IVP PRN; -LIDOCAINE 1% (10MG/ML) FOR IV START INTRADERMA PRN; -MIDAZOLAM 2 MG/2 ML VIAL IV PRN; -ONDANSETRON 4 MG/2 ML VIAL IVP ONE; -fentaNYL (PF) 50 MCG/ML 2 ML AMP IVP PRN
[2021-01-27] MEDS ORDERED: LACTATED RINGERS 1,000 ML IV ONE (08:15)
[2021-01-27] MEDS ORDERED: LIDOCAINE 1% (10MG/ML) FOR IV START INTRADERMA ONE (08:15)
[2021-01-27 08:16] VITALS: RESP 16; TEMP 97.3
[2021-01-27] MEDS ORDERED: methylPREDNISolone ACETATE 40 MG/ML 1 ML VIAL ONE (08:38)
[2021-01-27] MEDS ORDERED: IOPAMIDOL M200 10 ML VIAL ONE (08:38)
[2021-01-27] MEDS ORDERED: MIDAZOLAM 2 MG/2 ML VIAL ONE (08:38)
[2021-01-27] MEDS ORDERED: fentaNYL (PF) 50 MCG/ML 2 ML AMP ONE (08:38)
[2021-01-27] MEDS ORDERED: IV FLUID CONTINUATION 600 ML IV ONE (09:02)
--- NOTE | 2021-01-27 09:16 | FL ---
Fluoroscopy INDICATION: Pain FINDINGS: Fluoroscopy time: 5 seconds. Images obtained: 1. IMPRESSIONS: 1. Documentation of fluoroscopy.
--- NOTE | 2021-01-27 09:42 | P.PCN ---
Date of Procedure: 01/27/21 Procedure(s) Performed: PREOPERATIVE DIAGNOSIS: 1-Lumbar radiculopathy . 2-lumbar degenerative disc disease. 3-lumbar foraminal stenosis POSTOPERATIVE DIAGNOSIS: Same as preoperative diagnoses. PROCEDURE 1. Transforaminal epidural steroid injection under fluoroscopic guidance at left L2-3 level. (Fluoroscopy images stored on file in the radiology Department ) 2. Lumbar epidurogram . ANESTHESIA: Local with 1% lidocaine 3 ml , moderate sedation with intravenous Versed 2 mg and fentanyle 50 micrograms. EBL: Minimal PROCEDURE INDICATION: The patient with low back pain and radiculopathy symptoms unresponsive to conservative treatment. PROCEDURE DESCRIPTION / TECHNIQUE: The patient was seen and identified in the preoperative area. Risks, benefits, complications, and alternatives were discussed with the patient. The patient agreed to proceed with the procedure and signed the consent. IV was started, and vital signs were stable. Patient was taken to the OR and time out was completed. The patient was placed in the prone position on procedure table and a pillow was placed under the abdomen to reduce lumbar lordosis. The lumbosacral area was prepped and draped in the usual sterile fashion. Critical pause was taken. Vital signs were closely monitored during the procedure. Conscious sedation was used during the procedure to decrease patient s anxiety. Using oblique fluoroscopy, the chin of the ``Juan dog at left L2-3 level was identified, and the skin and deeper tissues just below was localized with 1% lidocaine. Subsequently, a 22-gauge 3.5-inch spinal needle was advanced under a tunneled view fluoroscopic guidance just underneath the chin of the ``Juan dog at the left L2-3 Under lateral fluoroscopy, the needle was then advanced to the posterior border of the interforaminal space. After negative aspiration of CSF and blood and with no paresthesias, 1 mL Isovue 200 contrast dye was injected excellent epidurogram and outlining of the nerve root Subsequently, 3 mL of block solution containing 40 mg Depo-Medrol and 2 mL of 0.9% normal saline PF was injected. Needle was removed . At the end of the procedure, skin was cleansed, and bandages were applied. COMPLICATIONS:none DISPOSITION / PLANS: The patient was placed in a supine position and transferred to the recovery area in a stable condition for observation. There was no evidence of lower extremity motor or sensory deficit after the procedure. Patient was discharged from the recovery room after meeting discharge criteria. Home discharge instructions were given to the patient by the staff. The patient was reexamined prior to discharge.
[2021-01-27 09:44] VITALS: BP 123/79; PULSE 61
== END 2021-01-27 09:40 | disposition home or self-care (01) ==
LOC: ORPAIN 07:47
PROVIDERS: ATTEND Specialist
DX: M51.16 Intervertebral disc disorders with radiculopathy, lumbar region (principal); M48.061 Spinal stenosis, lumbar region without neurogenic claudication; Z88.0 Allergy status to penicillin
CPT/HCPCS: 64483; J2250; J1030; J3010; Q9966; 99152

== ENCOUNTER → 2021-01-29 | Outpatient (CLI) | payer MEDICARE ==
[2021-01-29 11:34] LABS: HCT 44.9 % (39.0-53.0); HGB 14.6 gm/dL (13.0-17.5); MCHC 32.5 g/dL (31.0-37.0); MCV 92.2 fL (80.0-100.0); Mean Platelet Volume 7.5; Platelet Count 336 k/uL (150-450); RBC 4.87 m/uL (4.30-5.90); RDW 13.3 % (11.5-15.5); WBC 9.8 k/uL (3.8-10.6)
[2021-01-29 11:50] LABS: Appearance,Urine Clear (Clear); Bilirubin,Urine Negative (Negative); Blood,Urine Small (Negative); Color,Urine Yellow; Glucose,Urine (UA) Negative (Negative); Hyaline Casts,Urine 8 /lpf (0-2); Ketones,Urine Negative (Negative); Leukocyte Esterase,Urine Negative (Negative); Mucus,Urine Rare /hpf; Nitrite,Urine Negative (Negative); PH, Urine 5.5 (5.0-8.0); Protein,Urine 1+ (Negative); RBC,Urine 2 /hpf (0-5); Specific Gravity,Urine 1.018 (1.001-1.035); Urobilinogen,Urine <2.0 mg/dL (<2.0); WBC,Urine 2 /hpf (0-5)
--- NOTE | 2021-01-29 13:34 | CT ---
EXAMINATION TYPE: CT chest w con DATE OF EXAM: 01/29/2021 COMPARISON: CT chest July 04, 2020 and older studies. HISTORY: Lung Cancer status post left-sided partial pneumonectomy. CT DLP: 684 mGycm. Automated Exposure Control for Dose Reduction was Utilized. TECHNIQUE: CT scan of the thorax is performed following with IV Contrast, patient injected with 80 m L of Isovue 300. FINDINGS: LUNGS: Background moderate underlying emphysematous changes greatest in upper lungs is redemonstrated . Postsurgical change left hilar level with posterior inferior extension is redemonstrated. Persisten t tiny amount of pleural thickening and/or fluid with mild left basilar linear scarring and left-side d volume loss. Nearly completely resolved pleural fluid in the left lung base. Mild parenchymal scarr ing anterior right lung base. Slightly less prominent 5 x 3 mm nodule anterior right mid lung axial i mage 29. Stable additional smaller nodules largest subpleural region anterolateral right midlung catracho uring 6 mm coronal image 29. No new or enlarging nodule. MEDIASTINUM: There are no new greater than 1 cm hilar or mediastinal lymph nodes. No cardiomegaly o r pericardial effusion is seen. 4 vessel origin from aortic arch which is normal variant. OTHER: Cholecystectomy clips redemonstrated. Slight scoliotic curvature in the lumbar spine is partia lly imaged. IMPRESSION: No new suspicious mass or adenopathy to suggest active neoplastic recurrence. Moderate em physematous change with posttreatment change left lung redemonstrated.
[2021-01-29 18:42] LABS: Prostate Specific Antigen 1.9 ng/mL (0.0-6.5)
[2021-01-29 18:55] LABS: Hemoglobin A1C 6.8 % (4.0-6.0)
[2021-01-30 01:42] LABS: Urine Creatinine 123.6 mg/dL
== END | disposition home or self-care (01) ==
LOC: RADCTMAIN 09:49
PROVIDERS: ATTEND Internal Medicine Hematology & Oncology
DX: J43.9 Emphysema, unspecified (principal); Z85.118 Personal history of other malignant neoplasm of bronchus and lung
CPT/HCPCS: 84153; 82465; 83718; 82565; 84478; 84520; 85027; 81001; 82043; 82570; 83036; 71260; 36415; Q9967

== ENCOUNTER 2021-03-17 12:28 | Day surgery (SDC) | payer MEDICARE ==
[2021-03-13 15:12] VITALS: BMI 28.2
[2021-03-17 13:03] LABS: Glucose,Whole Blood 123 mg/dL (75-99)
[2021-03-17 13:04] VITALS: RESP 16; TEMP 97.9
[2021-03-17] MEDS ORDERED: TRIAMCINOLONE ACETONIDE 40 MG/ML 1 ML VIAL ONE (13:06)
[2021-03-17] MEDS ORDERED: ROPIVACAINE 5MG/ML 20ML VIAL ONE (13:06)
--- NOTE | 2021-03-17 13:16 | P.PCN ---
Date of Procedure: 03/17/21 Surgeon: Haleigh Whitley Pathology: none sent Condition: stable Disposition: PACU Description of Procedure: Preoperative diagnoses= sacroiliac joint dysfunction and sacroiliitis on the ri ght side Postoperative diagnoses= same as preoperative diagnosis. Procedure=Right sacroiliac joint steroid injection under fluoroscopic guidance. Anesthesia= local anesthesia only with lidocaine 1% Estimated blood loss=minimal. Procedure indication= the patient had a history of severe chronic low back pain, diagnosed with sacroiliitis and lumbar sacral facet arthropathy unresponsive to conservative treatment. Procedure description= the patient was seen and identified in the preoperative holding area, risks and benefits and alternative of the procedure and possible c omplications discussed with the patient, patient signed the consent. an IV was started, and vital signs were monitored and were stable throughout the procedure, patient was placed in the prone position or table and the lumbosacral area was prepped and draped with a sterile fashion, vital signs were closely monitored during the procedure.The sacroiliac joint was identified on the AP view of fluoroscopy then the C-arm was tilted to the contralateral oblique position to superimpose the anterior and posterior joint lines on each other and to have a unified joint line with the target point at the inferior one third of this line. I used 22-gauge 3-1/2 inch Quincke spinal needle for this procedure and after getting into the sacroiliac joint I injected 40 mg of Kenalog +2 MLS of Ropivacaine 0.5%. Patient tolerated the procedure well without any complication, The patient returned to supine position after the back was cleaned and a Band- Aid applied, the patient transported to recovery room in stable condition and he was monitored for 30 minutes before she was discharged home in stable condition . patient will follow up with the pain clinic in a few weeks. A copy of the needle placement was saved to the C-arm machine.
[2021-03-17 13:43] VITALS: BP 125/71; PULSE 59
--- NOTE | 2021-03-17 13:51 | FL ---
EXAMINATION TYPE: FL guided pain mgmt statistic DATE OF EXAM: 03/17/2021 HISTORY: RT SI JT INJ RT SI JOINT INJECTION. [address] CORTES.
== END 2021-03-17 13:51 | disposition home or self-care (01) ==
LOC: ORPAIN 12:28
PROVIDERS: ATTEND Anesthesiology
DX: G89.29 Other chronic pain (principal); M46.1 Sacroiliitis, not elsewhere classified; M53.3 Sacrococcygeal disorders, not elsewhere classified; Z88.0 Allergy status to penicillin; Z88.8 Allergy status to other drugs, medicaments and biological substances
CPT/HCPCS: J3301; J2795; G0260; 27096

== ENCOUNTER 2021-05-21 15:33 | Emergency (ER) | payer MEDICARE ==
[2021-05-21 15:48] VITALS: RESP 18; TEMP 97.7
--- NOTE | 2021-05-21 15:59 | ED ---
General Adult HPI - General Chief complaint: Allergic Reaction Stated complaint: Allergic Reaction Time Seen by Provider: 05/21/21 15:38 Source: patient, EMS, RN notes reviewed Mode of arrival: EMS Limitations: no limitations - History of Present Illness Initial comments: Patient is a pleasant 75-year-old male presenting to the emergency department for ALLERGIC reaction. Patient was outside walking to the mailbox when he started feeling itchy. Patient noticed a rash all over. Patient denies any dyspnea. Patient denies any swelling of the throat or tongue or lips. Patient did go to urgent care and received EpiPen as well as Benadryl. Patient also received a shot of steroids. Patient states symptoms are near resolved at this time and has no complaints. No history of similar symptoms previously. - Related Data Home Medications Medication Instructions Recorded Confirmed Albuterol Sulfate [Proair Hfa] 2 puff INHALATION RT-Q4H PRN 03/29/18 03/13/21 Fluticasone/Salmeterol [Advair 1 puff INHALATION RT-DAILY 03/29/18 03/13/21 250-50 Diskus] Tamsulosin HCl [Flomax] 0.4 mg PO BID 03/29/18 03/17/21 atenoloL [Tenormin] 50 mg PO QAM 03/29/18 03/13/21 lisinopriL [Zestril] 2.5 mg PO DAILY 03/29/18 03/13/21 Rosuvastatin Calcium [Crestor] 5 mg PO MOWEFR 02/20/20 03/13/21 Finasteride [Proscar] 5 mg PO QAM 03/03/20 03/13/21 Acetaminophen Tab [Tylenol] 500 mg PO Q6HR PRN 01/09/21 03/13/21 Ibuprofen [Motrin] 200 mg PO Q8HR PRN 01/09/21 03/13/21 Previous Rx's Medication Instructions Recorded predniSONE [Deltasone] 20 mg PO BID #10 tab 05/21/21 Allergies Allergy/AdvReac Type Severity Reaction Status Date / Time Penicillins Allergy Unknown Verified 03/17/21 12:57 Childhood atorvastatin AdvReac leg cramps Verified 03/17/21 12:57 Review of Systems ROS Statement: Those systems with pertinent positive or pertinent negative responses have been documented in the HPI. ROS Other: All systems not noted in ROS Statement are negative. Constitutional: Denies: fever Eyes: Denies: eye pain ENT: Denies: ear pain Respiratory: Denies: cough, dyspnea Cardiovascular: Denies: chest pain Endocrine: Denies: fatigue Gastrointestinal: Denies: abdominal pain Genitourinary: Denies: dysuria Musculoskeletal: Denies: back pain Skin: Reports: as per HPI, rash Neurological: Denies: weakness Past Medical History Past Medical History: Asthma, COPD, Diabetes Mellitus, GERD/Reflux, Hyperlipidemia, Osteoarthritis (OA), Pneumonia, Prostate Disorder Additional Past Medical History / Comment(s): LEFT LOWER LOBE PNEUMONIA. [place]. BPH. Chronic low back pain. diet control diabetic History of Any Multi-Drug Resistant Organisms: None Reported Past Surgical History: Cholecystectomy, Orthopedic Surgery, Tonsillectomy Additional Past Surgical History / Comment(s): 03/05/20 BRONCHOSCOPY. R rotator cuff surgery. Lumbar epidural injections, colonoscopy Past Anesthesia/Blood Transfusion Reactions: No Reported Reaction Past Psychological History: No Psychological Hx Reported Smoking Status: Former smoker Past Alcohol Use History: Rare Past Drug Use History: None Reported - Past Family History Father Family Medical History: Cancer Additional Family Medical History / Comment(s): Pt cannot recall type of cancer. Mother Family Medical History: Coronary Artery Disease (CAD) General Exam Limitations: no limitations General appearance: alert, in no apparent distress Head exam: Present: atraumatic Eye exam: Present: normal appearance, PERRL ENT exam: Present: normal oropharynx, other (No signs of angioedema) Neck exam: Present: normal inspection Respiratory exam: Present: normal lung sounds bilaterally. Absent: respiratory distress, wheezes Cardiovascular Exam: Present: regular rate, normal rhythm GI/Abdominal exam: Present: soft. Absent: tenderness Extremities exam: Present: normal inspection Neurological exam: Present: alert Psychiatric exam: Present: normal affect, normal mood Skin exam: Present: urticaria (Mild urticaria, mostly of the neck.) Course Vital Signs 05/21/21 15:38 Temperature 97.7 F Pulse Rate 70 Respiratory 18 Rate Blood Pressure 164/77 O2 Sat by Pulse 95 Oximetry Medical Decision Making - Medical Decision Making Patient reevaluated and further improved, near symptom-free. Patient and family updated. Patient advised to avoid lisinopril. Disposition Clinical Impression: Urticaria Disposition: HOME SELF-CARE Condition: Stable Instructions (If sedation given, give patient instructions): Urticaria (ED) Additional Instructions: Please hold lisinopril until follow-up and further discuss with primary care physician. Prescription for steroids have been sent to pharmacy. Please follow-up with primary care physician in the next day or 2 for recheck. [id number] antihistamine should be used for the next 5 days: Benadryl is best however Claritin and Fabiana are acceptable alternatives. Prescriptions: predniSONE [Deltasone] 20 mg PO BID #10 tab Is patient prescribed a controlled substance at d/c from ED?: No Referrals: Kenji Painter DO [Primary Care Provider] - 1-2 days Time of Disposition: 16:37
[2021-05-21 17:00] VITALS: BP 129/67; PULSE 71
== END 2021-05-21 16:57 | disposition home or self-care (01) ==
LOC: EC 15:33
DX: L50.0 Allergic urticaria (principal); E11.9 Type 2 diabetes mellitus without complications; E78.5 Hyperlipidemia, unspecified; J44.9 Chronic obstructive pulmonary disease, unspecified; K21.9 Gastro-esophageal reflux disease without esophagitis; M19.90 Unspecified osteoarthritis, unspecified site; N40.0 Benign prostatic hyperplasia without lower urinary tract symptoms; Z79.1 Long term (current) use of non-steroidal anti-inflammatories (NSAID); Z79.51 Long term (current) use of inhaled steroids; Z79.52 Long term (current) use of systemic steroids; Z79.899 Other long term (current) drug therapy; Z87.891 Personal history of nicotine dependence; Z88.0 Allergy status to penicillin; Z90.49 Acquired absence of other specified parts of digestive tract; Z82.49 Family history of ischemic heart disease and other diseases of the circulatory system
CPT/HCPCS: 99283

== ENCOUNTER → 2021-08-03 | Outpatient (CLI) | payer MEDICARE ==
--- NOTE | 2021-08-03 12:01 | CT ---
EXAMINATION TYPE: CT chest w con DATE OF EXAM: 08/03/2021 COMPARISON: 01/29/2021, 07/04/2020 HISTORY: 75-year-old male C34.32 Lung cancer, Z03.89 observations for mets TECHNIQUE: Contiguous axial scanning of the chest after the administration of 100 mL of Isovue 300. Coronal/sagittal reconstructions performed. CT DLP: 542.6mGycm. Automatic exposure control utilized for a dose reduction. FINDINGS: Heart upper limits of normal in size without pericardial effusion. Ectatic ascending aorta 3.8 cm. Ov erlying configuration to the aortic arch along with very early takeoff of the left vertebral artery d irectly from the aorta. Scattered hypodensities within the thyroid gland measuring up to 7 mm seen pr eviously. No thoracic lymph adenopathy by CT size criteria. Post surgical change of left lower lobectomy redemonstrated. Stable trace left pleural effusion or pl eural parenchymal scarring at the left base and some strandy scarring. Moderate overall centrilobular emphysema. 1.3 cm soft tissue at the left hilum remains unchanged back to at least 07/04/2020. 5 mm posterior right upper lobe pulmonary nodule, axial image 20 previously measured 3 mm on 1 and can be reassessed at 6 month follow-up. 4 mm pulmonary nodule anterior right upper lobe, axial image 20 not well seen previously. 5 mm anterior right upper lobe pulmonary nodule, axial image 29 is unchanged. 7mm subpleural nodule anterior right midlung is unchanged. 3 mm nodule RML axial image 42 is unchanged. Strandy atelectasis in the lower lungs. Tiny hiatal hernia. Visualized upper abdomen shows some stable nodularity measuring up to 2.1 cm at t he pancreatic tail level, probably an adjacent splenule. Cholecystectomy clips. Moderate stool burden . Bones: Mild to moderate degenerative disc disease mid to lower thoracic spine. IMPRESSION: 1. Postoperative changes of previous left lower lobectomy. COPD with moderate emphysema. 2. There is a 5 mm posterior right upper lobe pulmonary nodule that previously measured 3 mm. Reasses s at a 6 month follow-up. The other few scattered pulmonary nodules are unchanged.
== END | disposition home or self-care (01) ==
LOC: RADCTMAIN 07:54
PROVIDERS: ATTEND Internal Medicine Hematology & Oncology
DX: C34.32 Malignant neoplasm of lower lobe, left bronchus or lung (principal); J43.9 Emphysema, unspecified; R91.1 Solitary pulmonary nodule; Z90.2 Acquired absence of lung [part of]
CPT/HCPCS: 82565; 84520; 71260; 36415; Q9967

== ENCOUNTER → 2022-01-27 | Outpatient (CLI) | payer MEDICARE ==
--- NOTE | 2022-01-27 13:17 | CT ---
EXAMINATION TYPE: CT chest w con DATE OF EXAM: 01/27/2022 COMPARISON: CT dated 08/03/2021 HISTORY: f/u lung ca CT DLP: 547.5 mGycm Automated exposure control for dose reduction was used. TECHNIQUE: CT scan of the chest is performed with IV Contrast, patient injected with 66cc mL of Isovue 300. FINDINGS: LUNGS: Stable 5 mm nodule at the posterior aspect right upper lobe as well as the 7 mm pleural-based nodule at the anterior aspect of the middle lobe. Other scattered smaller pulmonary nodules, stable w ithout interval progression. Persistent COPD changes. Stable postsurgical changes in the left lung. N o definite new lung nodule identified. Patent trachea and main bronchi. No pleural effusion. MEDIASTINUM: There are no greater than 1 cm hilar or mediastinal lymph nodes. No gross cardiomegaly. Arterial atherosclerotic calcifications. The pulmonary trunk measures 3.3 cm suggestive of pulmonary hypertension. Small pericardial fluid. OTHER: Enlarged thyroid gland with tiny right thyroid lobe hypodensities. Previous cholecystectomy. Tiny pancreatic head calcifications, likely related to sequela of chronic pancreatitis. Unremarkable adrenals. Stable tiny sclerotic foci in the ribs. No gross aggressive bone lesion. IMPRESSION: Stable pulmonary nodules without interval progression or definite new lung nodule. No evidence of loc al tumor recurrence. No pathologically enlarged lymph nodes in the chest. Other findings as described above.
== END | disposition home or self-care (01) ==
LOC: RADCTMAIN 11:20
PROVIDERS: ATTEND Internal Medicine Hematology & Oncology
DX: C34.91 Malignant neoplasm of unspecified part of right bronchus or lung (principal); R91.8 Other nonspecific abnormal finding of lung field
CPT/HCPCS: 82565; 84520; 71260; 36415; Q9967

== ENCOUNTER → 2022-08-04 | Outpatient (CLI) | payer MEDICARE ==
--- NOTE | 2022-08-04 10:38 | CT ---
EXAMINATION TYPE: CT chest w con DATE OF EXAM: 08/04/2022 COMPARISON: Chest CT January 27, 2022 and older studies. HISTORY: Lung Cancer CT DLP: 528.70 mGycm. Automated Exposure Control for Dose Reduction was Utilized. TECHNIQUE: CT scan of the thorax is performed following with IV Contrast, patient injected with 70 m L of Isovue 300. FINDINGS: LUNGS: Background moderate underlying emphysematous changes greatest in bilateral upper lungs is rede monstrated. Postsurgical change left hilar level with posterior inferior extension is redemonstrated. Persistent tiny amount of pleural thickening and/or fluid with mild left basilar linear scarring and left-sided volume loss. Mild parenchymal scarring anterior right lung base is redemonstrated. Stabl e 5 x 3 mm nodule anterior right mid lung axial image 29 chronic study. Stable additional smaller nod ules largest subpleural region anterolateral right midlung measuring 6 mm axial image 36. Stable 2 ad jacent small nodules anterior right upper lobe axial image 20. No new or enlarging greater than 5 mm pulmonary nodules. MEDIASTINUM: There are no new greater than 1 cm hilar or mediastinal lymph nodes. No cardiomegaly o r pericardial effusion is seen. Bovine arch with direct origin left vertebral artery from the aortic arch which is normal variant is redemonstrated. Heterogeneous multinodular thyroid gland redemonstrat ed. Prominent main pulmonary artery of 3.2 cm axial image 27 suggesting underlying pulmonary artery h ypertension. OTHER: Cholecystectomy clips redemonstrated. Slight scoliotic curvature in the lumbar spine is partia lly imaged. Splenule in the pancreatic tail is redemonstrated. IMPRESSION: No new suspicious mass or adenopathy to suggest active neoplastic recurrence. Moderate em physematous change with posttreatment change left lung redemonstrated. No significant change from mos t recent CTs.
== END | disposition home or self-care (01) ==
LOC: RADCTMAIN 07:47
PROVIDERS: ATTEND Internal Medicine Hematology & Oncology
DX: C34.32 Malignant neoplasm of lower lobe, left bronchus or lung (principal); J43.9 Emphysema, unspecified
CPT/HCPCS: 82565; 84520; 71260; 36415; Q9967

== ENCOUNTER → 2023-01-11 | Outpatient (CLI) | payer MEDICARE ==
--- NOTE | 2023-01-11 15:19 | MR ---
EXAMINATION TYPE: MR lumbar spine wo con DATE OF EXAM: 01/11/2023 1:54 PM COMPARISON: 12/28/2018, 12/15/2020 CLINICAL INDICATION:Male, 77 years old with history of M48.07; Low back pain TECHNIQUE: Multi planar, multi sequence imaging was performed utilizing: T1-weighted, T2-weighted, a nd turbo inversion recovery imaging of the lumbar spine. IV Contrast: None. FINDINGS: Alignment: The lumbar vertebral bodies have preserved heights and alignment. Cord: The conus medullaris and the distal spinal cord appear unremarkable with regards to their signa l intensity and morphology. Bones/Discs: Modic endplate changes are seen throughout the spine. Osteophytes and Scattered Schmorl' s nodes are present throughout the spine. There is inversion recovery signal likely reactive along th e adjoining endplates of L3 and L4 which is new from prior MRI and 12/15/2021. Scattered disc desiccat ion is present. The spinous processes. Close approximation to each other. T12-L1: No evidence of significant spinal canal stenosis or neural foraminal stenosis. L1-L2: Disc bulge and facet joint arthropathy result in mild spinal canal and moderate bilateral neur al foraminal stenosis. L2-L3: Disc bulge and facet joint arthropathy result in mild spinal canal and moderate bilateral neur al foraminal stenosis. L3-L4: Disc bulge and facet joint arthropathy result in moderate to severe spinal canal and moderate to severe bilateral neural foraminal stenosis. L4-L5: Disc bulge and facet joint arthropathy result in mild spinal canal and moderate bilateral neur al foraminal stenosis. L5-S1: The disc is rounded posterior morphology without significant spinal canal stenosis. Facet join t arthropathy with severe right and moderate severe left neural foraminal stenosis. No significant spinal canal or neural foraminal stenosis in the remainder of the visualized levels. Other findings: None. IMPRESSION: 1. New bony edema involving the adjoining endplates of L3 and L4. This is likely reactive in the deg eneration bases. 2. L3-L4 moderate to severe spinal canal stenosis secondary to disc degeneration and facet joint art hropathy. This is mildly progressed from prior. 3. Multilevel disc degeneration with associated osteoarthritic changes worse at L3-L4 and L5-S1 with severe right and moderate to severe left neural foraminal stenosis 4. Finding suggestive of Baastrup's disease.
== END | disposition home or self-care (01) ==
LOC: RADMRIMAIN 13:01
PROVIDERS: ATTEND Neurological Surgery
DX: M48.07 Spinal stenosis, lumbosacral region (principal); M51.36 Other intervertebral disc degeneration, lumbar region; M99.73 Connective tissue and disc stenosis of intervertebral foramina of lumbar region; M47.816 Spondylosis without myelopathy or radiculopathy, lumbar region; M47.817 Spondylosis without myelopathy or radiculopathy, lumbosacral region
CPT/HCPCS: 72148

== ENCOUNTER 2023-01-17 10:11 | Emergency (ER) | payer MEDICARE ==
[2023-01-17 10:16] VITALS: RESP 20; TEMP 97.7
[2023-01-17] MEDS ORDERED: methylPREDNISolone SOD SUCCI 125 MG/2 ML VIAL IM ONE (11:27)
--- NOTE | 2023-01-17 11:32 | ED ---
General Adult HPI - General Chief complaint: Allergic Reaction Stated complaint: allergic reaction Time Seen by Provider: 01/17/23 10:15 Source: patient, RN notes reviewed, old records reviewed Mode of arrival: ambulatory Limitations: no limitations - History of Present Illness Initial comments: This is 77-year-old male who states he started breaking out in a rash is extremely itchy is morning he took Benadryl and it seemed to stop the itching and most of the rash is resolved. Patient denies any difficulty breathing or difficulty swallowing. Patient states he has had this before. Patient does not know what he is ALLERGIC to. Patient is going to make a list try to determine that. Patient states feeling considerably better at this time. Patient denies any chest pain or palpitations. Patient denies any fever chills. - Related Data Home Medications Medication Instructions Recorded Confirmed Tamsulosin HCl [Flomax] 0.4 mg PO BID 03/29/18 04/09/22 atenoloL [Tenormin] 50 mg PO DAILY 03/29/18 04/09/22 Rosuvastatin Calcium [Crestor] 5 mg PO MOWEFR@2100 02/20/20 04/09/22 Finasteride [Proscar] 5 mg PO HS 03/03/20 04/09/22 Acetaminophen Tab [Tylenol] 250 mg PO Q6HR PRN 01/09/21 04/09/22 Ibuprofen [Advil] 200 mg PO Q6HR PRN 04/09/22 04/09/22 Previous Rx's Medication Instructions Recorded predniSONE [Deltasone] 40 mg PO DAILY #8 tab 01/17/23 Allergies Allergy/AdvReac Type Severity Reaction Status Date / Time Penicillins Allergy Rash/Hives Verified 01/17/23 10:16 atorvastatin AdvReac leg cramps Verified 01/17/23 10:16 Review of Systems ROS Statement: Those systems with pertinent positive or pertinent negative responses have been documented in the HPI. ROS Other: All systems not noted in ROS Statement are negative. Past Medical History Past Medical History: Asthma, COPD, Diabetes Mellitus, GERD/Reflux, Hyperlipidemia, Osteoarthritis (OA), Pneumonia, Prostate Disorder Additional Past Medical History / Comment(s): LEFT LOWER LOBE PNEUMONIA. [place]. BPH. Chronic low back pain. diet control diabetic History of Any Multi-Drug Resistant Organisms: None Reported Past Surgical History: Cholecystectomy, Orthopedic Surgery, Tonsillectomy Additional Past Surgical History / Comment(s): 03/05/20 BRONCHOSCOPY. R rotator cuff surgery. Lumbar epidural injections, colonoscopy Past Anesthesia/Blood Transfusion Reactions: No Reported Reaction Past Psychological History: No Psychological Hx Reported Smoking Status: Former smoker Past Alcohol Use History: Occasional Past Drug Use History: None Reported - Past Family History Father Family Medical History: Cancer Additional Family Medical History / Comment(s): Pt cannot recall type of cancer. Mother Family Medical History: Coronary Artery Disease (CAD) General Exam - General Exam Comments Initial Comments: GENERAL: Patient is well-developed and well-nourished. Patient is nontoxic and well- hydrated and is in mild distress. ENT: Neck is soft and supple. No significant lymphadenopathy is noted. Oropharynx is clear. Moist mucous membranes. Neck has full range of motion without eliciting any pain. EYES: The sclera were anicteric and conjunctiva were pink and moist. Extraocular movements were intact and pupils were equal round and reactive to light. Eyelids were unremarkable. PULMONARY: Unlabored respirations. Good breath sounds bilaterally. No audible rales rhonchi or wheezing was noted. CARDIOVASCULAR: There is a regular rate and rhythm without any murmurs gallops or rubs. ABDOMEN: Soft and nontender with normal bowel sounds. SKIN: Patient has hives on the posterior neck and upper back. Patient has no rash remaining on his forearms. NEUROLOGIC: Patient is alert and oriented x3. Cranial nerves II through XII are grossly intact. Motor and sensory are also intact. Normal speech, volume and content. Symmetrical smile. MUSCULOSKELETAL: Normal extremities with adequate strength and full range of motion. LYMPHATICS: No significant lymphadenopathy is noted PSYCHIATRIC: Normal psychiatric evaluation. Limitations: no limitations Course Vital Signs 01/17/23 01/17/23 01/17/23 10:14 11:15 11:18 Temperature 97.7 F Pulse Rate 67 68 Respiratory 20 20 20 Rate Blood Pressure 168/83 165/95 O2 Sat by Pulse 99 98 Oximetry Disposition Clinical Impression: Allergic reaction Disposition: HOME SELF-CARE Condition: Good Instructions (If sedation given, give patient instructions): Allergies (ED) Additional Instructions: Patient should use Benadryl when necessary for itching or rash and patient should return to the emergency department if is any difficulty breathing or swallowing Prescriptions: predniSONE [Deltasone] 40 mg PO DAILY #8 tab Is patient prescribed a controlled substance at d/c from ED?: No Referrals: Kenji Painter DO [Primary Care Provider] - 1-2 days Time of Disposition: 11:31
[2023-01-17 12:14] VITALS: BP 130/60; PULSE 86
== END 2023-01-17 12:14 | disposition home or self-care (01) ==
LOC: EC 10:11
DX: T78.40XA Allergy, unspecified, initial encounter (principal); E11.9 Type 2 diabetes mellitus without complications; J44.9 Chronic obstructive pulmonary disease, unspecified; N40.0 Benign prostatic hyperplasia without lower urinary tract symptoms; E78.5 Hyperlipidemia, unspecified; K21.9 Gastro-esophageal reflux disease without esophagitis; Z79.899 Other long term (current) drug therapy; Z88.0 Allergy status to penicillin; Z88.8 Allergy status to other drugs, medicaments and biological substances; Z90.49 Acquired absence of other specified parts of digestive tract; Z87.891 Personal history of nicotine dependence
CPT/HCPCS: 99283; 96372; J2930

== ENCOUNTER → 2023-02-04 | Outpatient (CLI) | payer MEDICARE ==
[2023-02-04 10:06] LABS: African American GFR (CKD) 82 (>60 ml/min/1.73 sqM); Blood Urea Nitrogen 18 mg/dL (9-20); Non-African American GFR(CKD) 71 (>60 ml/min/1.73 sqM)
--- NOTE | 2023-02-04 12:00 | CT ---
EXAMINATION TYPE: CT chest w con DATE OF EXAM: 02/04/2023 COMPARISON: 08/04/2022, 01/27/2022 HISTORY: 77-year-old male C34.9, Follow up for lung cancer. TECHNIQUE: Contiguous axial scanning of the chest after the administration of 100ml mL of Isovue 300. Coronal/sagittal reconstructions performed. CT DLP: 551.8mGycm. Automatic exposure control utilized for a dose reduction. FINDINGS: Heart normal size with trace pericardial fluid anteriorly. Ascending aorta ectatic and 3.7 cm. Bovine configuration to the aortic arch with additional direct ta keoff of the left vertebral artery directly from the aortic arch. A couple hypodensities within the right lobe of the thyroid gland measuring up to 1.1 cm, significant ly changed. Scattered nonenlarged mediastinal lymph nodes are redemonstrated. Similar asymmetric elevation left hemidiaphragm with some mild smooth pleural thickening and some juancarlos gical material medial left base. Subpleural reticulations peripherally of the left base are unchanged. Some patchy subpleural opacity here measuring 1.6 cm is new. Background moderate to advanced centrilobular emphysema. Patient status post right lower lobectomy. A few pulmonary nodules anterior mid to lower right lung measuring up to 5 mm are unchanged. However, a subpleural 9 mm pulmonary nodule, axial image 38 is minimally larger from 7 mm, previously. Visualized upper abdomen shows cholecystectomy clips and suspected splenule at the tail of the pancre as. Adrenal glands within normal limits. Mild to moderate stool burden. Bones: Mild to moderate degenerative disc disease lower thoracic spine. No osseous destructive proces s. IMPRESSION: 1. COPD with moderate to advanced emphysema and postsurgical change of left lower lobectomy. 2. A 1.6 cm subpleural focal opacity at the left base is new. This could represent some nodular atele ctasis or progressive scarring. Short interval follow-up to exclude metastatic disease. 3. Pulmonary nodules in the anterior right mid to lower lung are largely unchanged. One of these nodu les measures 9 mm now versus 7 mm, previously. Again, reassess that short interval follow-up.
== END | disposition home or self-care (01) ==
LOC: RADCTMAIN 09:21
PROVIDERS: ATTEND Internal Medicine Hematology & Oncology
DX: Z03.89 Encounter for observation for other suspected diseases and conditions ruled out (principal); C34.32 Malignant neoplasm of lower lobe, left bronchus or lung; J43.2 Centrilobular emphysema; R91.8 Other nonspecific abnormal finding of lung field
CPT/HCPCS: 82565; 84520; 71260; 36415; Q9967

== ENCOUNTER → 2023-04-22 | Outpatient (CLI) | payer MEDICARE ==
--- NOTE | 2023-04-22 08:33 | US ---
EXAMINATION TYPE: US venous doppler duplex LE LT DATE OF EXAM: 04/22/2023 8:00 AM COMPARISON: NONE CLINICAL INDICATION: Male, 77 years old with history of I82.409 embolism; Gastroc SVT seen at [facility] on 04/14 after back surgery SIDE PERFORMED: Left TECHNIQUE: The lower extremity deep venous system is examined utilizing real time linear array sonog kandice with graded compression, doppler sonography and color-flow sonography. VESSELS IMAGED: Common Femoral Vein Deep Femoral Vein Greater Saphenous Vein * Femoral Vein Popliteal Vein Small Saphenous Vein * Proximal Calf Veins (* superficial vessels) Grayscale, color doppler, spectral doppler imaging performed of the deep veins of the lower extremiti es. There is normal flow, compressibility, vascular waveforms. Left Leg: Negative for DVT No SVT redemonstrated in Lt gastroc veins, patient was on blood thinners IMPRESSION: 1. No ultrasound evidence for deep venous thrombosis of the left lower extremity. 2. No superficial venous thrombosis in the left gastroc veins on today's exam.
== END | disposition home or self-care (01) ==
LOC: RADUSWWP 07:24
PROVIDERS: ATTEND Family Medicine
DX: I82.402 Acute embolism and thrombosis of unspecified deep veins of left lower extremity (principal); N17.9 Acute kidney failure, unspecified

== ENCOUNTER → 2023-05-06 | Outpatient (CLI) | payer MEDICARE ==
[2023-05-06 10:49] LABS: African American GFR (CKD) 44 (>60 ml/min/1.73 sqM); Blood Urea Nitrogen 36 mg/dL (9-20); Non-African American GFR(CKD) 38 (>60 ml/min/1.73 sqM)
--- NOTE | 2023-05-09 14:12 | CT ---
EXAMINATION TYPE: CT chest wo con DATE OF EXAM: 05/06/2023 COMPARISON: 02/04/2023, 08/04/2022 HISTORY: 77-year-old male C34.32, h/o lung CA, f/u TECHNIQUE: Contiguous axial scanning of the chest without IV contrast. Coronal/sagittal reconstructio ns performed. CT DLP: 728mGycm. Automatic exposure control utilized for a dose reduction. FINDINGS: Heart normal size without pericardial effusion. Ectatic ascending aorta and 3.8 cm. Variant direct takeoff of the left vertebral artery directly from the aortic arch along with bovine configuration. Underlying hypodense thyroid nodules measuring up to 1.0 cm. Borderline caliber to the main right and left pulmonary arteries measuring up to 2.7 cm suggesting un derlying pulmonary arterial hypertension. No thoracic lymphadenopathy by CT size criteria. There is volume loss and pleural parenchymal scarring at the left base. COPD with advanced upper lung predominant emphysematous change. * A 7 mm posterior right upper lobe pulmonary nodule on axial 18 previously measured 5 mm on 022. * Patient is status post left lower lobectomy. * Otherwise, scattered 5 mm smaller bilateral pulmonary nodules remain unchanged. * The previous 9 mm subpleural pulmonary nodule anterior right lower lung, 39 is less conspicuous. * The focal subpleural opacity at the posterior left base has cleared. * No consolidation or pleural 2.1 cm focal soft tissue area at the pancreatic tail remains unchanged back to at least 08/04/2022 cotton ggesting normal variation. Cholecystectomy clips. Moderate to advanced degenerative disc disease upper lumbar spine. No osseous destructive. A few smal l sclerotic foci remain unchanged, likely bone islands. IMPRESSION: 1. COPD with moderate to advanced emphysema, status post left lower lobectomy. 2. The previous nodularity which was becoming more pronounced is either less conspicuous or has resol kvng. 3. However, a 7 mm posterior right upper lobe pulmonary nodule previously measured 5 mm and should be reassessed at follow-up. 4. Otherwise, other scattered 5 mm and smaller pulmonary nodules remain unchanged.
== END | disposition home or self-care (01) ==
LOC: RADCTMAIN 09:19
PROVIDERS: ATTEND Internal Medicine Hematology & Oncology
DX: C34.32 Malignant neoplasm of lower lobe, left bronchus or lung (principal); J43.9 Emphysema, unspecified; R91.8 Other nonspecific abnormal finding of lung field; Z90.2 Acquired absence of lung [part of]; Z71.3 Dietary counseling and surveillance
CPT/HCPCS: 36415; 71250; 82565; 84520

== ENCOUNTER → 2023-12-21 | Outpatient (CLI) | payer MEDICARE ==
--- NOTE | 2023-12-22 10:28 | CT ---
EXAMINATION TYPE: CT chest wo con DATE OF EXAM: 12/21/2023 COMPARISON: 05/06/2023 HISTORY: lung ca CT DLP: 551.2 mGycm, Automated exposure control for dose reduction was used. CONTRAST: Performed injected with 0 mL of Isovue 300. TECHNIQUE: Axial images were obtained at 5 mm thick sections. Reconstructed images are reviewed on AVST computer in the coronal plane. FINDINGS: Right lobe thyroid may contain hypodensity. Consider ultrasound for additional evaluation. Multiple nodules are present within the upper lung gibson. 2 nodules measuring approximately 0.4 cm e ach in the anterior right upper lung field may have enlarged over the interval. Series 4 image 21. A nodule within the posterior right lung upper lobe is stable in size. Couple of pleural-based nodules identified may be slightly larger than comparison. Series 4 image 37, series 4 image 21. Advanced emphysematous changes are present. No enlarged mediastinal or hilar nodes are evident. The ascending aorta diameter at the level of the main pulmonary artery is 3.9 cm. The main pulmonary artery diameter at the bifurcation is 3.[address] sections are obtained through the upper abdomen. Abdomen is essentially unremarkable. IMPRESSION: 1. Couple of small nodules within the anterior right upper lung field have increased slightly over th e interval. Couple pleural-based densities mammogram increased slightly over the interval. Consider f ollow-up with PET/CT. 2. New nodules are not identified.
== END | disposition home or self-care (01) ==
LOC: RADCTMAIN 12:48
PROVIDERS: ATTEND Internal Medicine Hematology & Oncology
DX: C34.32 Malignant neoplasm of lower lobe, left bronchus or lung (principal); R91.8 Other nonspecific abnormal finding of lung field; R92.30 Dense breasts, unspecified; Z71.3 Dietary counseling and surveillance
CPT/HCPCS: 71250

== ENCOUNTER → 2025-01-07 | Outpatient (CLI) | payer OTHER ==
--- NOTE | 2025-01-07 13:59 | US ---
EXAMINATION TYPE: US kidneys/renal and bladder DATE OF EXAM: 01/07/2025 COMPARISON: MRI lumbar spine arch 2022 CLINICAL INDICATION: Male, 79 years old with history of R31.9 HEMATURIA, UNSPECIFIED; TECHNIQUE: Grayscale imaging of the bilateral kidneys and urinary bladder: FINDINGS: EXAM MEASUREMENTS: Right Kidney: 10.5x5.6x7.0 cm Left Kidney: 11.2x5.9x4.9 cm Right Kidney: multiple echogenic foci seen, Largest: 1. 0.7cm 2. 0.5cm anechoic area seen: 0.8x0.7x0.9cm ?possible slightly dilated renal pelvis Left Kidney: No hydronephrosis or masses seen Bladder: wnl Prostate: ? slightly enlarged: 5.2x5.1x4.9cm Hyperechoic area seen adj to prostate/posterior bladder: 2.2x3.0x2.2cm Bilateral Jets seen: Yes A few tiny thin-walled simple cysts scattered throughout right kidney are seen and do not require fol low-up IMPRESSION: 1. Probable nonobstructing right renal calculi. Mild right-sided hydronephrosis. Consider CT follow-u p to further evaluate. 2. Enlarged prostate consistent with BPH bulging into the bladder base. Correlate clinically and with PSA values. [facility], Workstation: [place], 01/07/2025 1:56 PM
== END | disposition home or self-care (01) ==
LOC: RADUSWWP 13:03
PROVIDERS: ATTEND Family Medicine
DX: N40.0 Benign prostatic hyperplasia without lower urinary tract symptoms (principal); N13.30 Unspecified hydronephrosis
CPT/HCPCS: 76770

== ENCOUNTER → 2025-03-04 | Outpatient (CLI) | payer OTHER ==
--- NOTE | 2025-03-04 12:15 | CT ---
EXAMINATION TYPE: CT abdomen pelvis wo con DATE OF EXAM: 03/04/2025 11:37 AM COMPARISON: Correlation PET/CT 03/08/[address] chest 12/21/2023 CLINICAL INDICATION: Male, 79 years old with history of R91.1 LUNG NODULE; micro hematuria rt renal s tone TECHNIQUE: CT of the abdomen and pelvis without IV contrast. Sagittal and coronal reformats were crea kavitha on a separate workstation. Oral contrast used: without Oral Contrast (none if empty) CT DLP: 1090 mGycm, Automated exposure control for dose reduction was used. FINDINGS: LOWER CHEST: Borderline caliber main right pulmonary artery at 2.5 cm may reflect underlying pulmonar y arterial hypertension. Trace pericardial effusion. Advanced emphysematous change in the visualized lower lungs. A couple right basilar pulmonary nodules measuring up to 1.1 cm remain unchanged. ABDOMEN LIVER: Unremarkable GALLBLADDER AND BILE DUCTS: Cholecystectomy clips. PANCREAS: 1.9 cm nodular prominence of the pancreatic tail was present previously as well. SPLEEN: Unremarkable. ADRENAL GLANDS: Unremarkable. KIDNEYS AND URETERS: No nephrolithiasis or hydronephrosis. PELVIS BLADDER: Mildly thickened and trabeculated appearance to the bladder wall. Tiny pelvic phleboliths. P atulous right inguinal canal. No abnormal fluid collection in the pelvis. REPRODUCTIVE: Prostate gland enlargement 5.1 cm wide. There is soft tissue impressing into the base o f the bladder ABDOMEN & PELVIS STOMACH AND BOWEL: No evidence of bowel obstruction. Moderate stool burden. No pericolonic inflammato ry change. Mildly redundant sigmoid colon. PERITONEUM/RETROPERITONEUM: No evidence of pneumoperitoneum or free fluid. VASCULATURE: No evidence of aortic aneurysm. MUSCULOSKELETAL: Moderate degenerative change at the hips. Sclerotic foci throughout the visualized osseous structures, new from 03/08/2020. These changes seem m ore pronounced compared to 12/21/2023 as well. LYMPH NODES: No gross evidence for lymphadenopathy. SOFT TISSUE/ABDOMINAL WALL: Unremarkable IMPRESSION: 1. No nephrolithiasis or hydronephrosis. 2. New sclerotic foci throughout the visualized osseous structures compared to 03/08/2020. Correlate f or progression from that time with osseous metastatic disease. 3. Right basilar pulmonary nodules remain unchanged. There is residual pleural-parenchymal scarring a t the left base. 4. Prostatomegaly at 5.1 cm wide. There is mildly thickened and trabeculated appearance to the bladde r wall which may reflect chronic bladder outlet obstruction. Correlate with PSA values and patient's symptoms. [facility], , 03/04/2025 12:13 PM
== END | disposition home or self-care (01) ==
LOC: RADCTMAIN 10:25
PROVIDERS: ATTEND Urology
DX: N20.0 Calculus of kidney (principal); R31.1 Benign essential microscopic hematuria; R91.8 Other nonspecific abnormal finding of lung field; N40.0 Benign prostatic hyperplasia without lower urinary tract symptoms
CPT/HCPCS: 74176